=== PATIENT | male | born 1985 | race Caucasian/White ===

== ENCOUNTER 2018-12-04 15:05 | Outpatient (REF) | payer OTHER, SELFPAY ==
[2018-12-04 19:27] LABS: HCT 43.8 % (40.0-50.0); HGB 14.4 g/dL (13.5-17.5); Mean Corp. HGB Concentration 32.9 g/dL (32.0-36.0); Mean Corpuscular Hemoglobin 28.1 pg (27.0-33.0); Mean Corpuscular Volume 85.4 fL (80-95); Mean Platelet Volume 11.5 fL (8.0-11.0); Platelet Count 256 x1000/uL (130-400); RBC 5.13 m/cumm (4.50-6.00); RBC Distribution Width 12.8 % (11.8-14.1); White Blood Cell Count 7.42 k/cumm (4.4-10.8)
[2018-12-04 19:44] LABS: ALT 20 U/L (12-78); AST 12 U/L (15-37); Albumin 4.7 g/dL (3.4-5.0); Alkaline Phosphatase 73 U/L (46-116); Anion Gap 10.7 mmol/L (3-11); BUN 19 mg/dL (7-18); Bilirubin, Total 0.3 mg/dL (0.2-1.0); CO2 27.3 mmol/L (21.0-32.0); CREATININE 1.15 mg/dL (0.70-1.30); Calcium 9.4 mg/dL (8.5-10.1); Chloride 103 mmol/L (98-107); Glucose 99 mg/dL (70-100); Potassium 4.2 mmol/L (3.5-5.1); Sodium 141 mmol/L (136-145); TSH (W/Ref FT4) 8.27 uIU/mL (0.358-3.74); Total Protein 7.8 g/dL (6.4-8.2)
[2018-12-04 19:45] LABS: Hemoglobin A1C 5.7 % (4.5-6.2)
[2018-12-04 20:03] LABS: FREE T4 0.94 ng/dL (0.76-1.46)
== END 2018-12-04 15:25 ==
LOC: NCHCN 15:05
PROVIDERS: Visit Provider Nurse Practitioner Family
DX: R63.4 Abnormal weight loss (principal); Z83.3 Family history of diabetes mellitus; Z13.1 Encounter for screening for diabetes mellitus
CPT/HCPCS: 80053; 85027; 83036; 84439; 84443

== ENCOUNTER 2019-10-25 15:04 | Emergency (ER) | payer SELFPAY ==
[2019-10-25 15:10] VITALS: BP 138/74; PULSE 86; RESP 18; TEMP 37.1; O2SAT 98
--- NOTE | 2019-10-25 15:26 | ED.GENADUL_ITS ---
Discharge Plan Disposition Patient Disposition: HOME Condition: Stable Discharge Details Chief Complaint: Abd Prob Clinical Impression: Gastritis, Hernia, inguinal, right, Abdominal pain Primary Care Provider: None,None ED Provider: Mari Vila Home Meds and New Rx's Prescriptions: New sucralfate [Carafate] 100 mg/mL suspension 10 ml PO QACHS 10 Days Qty: 400 RF: 0 No Action ibuprofen 800 MG tablet 800 mg PO PRN PRNQty: 90 RF: 3 methadone 10 MG/ML concentrate 24 mg PO DAILY RF: 0 esomeprazole magnesium 20 mg Tablet,Delayed Release (Dr/Ec) 20 mg PO DAILY RF: 0 Discharge Instructions Instructions: Gastritis (ED), Abdominal Pain (ED) Additional Instructions: Follow up with primary care provider in 3-5 days. Return to ED sooner if any worsening or concerns. Increase oral fluids. Take medications as directed. Follow-up with surgery if continued pain and do not hesitate to return to the ED if any worsening. Referrals: Yvonne Ashraf DO [OSTEOPATHIC DOCTOR] - Discharge Data Discharge Date/Time-TO BE ENTERED AT DEPARTURE: 10/25/19 18:01 Medical Decision Making <EDITH Mina - Last Filed: 10/26/19 08:08> 33-year-old gentleman presenting with nausea, vomiting abdominal pain for the past 2-3 days. Patient appears uncomfortable but does not appear to have an acutely surgical abdominal examination. Patient has bilateral cremasteric reflexes present, testicles are unremarkable, nontender. I do believe I feel a small right inguinal hernia that is nontender. Evaluation certainly could be consistent with inguinal hernia, appendicitis, gastroenteritis, colitis, etc. but certainly not excluded to just these. There always could be a withdrawal component however based upon patient's history I find this to be less likely. Will obtain routine laboratory values including lactate and obtain abdomen and pelvis CT with contrast. In the meantime we will give IV fluid and Zofran. Discussed case with Dr. Tello who evaluated the patient himself. Please see his note. Laboratory values reveal a white count of 8.80 absolute neutrophils 7.01 INR 1.2 sodium 139 potassium 3.4 chloride 101, GFR greater than 60, lactate is pending as well as his urinalysis. Reports nausea is returning, will provide 25 IV Phenergan. Medical Records Medical records reviewed: Yes I reviewed the patient's medical records. Lab Data Lab results reviewed: Yes I reviewed the patient's lab results. Lab results narrative: Laboratory Tests Range/Units 10/25/19 10/25/19 10/25/19 15:20 15:20 15:20 WBC (4.4-10.8) k/cumm 8.80 RBC (4.50-6.00) m/cumm 5.59 Hgb (13.5-17.5) g/dL 15.6 Hct (40.0-50.0) % 47.2 MCV (80-95) fL 84.4 MCH (27.0-33.0) pg 27.9 MCHC (32.0-36.0) g/dL 33.1 RDW (11.8-14.1) % 12.7 Plt Count (130-400) x1000/uL 274 MPV (8.0-11.0) fL 10.5 Immature Gran % % 0.2 Neutrophils % 79.7 Lymphocytes % 13.2 Monocytes % 6.6 Eosinophils % 0.1 Basophils % 0.2 Absolute Neutrophils (1.2-6.7) k/cumm 7.01 H Absolute Lymphocytes (1.2-3.4) k/cumm 1.16 L Absolute Monocytes (0.11-0.7) k/cumm 0.58 Absolute Eosinophils (0.0-0.7) k/cumm 0.01 Absolute Basophils (0.0-0.2) k/cumm 0.02 PT (9.3-11.0) sec 12.3 H INR (0.9-1.1) 1.2 H APTT (21.0-31.4) sec 25.6 Sodium (136-145) mmol/L 139 Potassium (3.5-5.1) mmol/L 3.4 L Chloride (98-107) mmol/L 101 Carbon Dioxide (21.0-32.0) mmol/L 28.0 Anion Gap (3-11) mmol/L 10.0 BUN (7-18) mg/dL 11 Creatinine (0.70-1.30) mg/dL 1.14 Estimated GFR/1.73 m2 (mL/min/1.73m2) >= 60.00 Glucose (74-106) mg/dL 100 Calcium (8.5-10.1) mg/dL 9.5 Total Bilirubin (0.2-1.0) mg/dL 0.9 AST (15-37) U/L 18 ALT (16-63) U/L 23 Alkaline Phosphatase (46-116) U/L 57 Total Protein (6.4-8.2) g/dL 8.7 H Albumin (3.4-5.0) g/dL 5.3 H Lipase (73-393) U/L 135 <Mari Vila - Last Filed: 10/25/19 22:22> 1624: Assumed care patient from EDITH Meyers, pending lab results and CT abdomen pelvis. Lactate result is within normal limits. 1714: CT is within normal limits at this time. No evidence for appendicitis, or cholecystitis. Exam: CT Abdomen And Pelvis With Contrast Exam date and time: 10/25/2019 4:31 PM Age: 33 years old Clinical indication: Abdominal pain; Localized; Right lower quadrant (rlq); Patient HX: Rlq -groin pain, nausea, vomiting TECHNIQUE: Imaging protocol: Computed tomography of the abdomen and pelvis with intravenous contrast. COMPARISON: No relevant prior studies available. FINDINGS: Lungs: Pulmonary parenchymal calcification consistent with remote granulomatous organism exposure. Liver: Normal. No mass. Gallbladder and bile ducts: Normal. No calcified stones. No ductal dilation. Pancreas: Normal. No ductal dilation. Spleen: Normal. No splenomegaly. Adrenals: Normal. No mass. Kidneys and ureters: Normal. No hydronephrosis. Stomach and bowel: Unremarkable. No obstruction. No mucosal thickening. Appendix: No evidence of appendicitis. Intraperitoneal space: Unremarkable. No free air. No significant fluid collection. Vasculature: Unremarkable. No abdominal aortic aneurysm. Lymph nodes: Unremarkable. No enlarged lymph nodes. Bladder: Unremarkable as visualized. Reproductive: Unremarkable as visualized. Bones/joints: Unremarkable. No acute fracture. Soft tissues: Unremarkable. IMPRESSION: No acute abnormality identified. Discussed results with patient, he states that he has been taking omeprazole for the last year and a half, discussed follow-up with general surgery for possible scope. We will give him a GI cocktail and Carafate to see if that helps his symptoms. Patient discharged home with a prescription of sucralfate suspension. Instructed to take twice daily. Also referral given to follow-up with general surgery for possible endoscopy. Patient was hemodynamically stable throughout his stay. Given strict return instructions to return if any worsening abdominal pain, fever or any concerns. Patient verbalized understanding. This text was generated using Wortalation system, please disregard any oddities of phrase or misspellings. <Maxi Tello MD - Last Filed: 10/25/19 17:29> Patient seen, examined, and discussed with EDITH Tejeda and ALIVIA Vila. I agree with treatment plan as discussed/documented. HPI <EDITH Mina - Last Filed: 10/26/19 08:08> General Mode of arrival: ambulatory . Date/Time Provider Initiated Documentation: 10/25/19 15:05 . Limitations to Documentation: no limitations . Information obtained by: patient . HPI Narrative: 33-year-old gentleman who reports diffuse abdominal pain worse in the right lower quadrant and right groin, nausea, vomiting, diarrhea over the past 2-3 days. He is currently being weaned off his methadone however he has never had any symptoms like this while being weaned. He was able to eat a hamburger yesterday. He denies fever, recent travel, sick contact, or bad food exposure. He denies chest pain or shortness of breath. He denies black tarry stools or bright red blood in his stools. Denies dysuria or hematuria. Denies pain in his penis, scrotum, testicles. Denies penile discharge. Patient was seen by his primary care provider and sent here for evaluation of right lower quadrant jose pain Related Data Home Medications Medication Instructions Recorded Confirmed methadone 24 mg PO DAILY 09/29/15 10/25/19 ibuprofen 800 mg PO PRN PRN #90 tab-cap 10/09/15 10/25/19 esomeprazole magnesium 20 mg PO DAILY 10/25/19 10/25/19 sucralfate [Carafate] 10 ml PO QACHS 10 Days #400 ml 10/25/19 Previous Rx's Medication Instructions Recorded sucralfate [Carafate] 10 ml PO QACHS 10 Days #400 ml 10/25/19 Allergies Allergy/AdvReac Type Severity Reaction Status Date / Time Sulfa (Sulfonamide Allergy Intermediate Hives Unverified 10/25/19 16:51 Antibiotics) General Stated Complaint: Abd Prob DELON: 3 Review of Systems <EDITH Mina - Last Filed: 10/26/19 08:08> Constitutional Constitutional: Denies fatigue, Denies fever(s) and Denies headache(s) ENT Ears, Nose, Mouth, and Throat: Denies headache(s) Cardiovascular Cardiovascular: Denies chest pain and Denies dyspnea Respiratory Respiratory: Denies cough and Denies dyspnea Gastrointestinal Gastrointestinal: Reports abdominal pain, Denies diarrhea, Reports loose stools, Reports nausea and Reports vomiting Genitourinary Genitourinary: Denies dysuria and Denies testicular pain Musculoskeletal Musculoskeletal: Reports back pain Integumentary/Breasts Skin/Breast: Denies rash Neurologic Neurologic: Denies headache(s) Endocrine Endocrine: Denies fatigue PFSH <EDITH Mina - Last Filed: 10/26/19 08:08> Medical History Narcotic abuse (Chronic) Social History Smoking/Tobacco Use Status: Former Tobacco Use Tobacco: How many years used: 13 Alcohol Intake: former Drug use: Never Substance use type: former substance user Do you feel safe at home: Yes Do you feel safe in your relationship?: Yes Exam <EDITH Mina - Last Filed: 10/26/19 08:08> Const General: cooperative, healthy appearing, uncomfortable and no acute distress Orientation: alert, awake and oriented x3 HENMT Head: normal to inspection, normocephalic and atraumatic Mouth: moist mucous membranes Throat: posterior oropharynx normal Eyes Conjunctivae: conjunctivae normal Neck Neck: normal visual inspection, full ROM, trachea midline and supple Resp Effort & Inspection: normal respiratory effort and able to speak in complete sentences Auscultation: clear to auscultation bilaterally Cardio Rate: regular rate Rhythm: regular rhythm GI Inspection: normal to inspection Palpation: soft, not firm, no guarding, no masses, not rigid and tender (Diffusely) other (There is discomfort in the right inguinal region however I do not appreciate a bulge or obvious mass); with no rebound tenderness Auscultation: normal bowel sounds Male General Exam: Yes normal external exam Penis: normal penis Meatus: meatus normal Scrotum: scrotum normal (Scrotum normal except for right inguinal hernia) and inguinal hernia on the right (Upon standing, small hernia appreciated) Testes: normal Back/Spine/Pelvis Back: No back tenderness Skin General skin exam: no rashes or lesions noted Neuro General: patient alert, patient awake, moves all extremities and no focal motor deficits Motor: muscle tone normal throughout Sensory Exam: no sensory deficits noted Extrem General: normal to inspection, full ROM and capillary refill normal Psych Appearance: grossly normal Mental Status: mental status grossly normal Course <EDITH Mina - Last Filed: 10/26/19 08:08> Vital Signs Vital signs: Vital Signs Temperature 37.1 C 10/25/19 15:10 Pulse 86 10/25/19 15:10 Respiratory Rate 18 10/25/19 15:10 Blood Pressure 138/74 10/25/19 15:10 Pulse Oximetry 98 10/25/19 15:10 Temperature 37.1 C 10/25/19 15:10 Temperature Source Temporal Artery Scan 10/25/19 15:10 Pulse 86 10/25/19 15:10 Respiratory Rate 18 10/25/19 15:10 Respiratory Effort 10/25/19 15:13 Blood Pressure 138/74 10/25/19 15:10 Blood Pressure Position Sitting 10/25/19 15:10 Pulse Oximetry 98 10/25/19 15:10 Oxygen Delivery Method Room Air 10/25/19 15:10 Oxygen Flow Rate 0 10/25/19 15:10 Pain Level 8 10/25/19 15:10 Sign Out <EDITH Mina - Last Filed: 10/26/19 08:08> Sign Out Data: Sign Out Comment: Pending CT, lactate, urinalysis. Pending reevaluation and final disposition. Last updated by Carlos Tejeda PA at 10/25/19 16:04
[2019-10-25] MEDS: Ondansetron 4 MG/2 ML VIAL IVP (15:27)
--- NOTE | 2019-10-25 15:30 | DI.CT_ITS ---
EXAM: CT ABDOMEN PELVIS W CLINICAL HISTORY: Right lower quadrant-groin pain nausea and vomitin TECHNIQUE: COMPARISON: No exams were available for comparison FINDINGS: CT examination of the abdomen and pelvis was performed with bolus infusion of 100 cc of Omnipaque 350 . Images obtained through the lung bases are unremarkable except for small calcified granuloma at the left lung base. The liver and spleen appear normal as does the pancreas. Gallbladder and bile ducts are unremarkable. Adrenals appear normal bilaterally. Kidneys appear normal with no evidence of renal mass, hydronephro sis, or nephrolithiasis There is no evidence of abdominal or pelvic adenopathy. Abdominal aorta is of normal diameter and no major vascular abnormality is seen. Appendix is normal. No evidence diverticulitis or bowel obstruction. Apart from a tiny fat containing right inguinal hernia, no abdominal wall hernia is seen. Urinary bladder may have a mildly thickened wall but this is a questionable finding due to lack of di stention. Impression: No evidence of acute process, please correlate clinically with a question of mild urinary bladder wal l thickening, cystitis not excluded.. RADIATION DOSE DELIVERED: 624.13mGy.cm Total DLP 624.13mGy.cm Total DLP 624.13mGy.cm Total DLP DATA REPOSITORY: All CT scans at this facility are submitted to the National Radiology Data Registry (NRDR) Dose Index Registry (DIR) with the [employer] (ACR). RADIATION OPTIMIZATION: All CT scans at this facility use at least one of these dose optimization te chniques: automated exposure control; mA and/or kV adjustment per patient size (includes targeted exa ms where dose is matched to clinical indication); or iterative reconstruction.
[2019-10-25 15:39] LABS: Abs Immature Grans 0.02 k/cumm (0.0-0.09); Absolute Basophil Count 0.02 k/cumm (0.0-0.2); Absolute Eosinophil Count 0.01 k/cumm (0.0-0.7); Absolute Lymphocyte Count 1.16 k/cumm (1.2-3.4); Absolute Monocyte Count 0.58 k/cumm (0.11-0.7); Absolute Neutrophil Count 7.01 k/cumm (1.2-6.7); Basophils % 0.2; Eosinophils % 0.1; HCT 47.2 % (40.0-50.0); HGB 15.6 g/dL (13.5-17.5); Immature Grans % 0.2 %; Lymphocytes % 13.2; Mean Corp. HGB Concentration 33.1 g/dL (32.0-36.0); Mean Corpuscular Hemoglobin 27.9 pg (27.0-33.0); Mean Corpuscular Volume 84.4 fL (80-95); Mean Platelet Volume 10.5 fL (8.0-11.0); Monocytes % 6.6; Neutrophils % 79.7; Platelet Count 274 x1000/uL (130-400); RBC 5.59 m/cumm (4.50-6.00); RBC Distribution Width 12.7 % (11.8-14.1)
[2019-10-25 15:52] LABS: ALT 23 U/L (16-63); AST 18 U/L (15-37); Albumin 5.3 g/dL (3.4-5.0); Alkaline Phosphatase 57 U/L (46-116); BUN 11 mg/dL (7-18); Bilirubin, Total 0.9 mg/dL (0.2-1.0); CREATININE 1.14 mg/dL (0.70-1.30); Calcium 9.5 mg/dL (8.5-10.1); Chloride 101 mmol/L (98-107); Glucose 100 mg/dL (74-106); Lipase 135 U/L (73-393); Potassium 3.4 mmol/L (3.5-5.1); Sodium 139 mmol/L (136-145); Total Protein 8.7 g/dL (6.4-8.2)
[2019-10-25] MEDS: Normal Saline 1,000 ML 1000 ML IV (15:53)
[2019-10-25 15:55] LABS: INR 1.2 (0.9-1.1); PTT Activated 25.6 sec (21.0-31.4); Prothrombin Time 12.3 sec (9.3-11.0)
--- NOTE | 2019-10-25 16:16 | NUR.NOTE ---
lactate draw off existing IV in L AC after 10mls waste and immediately sent to lab. pt requested pain medication, provider holding for CT
[2019-10-25 16:19] LABS: Lactate 1.3 mmol/L (0.6-1.4)
[2019-10-25 16:50] VITALS: BP 126/77; PULSE 66; RESP 16; TEMP 37.2; O2SAT 96
[2019-10-25] MEDS: ACETAMINOPHEN 1,000 MG/100 ML BTL 400 MG IVPB (16:55)
--- NOTE | 2019-10-25 17:04 | DI.VRAD_ITS ---
PROCEDURE INFORMATION: Exam: CT Abdomen And Pelvis With Contrast Exam date and time: 10/25/2019 4:31 PM Age: 33 years old Clinical indication: Abdominal pain; Localized; Right lower quadrant (rlq); Patient HX: Rlq -groin pain, nausea, vomiting TECHNIQUE: Imaging protocol: Computed tomography of the abdomen and pelvis with intravenous contrast. COMPARISON: No relevant prior studies available. FINDINGS: Lungs: Pulmonary parenchymal calcification consistent with remote granulomatous organism exposure. Liver: Normal. No mass. Gallbladder and bile ducts: Normal. No calcified stones. No ductal dilation. Pancreas: Normal. No ductal dilation. Spleen: Normal. No splenomegaly. Adrenals: Normal. No mass. Kidneys and ureters: Normal. No hydronephrosis. Stomach and bowel: Unremarkable. No obstruction. No mucosal thickening. Appendix: No evidence of appendicitis. Intraperitoneal space: Unremarkable. No free air. No significant fluid collection. Vasculature: Unremarkable. No abdominal aortic aneurysm. Lymph nodes: Unremarkable. No enlarged lymph nodes. Bladder: Unremarkable as visualized. Reproductive: Unremarkable as visualized. Bones/joints: Unremarkable. No acute fracture. Soft tissues: Unremarkable. IMPRESSION: No acute abnormality identified. Dictated and Authenticated by: Keith Haider MD. Ordering:AMY Gonzalez MD
[2019-10-25 17:08] LABS: Bilirubin Small (Negative); Blood Trace-intact (Negative); Clarity Clear (Clear); Glucose Negative (Negative); Ketones >=160 mg/dL (Negative); Leukocyte Esterase Negative (Negative); Nitrite Negative (Negative); Specific Gravity 1.025 (1.005-1.025); Urobilinogen 0.2 EU/dL (Up TO 0.2); pH 6.5 (5-8)
[2019-10-25 17:27] LABS: Bacteria Negative HPF (Negative); C & S Indicated? No; Casts Negative LPF (Negative); Crystals Negative HPF (Negative); Epithelial Cells Negative HPF (Negative); Mucus Moderate (Negative); Other Cells Negative (Negative); WBC 0-2 HPF (0-5)
[2019-10-25] MEDS: Sucralfate 1 GM TAB PO (17:29)
[2019-10-25 17:40] VITALS: BP 131/76; PULSE 77; RESP 16; O2SAT 99
== END 2019-10-25 18:01 | disposition home or self-care (01) ==
PROVIDERS: Physician Assistant; Emergency Provider Registered Nurse Emergency
DX: K29.00 Acute gastritis without bleeding (principal); K40.90 Unilateral inguinal hernia, without obstruction or gangrene, not specified as recurrent; R10.31 Right lower quadrant pain
CPT/HCPCS: 36415; 80053; 83690; 96361; 96365; 96375; 99284; 74177; 81003; 81015; 83605; 85025; 85610; 85730; J0131; J2405

== ENCOUNTER 2019-12-06 08:40 | Outpatient (CLI) | payer SELFPAY ==
[2019-12-09 14:45] LABS: COVID-19 RT-PCR Result NEGATIVE (Negative)
== END 2019-12-06 09:00 ==
PROVIDERS: PCP Nurse Practitioner Family; Visit Provider Surgery
DX: Z11.59 Encounter for screening for other viral diseases (principal); Z01.818 Encounter for other preprocedural examination
CPT/HCPCS: U0003

== ENCOUNTER 2019-12-09 08:18 | Day surgery (SDC) | payer SELFPAY ==
[2019-12-09 08:21] VITALS: BP 127/68; PULSE 66; RESP 17; TEMP 36.4; O2SAT 99
[2019-12-09] MEDS: Lactated Ringers 1,000 ML 80 ML IV (08:50)
--- NOTE | 2019-12-09 10:43 | STOM_PTH ---
PATIENT: Dallas Scruggs LOC: [facility] U#:[id number] AGE/SX: 34/M ROOM: RE12/09/[address]: Yvonne Ashraf : 1985 BED: DIS: 12/09/2019 SPEC #: [id number] RECD: 12/09/19 12:31 STATUS: GREGORIO REЕлена #: [id number] EVANGELIST: 12/09/19 10:[address]: Yvonne Ashraf DEPT: Surgical Specimen RECD BY: Natalia Morrissey ENTERED: 12/09/19 12:32 SP TYPE: STOMACH OTHR DR: Yary Barrera Tissues: 1 - BIOPSY BOWEL 2 - STOMACH BIOPSY 3 - STOMACH BIOPSY 4 - ESOPHAGUS BIOPSY 5 - ESOPHAGUS BIOPSY Procedures: GROSS AND MICRO LEVEL 4 Comments: [id number]
--- NOTE | 2019-12-09 10:54 | PDOC.DSDIS_ITS ---
Discharge Plan Disposition Patient Disposition: HOME Condition: Good Discharge Details Reason For Visit: VOMITING/ABDOMINAL PAIN Attending Provider: Yvonne Ashraf Primary Care Provider: Yary Barrera [place] Meds and New Rx's Prescriptions: New pantoprazole [Protonix] 40 mg tablet,delayed release (DR/EC) 40 mg PO DAILY Qty: 30 RF: 12 Discontinued esomeprazole magnesium 20 mg Tablet,Delayed Release (Dr/Ec) 20 mg PO DAILY RF: 0 No Action topiramate 50 mg capsule,extended release 24hr 50 mg PO DAILY RF: 0 rizatriptan [Maxalt] 10 mg tablet See Rx Instructions PO .COMPLEX RF: 0 ibuprofen 800 MG tablet 800 mg PO PRN PRNQty: 90 RF: 3 methadone 10 MG/ML concentrate 18 mg PO DAILY RF: 0 Discharge Instructions Additional Instructions: Findings:sm hiatal hernia -change from Nexium to Protonix -Continue with lifestyle modifications: no alcohol, tobacco products, Aspirin or NSAID's (ibuprofen, Motrin, Naprosyn, aleve, etc), soda pop/any carbonated beverages, caffeine (including tea & chocolate), and acidic foods, (tomatoes, citrus, onions, peppermints) spicy foods. Do not lie down for 30 minutes after eating, and do not eat 2 hours prior to bedtime. Avoid wearing tight fitting clothing/ belts. Follow up: on Monday to schedule hernia repair. Please call if you develop: fevers >101.5 Nausea or Vomiting Abdominal pain that is not transient DAY SURGERY UNIT POST COLONOSCOPY INSTRUCTIONS 1. Because there will be medication in your system for the next 24 hours, you may feel a little sleepy. Your coordination will be affected. Therefore: a. Do not drive or operate dangerous equipment for 24 hours. b. Do not drink alcohol beverages for 24 hours (not even beer). c. Plan to go home and rest for the day. 2. Generally there are no restrictions on your activity after a day or so has gone by, but you may feel a bit fatigued for a few days. 3 After you arrive home you may have a light meal and return to a normal diet as you can tolerate it without feeling sick to your stomach. 4. After surgery, you may feel pain or discomfort. This should be only transient, but if it persists please contact your doctor. 5. If there are any questions regarding the findings of your procedure, please feel free to contact your doctor. 6. If you are unable to contact your doctor with a problem, contact the hospital at [phone]. 7. Continue all your regular medications unless directed otherwise. I understand the above instructions and have no questions. Signature of Patient or Responsible Adult Escort Date/Time Name of Responsible Adult Escort Signature of Nurse Date/Time Activity:: No lifting over 20 pounds or strenuous activity x24 hours Diet:: Small light meals x24 hours Discharge Orders Discharge Orders: Discharge Order (Routine); Ordered 12/09/19 Ordered By: Yvonne Ashraf DS: Diagnosis Discharge Diagnosis (1) Hiatal hernia with GERD: Status: Acute
[2019-12-09 11:25] VITALS: BP 112/82; PULSE 56; RESP 16; TEMP 36.3; O2SAT 100
--- NOTE | 2019-12-11 09:02 | W.PM.ENDDOP ---
Date of service: 12/11/19 Time of Service: 09:02 Endoscopy Report DATE OF PROCEDURE: 12/09/19 PRE-OP DIAGNOSIS: n/v/abdoinal pain POST-OP DIAGNOSIS: other PROCEDURE: egd w/ bx SURGEON: Yvonne Ashraf ANESTHESIA: MAC ESTIMATED BLOOD LOSS: 1 PATHOLOGY: other COMPLICATIONS: None DISPOSITION: same day PROCEDURE DESCRIPTION: After informed consent was obtained the patient was take to the procedure room and placed in a supine position. Monitors were applied and a time out was done. The patients name, date of , procedure type, allergies to medications and metal in their body was reviewed. A bite block was placed and the patient was sedated. Once sedated and comfortable the gastroscope was advanced through the oropharynx which was grossly normal into the esophagus. The proximal and mid-esophagus were nl. In the distal esophagus there was very small hiatal hernia noted. The scope was advanced into the stomach and through the pylorus into the 3rd portion of the duodenum. The duodenum was noted to be nl. Biopsies were done . The scope was retracted back into the stomach and biopsies were done to rule out H. pylori. All specimens are retrieved and no bleeding is noted. There were no ulcers/polyp/gastritis/or on other abnormalities.. The scope was retroflexed. The cardia and fundus were noted to be normal. There very small a hiatal hernia noted. The scope was retracted back into the esophagus and biopsies were done of the GE junction to rule out Gomez's. The Z line was regular. The GE junction was at 40 cm. The scope was removed and the patient was woken up and taken back to [facility] in stable condition. Follow up: monday
== END 2019-12-09 11:42 | disposition home or self-care (01) ==
PROVIDERS: PCP Nurse Practitioner Family; Visit Provider Surgery
PROC: 0DJ68ZZ Inspection of Stomach, Via Natural or Artificial Opening Endoscopic (ICD-10-PCS; CPT 43235; principal; 2019-12-09 09:15)
DX: R11.2 Nausea with vomiting, unspecified (principal); R10.9 Unspecified abdominal pain; K44.9 Diaphragmatic hernia without obstruction or gangrene; K31.89 Other diseases of stomach and duodenum; K21.0 Gastro-esophageal reflux disease with esophagitis
CPT/HCPCS: 43239; 88305; J2001; J2704

== ENCOUNTER 2019-12-13 12:31 | Outpatient (CLI) | payer SELFPAY ==
[2019-12-15 14:39] LABS: COVID-19 RT-PCR Result NEGATIVE (Negative)
== END 2019-12-13 12:51 ==
PROVIDERS: PCP Nurse Practitioner Family; Visit Provider Surgery
DX: Z11.59 Encounter for screening for other viral diseases (principal)
CPT/HCPCS: U0003

== ENCOUNTER 2019-12-16 06:14 | Day surgery (SDC) | payer SELFPAY ==
[2019-12-16] VITALS (8 sets, daily range): BP systolic 94–133; BP diastolic 53–86; PULSE 51–78; RESP 13–18; TEMP 36–36.5; O2SAT 96–100
[2019-12-16] MEDS: Lactated Ringers 1,000 ML 100 ML IV (07:00)
[2019-12-16] MEDS: Acetaminophen 500 MG TAB 1000 MG PO (07:42)
[2019-12-16] MEDS: Gabapentin 300 MG CAP PO (07:42)
[2019-12-16] MEDS: ceFAZolin 2 GM/50 ML BAG IVPB (08:31)
[2019-12-16] MEDS: Bupivacaine LIPOSOME/PF 133 MG/10 ML VIAL IJ (08:38)
[2019-12-16] MEDS: Bupivacaine 0.5% Pres-Free 30 ML VIAL (08:38)
--- NOTE | 2019-12-16 09:47 | ROE_ITS ---
Date of service: 12/16/19 Time of Service: 09:47 Operative Note Operative Note DATE OF PROCEDURE: 12/16/19 PRE-OP DIAGNOSIS: right inguinal hernia POST-OP DIAGNOSIS: other (moedium cord lipoma. small indirect ) SURGEON: Yvonne Hinds MANUFACTURER: Shari Beasley ANESTHESIA: MAC ESTIMATED BLOOD LOSS: 0 PATHOLOGY: none sent COMPLICATIONS: None Patient was transported to: PACU Patient's condition: stable Implants: see RN notes xtra small plug used INDICATIONS: The pt is here today for surgery regarding symptomatic --- inguinal hernia that has failed outpatient conservative medical management and he is here today for repair. Informed consent was obtained, explaining risks and benefits of the procedure including but not limited to bleeding, infection, pneumonia, blood clots, chronic pain, chronic numbness, damage to testicle resulting in removal, recurrence of hernia, reaction to Mesh necessitating removal, and other unforetold complications, and complications of anesthesia-which were addressed by the DEVELOPMENT REP. The patient is marked in preOp prior to the procedure DESCRIPTION OF PROCEDURE: The pt is then brought to the operative room suite. Anesthesia was administered per the Department of Anesthesia. The patient was prepped and draped in the usual sterile fashion using ChloraPrep scrub solution. Pause for the cause was done. He did receive preop IV antibiotics, and 30 mL of .25% Marcaine w/ epinephrine was used for local anesthetization. A #12 blade was used to make an incision over the external ring. Electrocautery used to provide hemostasis and dissect down to the fascia. The fascia was pretty much obliterated and there was nothing to open. The cord is elevated. The nerve was not identified. There is a large cord lipomas. This is tied off and then excised with electrocautery returned to the abdomen. Electro-cautery is used to provide hemostasis. A [place] drain was placed around the cord to assist in mobilization. The cord was explored. There was is very small hernia sac on the cord. There is no direct hernia pushing through the floor. The hernia sac is dissected off the cord using a combination of blunt dissection and electrocautery. Electrocautery is used to provide hemostasis. There are no contents within the hernia sac. The hernia sac is than inverted and returned to the abdominal cavity. A Xsmall size plug is than inserted into the defect thr ough the internal ring, and over sewn to tighten up the ring with 2-0 vicryl. The cord structures are still able to freely move through the ring itself. The patch was then placed onto the floor, and using 2-0 Vicryl, sewn into the pubic tubercle and the shelving portions of the inguinal ligament, in the standard Lichenstein fashion. The tails of the mesh are brought around the cord, sewn together w/ 2-0 Vicryl, and tucked under the external oblique. The wound was copiously irrigated. There was no bleeding noted. The drain was removed. All structures are returned to normal anatomical position. The nerve is not sewn into the mesh, nor caught up in any sutures. The external oblique is re- approximated using 2-0 vicryl in a running fashion. Deep tissue was approximated with 3-0 Vicryl in a running fashion, and skin was approximated with 4-0 Monocryl in a running subcuticular fashion. Skin glue and sterile dressings are applied. The patient tolerated the procedure without complications to recovery in stable condition. YVONNE HINDS DO
--- NOTE | 2019-12-16 09:56 | PDOC.DSDIS_ITS ---
Discharge Plan Disposition Patient Disposition: HOME Condition: Good Discharge Details Reason For Visit: R INGUINAL HERNIA REPAIR Attending Provider: Yvonne Ashraf Primary Care Provider: Yary Barrera Home Meds and New Rx's Prescriptions: New hydrocodone-acetaminophen [Luck] 5-325 mg tablet 1 tab PO Q6H PRN (Reason: pain (scale score 7-10)) Qty: 10 RF: 0 Continued rizatriptan [Maxalt] 10 mg tablet See Rx Instructions PO .COMPLEX RF: 0 methadone 10 mg/mL concentrate 16 mg PO Q6H RF: 0 pantoprazole 40 mg tablet,delayed release (DR/EC) 40 mg PO DAILY Qty: 30 RF: 0 Discontinued ibuprofen 800 MG tablet 800 mg PO PRN PRNQty: 90 RF: 3 Discharge Instructions Additional Instructions: Dr. Ashraf HERNIA REPAIR ? POSTOPERATIVE INSTRUCTIONS Patients who have this type of surgery can usually be expected to return to work within two weeks and have minimal amounts of discomfort. ? ACTIVITY: The day of surgery should be spent resting. However, you can be up for short periods of time, I.E., going to the bathroom or kitchen. Avoid lifting or straining. On the day following surgery, you can be up and about as desired. ? LIFTING: Restrict your lifting to no more than five (5) pounds for the first w [place] following surgery. For the second week after surgery, don?t lift more than ten pounds. We will decide when you are done with restrictions and when you can return to work, at your follow-up appointment. ? DIET: There are no dietary restrictions following surgery. However, you may want to start with small amounts of liquids to avoid nausea the day of surgery. ? INCISION CARE: You will notice purple skin glue closing the incision. Do not peel this off- it will wear off on its own. After 24 hours you may shower. The dressing may be replaced for comfort, but is not necessary. An ice bag may be applied to the incision for 72 hours following surgery. ? SIGNS OF INFECTION: It is not unusual to have some black and blue discoloration of the skin around the incision, but also scrotum and penis. It will slowly disappear. If you have any increased redness, drainage, fever (above 100 degrees), please contact your doctor for an examination. ? DISCOMFORT: You may expect to have some mild discomfort at the incision sight. If severe pain develops you should contact your doctor for further instructions. ? URINATION: Patients who have surgery occasionally have problems urinating. If you experience problems and are not able to urinate within 6 hours following your surgery, please call your doctor immediately or go to your nearest Emergency Room for evaluation. ? DRIVING: NO driving for five (5) days after surgery or if you are still taking narcotic pain medication. ? MEDICATIONS: Alternate Tylenol 1000mg by mouth every 8hours. Use ICE! Twenty minutes on, and then off, continuously for the first 72hours. If you are taking narcotic pain medication, follow the instructions on the label and do not drive. Pain medications can make you very constipated. Make sure you are moving your bowels daily. If not, take Miralax, milk of magnesia or magnesium citrate. ? REPORT: Unusual swelling, severe pain, unresolved nausea, signs of infection, or difficulty in urination to your surgeon. Follow up in clinic with Dr. Ashraf in 1-2 weeks. [phone] Activity:: no lifting over 5#'s x 2 wks Shower/Bathe:: 24 hours Diet:: small light meals x 24 hrs Discharge Orders Discharge Orders: Discharge Order (Routine); Ordered 12/16/19 Ordered By: Yvonne Ashraf
== END 2019-12-16 12:40 | disposition home or self-care (01) ==
PROVIDERS: PCP Nurse Practitioner Family; Visit Provider Surgery
PROC: (CPT 49505; principal; 2019-12-16 07:30)
DX: K40.90 Unilateral inguinal hernia, without obstruction or gangrene, not specified as recurrent (principal); D17.6 Benign lipomatous neoplasm of spermatic cord; G89.18 Other acute postprocedural pain; K21.9 Gastro-esophageal reflux disease without esophagitis
CPT/HCPCS: 49505; 76942; C1781; J0690; J1100; J1885; J2001; J2405; J2704

== ENCOUNTER 2020-03-20 11:16 | Outpatient (CLI) | payer OTHER, SELFPAY ==
--- NOTE | 2020-03-20 09:00 | DI.RAD_ITS ---
EXAM: XR CERVICAL SPINE COMP 4-5V CLINICAL HISTORY: No trauma. Neck to hand numbness. R20.0 ANESTHESIA OF SKIN,. TECHNIQUE: 2D digital imaging was performed. COMPARISON: No exams were available for comparison FINDINGS: BONES: No fracture or destructive lesion. Vertebral bodies are unremarkable. DISKS: Intervertebral disc spaces are maintained. ALIGNMENT: Cervical spinal alignment is within normal limits. The odontoid and atlantoaxial articulat ions are normal. SOFT TISSUE: Normal. The lung apices are clear. IMPRESSION: Unremarkable radiographs of the cervical spine. DATA REPOSITORY: RADIATION DOSE DELIVERED:
== END 2020-03-20 11:36 ==
PROVIDERS: PCP Nurse Practitioner Family; Visit Provider Nurse Practitioner Family
DX: R20.0 Anesthesia of skin (principal)
CPT/HCPCS: 72050

== ENCOUNTER 2020-05-11 08:47 | Emergency (ER) | payer SELFPAY ==
[2020-05-11 08:50] VITALS: BP 143/90; PULSE 99; RESP 16; TEMP 36.5; O2SAT 99
--- NOTE | 2020-05-11 08:57 | DI.CT_ITS ---
EXAM: CT ABDOMEN PELVIS W CLINICAL HISTORY: Abdominal Pain. TECHNIQUE: Imaging Protocol: Axial computed tomography images with coronal and sagittal reformatted images were created and reviewed CONTRAST MATERIAL: Intravenous: Omnipaque 100cc Oral: No COMPARISON: CT CT ABDOMEN PELVIS W from 10/25/2019 FINDINGS: VISUALIZED LUNG BASES: No nodules nor pleural effusions evident. ABDOMEN: There is no ascites. LIVER: There are no obvious focal hepatic lesions evident . GALLBLADDER/BILIARY: No obvious gallbladder pathology. CBD is not dilated. PANCREAS: No evidence of pancreatic mass nor dilatation of the pancreatic duct. SPLEEN: Spleen is not enlarged. No obvious intrasplenic lesions. Splenic and portal veins are paten t. ADRENALS: There are no significant adrenal masses. KIDNEYS: No calculi nor hydronephrosis. No solid renal masses. No cysts evident. ABDOMINAL AORTA: Abdominal aorta is not enlarged and there is no qjthzhybmvyoaou-zjcq-hptwjo adenopat hy. ABDOMINAL WALL/GI: No evidence of significant anterior abdominal wall hernia. No bowel obstruction. PELVIS: GI: No evidence of appendicitis.No evidence of sigmoid diverticulitis.Increased density is seen in th e mesentery of the mid pelvis, possibly significant versus just a conglomeration of bowel loops. Ora l contrast would be full here. LYMPH NODES: There is no intrapelvic nor inguinal adenopathy. REPRODUCTIVE: Prostate not enlarged. URINARY BLADDER: No calculi nor obvious masses evident OSSEOUS: No significant osseous lesions. IMPRESSION: 1. Study somewhat limited by the paucity of intraperitoneal fat. no ascites no bowel obstruction or obvious acute inflammatory process. There is subtle mesenteric density in the mid pelvis level which may just be lobulation bowel loops but I feel that added specificity would be gained by repeating th is study with abundant oral contrast. Findings and recommendations discussed with ER provider. RADIATION DOSE DELIVERED: 552.68mGy.cm Total DLP DATA REPOSITORY: All CT scans at this facility are submitted to the National Radiology Data Registry (NRDR) Dose Index Registry (DIR) with the [employer] (ACR). RADIATION OPTIMIZATION: All CT scans at this facility use at least one of these dose optimization te chniques: automated exposure control; mA and/or kV adjustment per patient size (includes targeted exa ms where dose is matched to clinical indication); or iterative reconstruction.
--- NOTE | 2020-05-11 08:58 | ED.GENADUL_ITS ---
Discharge Plan Disposition Patient Disposition: HOME Condition: Stable Discharge Details Clinical Impression: Gastroenteritis, Blood in stool Primary Care Provider: Yary Barrera ED Provider: Mari Vila Home Meds and New Rx's Prescriptions: New dicyclomine 20 mg tablet 20 mg PO BID PRN (Reason: stomach cramps) Qty: 14 RF: 0 Continued rizatriptan [Maxalt] 10 mg tablet See Rx Instructions PO .COMPLEX RF: 0 methadone 10 mg/mL concentrate 1 mg PO DAILY RF: 0 esomeprazole magnesium [Nexium] 40 mg capsule,delayed release(DR/EC) 40 mg PO DAILY Qty: 30 RF: 12 trazodone 50 mg Tablet 50 mg PO DAILY RF: 0 fluoxetine 10 mg capsule 10 mg PO DAILY RF: 0 No Action hydroxyzine HCl 50 mg tablet 50 mg PO TID RF: 0 Discharge Instructions Instructions: Gastroenteritis (ED), Melena (ED) Additional Instructions: Try taking an antacid such as Pepcid or Prevacid which you can get [id number]. Follow up with primary care provider in 3-5 days. Return to ED sooner if any worsening or concerns. Increase oral fluids. The CT scan today shows no abnormality. However you may have an enteritis or an inflammation of your bowel which is causing the pain and the blood in your stool. Take the dicyclomine as needed for stomach cramps. Return to the ED for any worsening symptoms, dizziness, vomiting or any concerns. Follow-up with general surgery for a colonoscopy. Referrals: Lyn Roman MD [ [facility] STAFF PHYSICIAN] - Yary Barrera [Primary Care Provider] - Discharge Data Discharge Date/Time-TO BE ENTERED AT DEPARTURE: 05/11/20 13:33 Medical Decision Making 34-year-old male presents to the ED with chief complaint of abdominal pain. He states this is been ongoing for approximately 1 month. Collect stool over the last 24 to 48 hours. He describes suprapubic tenderness and right lower quadrant tenderness. He does have a history of right inguinal hernia repair. He denies any dysuria, nausea vomiting. He states that he was having diarrhea prior to the onset of black stools. He did take some Pepto-Bismol last night. But he states that the dark stool started before the Pepto-Bismol. He describes the pain like needles. He states the pain radiates into his back. He does have a past medical history of carpal tunnel syndrome, hiatal hernia with GERD. He denies drinking any alcohol does not take any Tylenol or ibuprofen. Patient has refused digital rectal exam. I did stress the importance of this test and encouraged patient if he is able to to give us a stool sample if possible. He verbalizes understanding. Work-up ordered including CBC, CMP, urinalysis which are all within normal limits. 1121: Spoke with radiologist Dr. Garcia who recommended repeating the CT with oral contrast. Discussed this with patient who verbalizes understanding and agrees to the plan. We will add on stool specimen sample. Exam(s) a CT:CT abdomen & pelvis w EXAM: CT ABDOMEN PELVIS W CLINICAL HISTORY: Abdominal Pain. TECHNIQUE: Imaging Protocol: Axial computed tomography images with coronal and sagittal reformatted images were created and reviewed CONTRAST MATERIAL: Intravenous: Omnipaque 100cc Oral: No COMPARISON: CT CT ABDOMEN PELVIS W from 10/25/2019 FINDINGS: VISUALIZED LUNG BASES: No nodules nor pleural effusions evident. ABDOMEN: There is no ascites. LIVER: There are no obvious focal hepatic lesions evident . GALLBLADDER/BILIARY: No obvious gallbladder pathology. CBD is not dilated. PANCREAS: No evidence of pancreatic mass nor dilatation of the pancreatic duct. SPLEEN: Spleen is not enlarged. No obvious intrasplenic lesions. Splenic and portal veins are patent. ADRENALS: There are no significant adrenal masses. KIDNEYS: No calculi nor hydronephrosis. No solid renal masses. No cysts evident. ABDOMINAL AORTA: Abdominal aorta is not enlarged and there is no cwygaqcmylgewrl-uxje-amrvyo adenopathy. ABDOMINAL WALL/GI: No evidence of significant anterior abdominal wall hernia. No bowel obstruction. PELVIS: GI: No evidence of appendicitis.No evidence of sigmoid diverticulitis.Increased density is seen in the mesentery of the mid pelvis, possibly significant versus just a conglomeration of bowel loops. Oral contrast would be full here. LYMPH NODES: There is no intrapelvic nor inguinal adenopathy. REPRODUCTIVE: Prostate not enlarged. URINARY BLADDER: No calculi nor obvious masses evident OSSEOUS: No significant osseous lesions. IMPRESSION: 1. Study somewhat limited by the paucity of intraperitoneal fat. no ascites no bowel obstruction or obvious acute inflammatory process. There is subtle mesenteric density in the mid pelvis level which may just be lobulation bowel loops but I feel that added specificity would be gained by repeating this study with abundant oral contrast. Findings and recommendations discussed with ER provider. Patient agrees to wait approximately [address] He is drinking the oral contrast. Stool specimen obtained by staff technologist, informed by staff technologist that it was guaiac positive. Patient is requesting to leave as he has an appointment at 2:00. COMPARISON: CT CT ABDOMEN PELVIS W from 05/11/2020 FINDINGS: VISUALIZED LUNG BASES: No nodules nor pleural effusions evident. ABDOMEN: This is follow-up from earlier today for better evaluation of the small bowel loops in the pelvis. There is no bowel obstruction. The oral contrast has passed into the colon and there is not reveal obvious abnormality within the small bowel loops within the pelvis. No intussusception noted. No obvious adenopathy. No ascites. Also no ascites in the abdomen and pelvis. IMPRESSION: 1. No evidence of bowel obstruction. Patient was given a prescription for dicyclomine for muscle cramps, discuss strict return instructions, verbalized understanding. Referral placed for general surgery for possible colonoscopy due to GI bleeding. Patient was hemodynamically stable throughout stay and prior to discharge. Lab work was largely unremarkable. This text was generated using [employer] dictation system, please disregard any oddities of phrase or misspellings. HPI General Mode of arrival: ambulatory . Date/Time Provider Initiated Documentation: 05/11/20 08:49 . Limitations to Documentation: no limitations . Information obtained by: patient . HPI Narrative: 34-year-old male presents to the ED with chief complaint of abdominal pain. He states this is been ongoing for approximately 1 month. Collect stool over the last 24 to 48 hours. He describes suprapubic tenderness and right lower quadrant tenderness. He does have a history of right inguinal hernia repair. He denies any dysuria, nausea vomiting. He states that he was having diarrhea prior to the onset of black stools. He did take some Pepto-Bismol last night. But he states that the dark stool started before the Pepto-Bismol. He describes the pain like needles. He states the pain radiates into his back. He does have a past medical history of carpal tunnel syndrome, hiatal hernia with GERD. He denies drinking any alcohol does not take any Tylenol or ibuprofen. Related Data Home Medications Medication Instructions Recorded Confirmed rizatriptan 10 mg tablet See Rx Instructions PO .COMPLEX 07/02/20 12/14/20 esomeprazole magnesium 40 mg 40 mg PO DAILY #30 cap 02/12/20 05/11/20 capsule,delayed release methadone 10 mg/mL oral concentrate 1 mg PO DAILY ml 04/15/20 05/11/20 dicyclomine 20 mg PO BID PRN #14 tab 05/11/20 05/11/20 fluoxetine 10 mg PO DAILY 05/11/20 05/11/20 hydroxyzine HCl 50 mg tablet 50 mg PO TID tab 05/11/20 05/11/20 trazodone 50 mg PO DAILY 05/11/20 05/11/20 Previous Rx's Medication Instructions Recorded esomeprazole magnesium 40 mg 40 mg PO DAILY #30 cap 02/12/20 capsule,delayed release dicyclomine 20 mg PO BID PRN #14 tab 05/11/20 Allergies Allergy/AdvReac Type Severity Reaction Status Date / Time Sulfa (Sulfonamide Allergy Intermediate Hives Verified 05/11/20 14:53 Antibiotics) General Stated Complaint: Abd Prob DELON: 3 Review of Systems Narrative: Constitutional: Negative for weight loss, alert and oriented, well groomed, normal body habitus, appears comfortable. HEENT: Denies trauma, headaches, blurry vision, nasal discharge, sore throat, trouble swallowing. Chest: Denies chest pain, palpitations, irregular rhythm, hypertension. Respiratory: Denies Shortness of breath, cough, hemoptysis. GI: Denies nausea, vomiting, constipation. Reports suprapubic abdominal pain. : Denies dysuria, hematuria, flank pain, reports black stools. Neuro: Denies dizziness, blurry vision, weakness, syncope, headache or facial numbness. Hematologic: Denies easy bruising, intolerance to heat or cold, hair loss. [facility] History Cubital tunnel syndrome on left Hiatal hernia with GERD History of heroin use per pt. hasn't used in 10 years Left carpal tunnel syndrome Migraine Narcotic abuse No, but I do smoke pot though Neck pain pt. denies Numbness and tingling in left arm Paresthesia and pain of left extremity Prediabetes pt unsure Preop testing Right inguinal hernia Unintentional weight loss Surgical History History of esophagogastroduodenoscopy (EGD) History of right inguinal hernia repair (~11/2019) Social History Smoking/Tobacco Use Status: Former Tobacco Use Quit Date: 05/29/13 Tobacco: How many years used: 13 Smoking risk assessment performed?: Yes Alcohol Intake: former Drug use: Never Substance use type: former substance user and marijuana Details: Per pt. vapes marijuana daily, but does not do any other drugs, per pt. has not used heroin in 10+ years. Current gender identity: male Do you feel safe at home: Yes Do you feel safe in your relationship?: Yes Exam Narrative Exam Narrative: Constitutional: Alert and oriented x3. Appears stated age. Normal body habitus. Head: Normocephalic, no trauma. Eyes: Pupils PERRLA, Red reflex noted, EOM's intact. Eyelids symmetrical without lesions, discharge, or swelling. ENT: Bilateral TM's WNL, External ear normal to inspection, no mastoid TTP, swelling, or erythema, Nasal turbinates WNL, no nasal discharge. Normal dentition, Posterior pharynx WNL, no exudate. Chest: RRR, Normal S1, S2, distal pulses intact. Resp: Lungs clear to auscultation bilaterally, no wheezes, rales, or rhonchi. Abdomen: Soft, nondistended, tender to palpation right upper quadrant and right lower quadrant. Tender over suprapubic area. There is a healed incision noted over the right inguinal area. Musculoskeletal: Normal gait, 5/5 strength to all four extremities. Skin: No suspicious rashes or lesions. Capillary refill less than 2 sec. Neurologic: Cranial nerves II-XII intact. Alert and oriented x 3. DTR's intact. Hematologic/Lymphatic: No ecchymosis, no lymphadenopathy. Course Vital Signs Vital signs: Vital Signs Temperature 36.5 C 05/11/20 08:50 Pulse 99 H 05/11/20 08:50 Respiratory Rate 16 05/11/20 08:50 Blood Pressure 143/90 H 05/11/20 08:50 Pulse Oximetry 99 05/11/20 08:50 Temperature 36.5 C 05/11/20 08:50 Pulse 99 H 05/11/20 08:50 Respiratory Rate 16 05/11/20 08:50 Respiratory Effort Non-Labored 05/11/20 08:56 Blood Pressure 143/90 H 05/11/20 08:50 Pulse Oximetry 99 05/11/20 08:50 Pain Level 6 05/11/20 08:50
[2020-05-11] MEDS: Normal Saline 1,000 ML 1000 ML IV (09:39)
[2020-05-11] MEDS: Normal Saline Flush 10 ML SYR IVP ×2 (09:40→10:47)
[2020-05-11 09:53] LABS: Abs Immature Grans 0.02 10^3/uL (0.0-0.06); Absolute Basophil Count 0.06 10^3/uL (0.0-0.2); Absolute Eosinophil Count 0.07 10^3/uL (0.0-0.7); Absolute Lymphocyte Count 1.77 10^3/uL (1.2-3.4); Absolute Monocyte Count 0.34 10^3/uL (0.1-0.8); Absolute Neutrophil Count 5.33 10^3/uL (1.2-6.7); Basophils % 0.8; Eosinophils % 0.9; HCT 48.5 % (40.0-50.0); Immature Grans % 0.3; Lymphocytes % 23.3; MCH 28.8 pg (27.0-33.0); MCV 87.2 fL (80-95); MPV 10.6 fL (8.0-11.0); Monocytes % 4.5; Neutrophils % 70.2; Nucleated RBC 0 %; Platelet Count 277 10^3/uL (130-400); RBC 5.56 10^6/uL (4.36-5.78); RDW 11.8 % (11.8-14.1); RDW-SD 38.2 fL; WBC 7.59 10^3/uL (4.4-10.8)
[2020-05-11 09:54] LABS: Bilirubin Negative (Negative); Blood Trace-intact (Negative); Clarity Clear (Clear); Glucose Negative (Negative); Ketones Negative (Negative); Leukocyte Esterase Negative (Negative); Nitrite Negative (Negative); Specific Gravity >= 1.030 (1.005-1.025); Urobilinogen 0.2 EU/dL (Up TO 0.2)
[2020-05-11 10:02] LABS: ALT 16 U/L (16-63); AST 14 U/L (15-37); Albumin 4.8 g/dL (3.4-5.0); Alkaline Phosphatase 54 U/L (46-116); Anion Gap 7.7 mmol/L (3-11); BUN 21 mg/dL (7-18); Bilirubin, Total 0.8 mg/dL (0.2-1.0); CO2 29.3 mmol/L (21.0-32.0); CREATININE 1.29 mg/dL (0.70-1.30); Calcium 8.8 mg/dL (8.5-10.1); Chloride 102 mmol/L (98-107); Glucose 98 mg/dL (74-106); Lipase 150 U/L (73-393); Magnesium 2.1 mg/dL (1.8-2.4); Potassium 3.9 mmol/L (3.5-5.1); Sodium 139 mmol/L (136-145); Total Protein 8.2 g/dL (6.4-8.2)
[2020-05-11 10:10] LABS: Bacteria Few HPF (Negative); C & S Indicated? No; Casts 0-2 Hyaline LPF (Negative); Crystals Negative HPF (Negative); Epithelial Cells Rare HPF (Negative); Mucus Heavy (Negative); RBC 0-2 HPF (0-2); WBC 0-2 HPF (0-5)
[2020-05-11] MEDS: Omnipaque 350 MG/ML 100 ML BTL IV (10:44)
[2020-05-11] MEDS: Normal Saline - Diluent 50 ML VIAL IV (10:45)
--- NOTE | 2020-05-11 11:22 | DI.CT_ITS ---
EXAM: CT ABDOMEN PELVIS WO CLINICAL HISTORY: Eval bowel, abdominal pain. TECHNIQUE: Imaging Protocol: Axial computed tomography images with coronal and sagittal reformatted images were created and reviewed CONTRAST MATERIAL: Intravenous: none Oral: Yes. However, the patient was only able to tolerate 1 bottle of oral contrast COMPARISON: CT CT ABDOMEN PELVIS W from 05/11/2020 FINDINGS: VISUALIZED LUNG BASES: No nodules nor pleural effusions evident. ABDOMEN: This is follow-up from earlier today for better evaluation of the small bowel loops in the pelvis. There is no bowel obstruction. The oral contrast has passed into the colon and there is not reveal ob vious abnormality within the small bowel loops within the pelvis. No intussusception noted. No obviou s adenopathy. No ascites. Also no ascites in the abdomen and pelvis. IMPRESSION: 1. No evidence of bowel obstruction. RADIATION DOSE DELIVERED: 491.74mGy.cm Total DLP DATA REPOSITORY: All CT scans at this facility are submitted to the National Radiology Data Registry (NRDR) Dose Index Registry (DIR) with the [employer] (ACR). RADIATION OPTIMIZATION: All CT scans at this facility use at least one of these dose optimization te chniques: automated exposure control; mA and/or kV adjustment per patient size (includes targeted exa ms where dose is matched to clinical indication); or iterative reconstruction.
[2020-05-11] MEDS: Omnipaque 350 MG/ML 50 ML BTL IJ (12:41)
[2020-05-11 13:36] VITALS: BP 135/83; PULSE 67; RESP 16; TEMP 36.7; O2SAT 100
--- NOTE | 2020-05-11 13:36 | NUR.NOTE ---
referral faxed to [facility]Nursing Note:
[2020-05-12 11:33] LABS: Campylobacter PCR Negative (Negative); Salmonella PCR Negative (Negative); Shiga Toxin PCR Negative (Negative); Shigella/Enteroinvasive Ecoli Negative (Negative)
== END 2020-05-11 13:33 | disposition home or self-care (01) ==
PROVIDERS: Emergency Provider Registered Nurse Emergency; PCP Nurse Practitioner Family
DX: K92.1 Melena (principal); K52.9 Noninfective gastroenteritis and colitis, unspecified
CPT/HCPCS: 36415; 80053; 83690; 86850; 86900; 86901; 87505; 96360; 96361; 99285; 74176; 74177; 81003; 81015; 82270; 83735; 85025; 99284; J3490; Q9967

== ENCOUNTER 2020-05-11 15:16 | Outpatient (CLI) | payer OTHER, SELFPAY ==
--- NOTE | 2020-05-11 15:00 | DI.RAD_ITS ---
EXAM: XR WRIST LT COMP NAVICULAR CLINICAL HISTORY: left wrist pain. TECHNIQUE: 2D digital imaging was performed. COMPARISON: No exams were available for comparison FINDINGS: There is no evidence of fracture or dislocation. Step K full lunate distance is normal. Bone densit y normal. No osseous lesions. IMPRESSION: No fracture evident. DATA REPOSITORY: RADIATION DOSE DELIVERED:
== END 2020-05-11 15:36 ==
PROVIDERS: PCP Nurse Practitioner Family; Referring Provider Nurse Practitioner Family; Visit Provider Physician Assistant
DX: M25.532 Pain in left wrist (principal)
CPT/HCPCS: 73110

== ENCOUNTER 2020-06-04 02:04 | Outpatient (CLI) | payer BC, SELFPAY ==
[2020-06-05 14:40] LABS: COVID-19 RT-PCR UVMMC Result Negative (Negative)
== END 2020-06-04 02:24 ==
PROVIDERS: PCP Nurse Practitioner Family; Visit Provider Surgery
DX: Z11.59 Encounter for screening for other viral diseases (principal); Z01.818 Encounter for other preprocedural examination
CPT/HCPCS: U0003

== ENCOUNTER 2020-06-08 11:45 | Day surgery (SDC) | payer BC, SELFPAY ==
--- NOTE | 2020-06-08 06:59 | W.COLOREPORT ---
Date of service: 06/08/20 Time of Service: 13:09 Colonoscopy Report Date of procedure: 06/08/20 Pre-op diagnosis general: abdominal pain Post-op diagnosis procedure note: same (and polyps) Procedure: Colonoscopy with polypectomy Surgeon: Jessica Villegas Anesthesia proc note operative: other (General/ASA 2/Shabbir Montano CRNA) Estimated blood loss (mL): 3 Pathology: other (descending colon polyp, rectal polyp) Complications: None Disposition: same day Indications: Mr. Scruggs is a 34 year old male who is here today to discuss a colonoscopy. He tells me that he has had constant dina-umbilical pain as well as intermittent worsening of the pain. He has 3 soft BM's a day. He denies diarrhea or constipation. He had a CT scan done which was normal. He has had no blood in his stool. No burning with urination and no urinary frequency. He has had some weight loss although it has been a slow loss since he started weaning himself off the methadone. He tells me he was 135 lb before starting methadone and then gained weight while on Methadone to 180 lb. Now he is back down to 135 lb. He has a family history of colon polyps and a remote history of colon cancer in his maternal great-grandmother. Prep: Miralax/Dulcolax Procedure Start Time: 13:09 Procedure End Time: 13:34 Retraction Time: 14 minutes Findings: 2 small polyps Procedure Description: After informed consent was obtained the patient was taken to the procedure room and placed in a left decubitous position. Monitors were applied and a time out was done. The patients name, date of , procedure, allergies to medications and metal in their body was reviewed. The patient was then sedated. Once sedated and comfortable a rectal exam was done. External exam was normal. Internal exam revealed a normal sphincter tone and no palpable masses. The prostate felt smooth but slightly enlarged. The scope was then introduced and retro-flexed. No internal hemorrhoids, polyps or masses were identified on retro-flexion. The scope was then advanced to the cecum without difficulty. The ileocecal vlave and appendiceal orifice were identified. The prep was good. The scope was advanced into the terminal ileum for about 10 cm. It was normal. The scope was then slowly retracted over 14 minutes back into the rectum. Polyps were removed with cold forceps in the descending colon and rectum. There was no diverticulosis noted. The scope was removed and the patient was woken up and taken back to Same day surgery in stable condition. The patient tolerated the procedure well and there were no immediate complications. Follow up: The patient should follow up in 5 years unless they develop changes in bowel habits or other new gastrointestinal complaints.
--- NOTE | 2020-06-08 07:01 | W.PM.DSUDISC ---
Discharge Plan Disposition Patient Disposition: HOME Condition: Good Discharge Details Reason For Visit: colonoscopy Attending Provider: Jessica Villegas Primary Care Provider: Leslie Briggs Home Meds and New Rx's Prescriptions: Continued rizatriptan [Maxalt] 10 mg tablet See Rx Instructions PO .COMPLEX RF: 0 methadone 10 mg/mL concentrate 1 mg PO DAILY RF: 0 esomeprazole magnesium [Nexium] 40 mg capsule,delayed release(DR/EC) 40 mg PO DAILY Qty: 30 RF: 12 trazodone 50 mg Tablet 50 mg PO DAILY RF: 0 fluoxetine 10 mg capsule 20 mg PO DAILY RF: 0 Discharge Instructions Instructions: Colorectal Polyps (DC) Additional Instructions: Findings: 2 polyps Follow up: 5 years Please call if you develop: fevers >101.5 Nausea or Vomiting Abdominal pain that is not transient DAY SURGERY UNIT POST ENDOSCOPY INSTRUCTIONS 1. Because there will be medication in your system for the next 24 hours, you may feel a little sleepy. Your coordination will be affected. Therefore: a. Do not drive or operate dangerous equipment for 24 hours. b. Do not drink alcohol beverages for 24 hours (not even beer). c. Plan to go home and rest for the day. 2. Generally there are no restrictions on your activity after a day or so has gone by, but you may feel a bit fatigued for a few days. 3 After you arrive home you may have a light meal and return to a normal diet as you can tolerate it without feeling sick to your stomach. 4. After surgery, you may feel pain or discomfort. This should be only transient, but if it persists please contact your doctor. 5. If there are any questions regarding the findings of your procedure, please feel free to contact your doctor. 6. If you are unable to contact your doctor with a problem, contact the hospital at [phone]. 7. Continue all your regular medications unless directed otherwise. I understand the above instructions and have no questions. Signature of Patient or Responsible Adult Escort Date/Time Name of Responsible Adult Escort Signature of Nurse Date/Time Activity:: Activity as Tolerated Diet:: As Tolerated Discharge Orders Discharge Orders: Discharge Order (Routine); Ordered 06/08/20 Ordered By: Jessica Villegas
[2020-06-08 11:55] VITALS: BP 126/81; PULSE 84; RESP 16; TEMP 36.4; O2SAT 98
[2020-06-08] MEDS: Lactated Ringers 1,000 ML 80 ML IV (12:10)
--- NOTE | 2020-06-08 13:26 | BOWEL_PTH ---
PATIENT: Dallas Scruggs LOC: [facility] U#:[id number] AGE/SX: 34/M ROOM: RE06/08/[address]: Jessica Villegas MD : [id number] BED: DIS: 06/08/2020 SPEC #: [id number] RECD: 06/08/20 15:30 STATUS: GREGORIO REЕлена #: [id number] EVANGELIST: 06/08/20 13:[address]: Jessica Villegas DEPT: Surgical Specimen RECD BY: Natalia Morrissey ENTERED: 06/08/20 15:30 SP TYPE: Bowel OTHR DR: Leslie Briggs Tissues: 1 - BIOPSY BOWEL 2 - BIOPSY BOWEL Procedures: GROSS AND MICRO LEVEL 4 Comments: [id number]
[2020-06-08] MEDS: FAMOTIDINE 20 MG/50 ML BAG 200 MG IVPB (13:48)
[2020-06-08 14:10] VITALS: BP 109/74; PULSE 73; RESP 16; TEMP 36.3; O2SAT 97
== END 2020-06-08 14:37 | disposition home or self-care (01) ==
LOC: SUR 12:48
PROVIDERS: PCP Nurse Practitioner Family; Visit Provider Surgery
PROC: 0DJD8ZZ Inspection of Lower Intestinal Tract, Via Natural or Artificial Opening Endoscopic (ICD-10-PCS; CPT 45378; principal; 2020-06-08 13:30)
DX: R10.33 Periumbilical pain (principal); Z83.71 Family history of colonic polyps
CPT/HCPCS: 45380; 88305; J2250; J2405; J2704

== ENCOUNTER → 2020-06-16 00:57 | Outpatient (CLI) | payer BC, SELFPAY ==
--- NOTE | 2020-06-16 08:45 | DI.MRI_ITS ---
EXAM: MR UPPER JOINT LT WO CLINICAL HISTORY: L WRIST PAIN,LT CUBITAL TUNNEL SYNDROME,G56.22,G56.02. TECHNIQUE: Multiplanar multisequence MRI was performed. COMPARISON: None. FINDINGS: The examination is limited due to patient motion artifact. BONES: There is no fracture or contusion pattern. There is a small 0.2 cm cyst in the distal capitate . JOINTS: The radiocarpal joint is unremarkable. The carpal joints are unremarkable. TENDONS: Flexors: Unremarkable. Extensors: Unremarkable. MUSCLES: Unremarkable. MEDIAN NERVE: Unremarkable on this noncontrast examination. ULNAR NERVE: Unremarkable on this noncontrast examination. No masses are seen in or around the visua lized ulnar nerve. SOFT TISSUES: There is a 0.4 x 0.2 cm small fluid collection adjacent to the pisotriquetral junction inferiorly which may represent a small ganglion cyst. LIGAMENTS: Unremarkable. TRIANGULAR FIBROCARTILAGE: Unremarkable. OTHER: IMPRESSION: 1. No masses seen in or around the visualized ulnar nerve. 2. 0.4 x 0.2 cm fluid collection adjacent to the pisotriquetral joint inferiorly which may represent a small ganglion cyst. DATA REPOSITORY:
== END ==
PROVIDERS: PCP Nurse Practitioner Family; Visit Provider Student in an Organized Health Care Education/Training Program
DX: M25.532 Pain in left wrist (principal); G56.22 Lesion of ulnar nerve, left upper limb
CPT/HCPCS: 73221

== ENCOUNTER 2020-07-01 14:42 | Outpatient (REF) | payer BC, SELFPAY ==
[2020-07-01 14:09] LABS: TSH (W/Ref FT4) 2.08 uIU/mL (0.36-3.74)
[2020-07-02 18:06] LABS: T3, Total 127 ng/dL (97-169)
== END 2020-07-01 14:43 | disposition home or self-care (01) ==
LOC: NCHCN 14:42
PROVIDERS: PCP Nurse Practitioner Family; Visit Provider Nurse Practitioner Family
DX: Z13.29 Encounter for screening for other suspected endocrine disorder (principal); Z83.49 Family history of other endocrine, nutritional and metabolic diseases
CPT/HCPCS: 84436; 84443; 84480

== ENCOUNTER 2020-07-10 01:31 | Outpatient (CLI) | payer BC, SELFPAY ==
[2020-07-11 17:05] LABS: COVID-19 RT-PCR UVMMC Result Negative (Negative)
== END 2020-07-10 01:32 | disposition home or self-care (01) ==
LOC: LBO 01:33
PROVIDERS: PCP Nurse Practitioner Family; Visit Provider Student in an Organized Health Care Education/Training Program
DX: Z20.822 Contact with and (suspected) exposure to COVID-19 (principal); Z01.818 Encounter for other preprocedural examination
CPT/HCPCS: U0003

== ENCOUNTER 2020-07-14 07:46 | Day surgery (SDC) | payer OTHER, SELFPAY ==
[2020-07-14] VITALS (8 sets, daily range): BP systolic 93–139; BP diastolic 56–90; PULSE 49–83; RESP 14–22; TEMP 36–36.6; O2SAT 97–100
--- NOTE | 2020-07-14 07:34 | W.PM.DSUDISC ---
Documented by User: Yvonne Tadeo 07/14/20 09:55 Discharge Plan Disposition Patient Disposition: HOME Condition: Good Discharge Details Reason For Visit: Left carpal and cubital tunnel syndrome Attending Provider: Ken Andrade Primary Care Provider: Leslie Briggs Home Meds and New Rx's Prescriptions: New hydrocodone-acetaminophen 5-325 mg tablet 1 tab PO Q6H PRN (Reason: pain) Qty: 12 RF: 0 Continued rizatriptan [Maxalt] 10 mg tablet See Rx Instructions PO .COMPLEX RF: 0 esomeprazole magnesium [Nexium] 40 mg capsule,delayed release(DR/EC) 40 mg PO DAILY Qty: 30 RF: 12 trazodone 50 mg Tablet 50 mg PO HS RF: 0 fluoxetine 10 mg capsule 20 mg PO DAILY RF: 0 Discharge Instructions Additional Instructions: Cubital Tunnel Decompression Discharge Instructions Activity: You should stay in the sling for the first 2 weeks for comfort. You may come out of the sling for gentle motion and hygiene but should largely remain in the sling to allow the incision site to heal. Gentle motion of the elbow, hand, wrist, and fingers is okay and encouraged after the first few days, but no repetitive activities nor heavy lifting. You may apply ice. Medications: - You have been prescribed Hydrocodone for breakthrough pain. - You may also apply ice to the surgical sites Dressings: - The initial surgical dressing should stay in place for 3 days. It may then be removed and kept clean and dry. You should cover with a light gauze dressing or bandaids. - You may shower after 3 days and get the wound wet. Follow-up: 10 days Stand Alone Forms: Raymond Baumann Tunnel Release Referrals: Ken Andrade MD [ [facility] ST[facility]FF PHYSICIAN] - Equipment/Supplies: Sling Activity:: Elevate Remove Dressings/Wound Care:: 72 hours Shower/Bathe:: 72 hours Diet:: As Tolerated Discharge Orders Discharge Orders: Discharge Order (Routine); Ordered 07/14/20 Ordered By: Yvonne Tadeo DS: Diagnosis Discharge Diagnosis (1) Cubital tunnel syndrome on left: Status: Acute (2) Left carpal tunnel syndrome: Status: Acute Documented by User: Ken Andrade MD 07/14/20 10:48 Discharge Plan Disposition Patient Disposition: HOME Condition: Good Discharge Details Reason For Visit: Left carpal and cubital tunnel syndrome Attending Provider: Ken Andrade Primary Care Provider: Leslie Briggs Home Meds and New Rx's Prescriptions: New hydrocodone-acetaminophen 5-325 mg tablet 1 tab PO Q6H PRN (Reason: pain) Qty: 12 RF: 0 Continued rizatriptan [Maxalt] 10 mg tablet See Rx Instructions PO .COMPLEX RF: 0 esomeprazole magnesium [Nexium] 40 mg capsule,delayed release(DR/EC) 40 mg PO DAILY Qty: 30 RF: 12 trazodone 50 mg Tablet 50 mg PO HS RF: 0 fluoxetine 10 mg capsule 20 mg PO DAILY RF: 0 Discharge Instructions Additional Instructions: Cubital Tunnel Decompression Discharge Instructions Activity: You should stay in the sling for the first 2 weeks for comfort. You may come out of the sling for gentle motion and hygiene but should largely remain in the sling to allow the incision site to heal. Gentle motion of the elbow, hand, wrist, and fingers is okay and encouraged after the first few days, but no repetitive activities nor heavy lifting. You may apply ice. Medications: - You have been prescribed Hydrocodone for breakthrough pain. - You may also apply ice to the surgical sites Dressings: - The initial surgical dressing should stay in place for 3 days. It may then be removed and kept clean and dry. You should cover with a light gauze dressing or bandaids. - You may shower after 3 days and get the wound wet. Follow-up: 10 days Stand Alone Forms: Raymond Baumann Tunnel Release Referrals: Ken Andrade MD [ [facility] STAFF PHYSICIAN] - Equipment/Supplies: Sling Activity:: Elevate Remove Dressings/Wound Care:: 72 hours Shower/Bathe:: 72 hours Diet:: As Tolerated Discharge Orders Discharge Orders: Discharge Order (Routine); Ordered 07/14/20 Ordered By: Yvonne Tadeo
[2020-07-14] MEDS: Lactated Ringers 1,000 ML 80 ML IV (08:25)
[2020-07-14] MEDS: ceFAZolin 2 GM/50 ML BAG IVPB (09:31)
[2020-07-14] MEDS: Sodium Bicarbonate 50 MEQ/50 ML VIAL (09:55)
[2020-07-14] MEDS: Bupivacaine 0.25% Pres-Free 30 ML VIAL (09:55)
[2020-07-14] MEDS: EPINEPHrine 1 MG/ML AMP pres-free (09:55)
--- NOTE | 2020-07-14 16:30 | ROE_ITS ---
Date of service: 07/14/20 Time of Service: 10:30 Operative Note Operative Note DATE OF PROCEDURE: 07/14/20 PRE-OP DIAGNOSIS: Left Carpal Tunnel and Right Cubital Tunnel Syndrome POST-OP DIAGNOSIS: same PROCEDURE: Left Endoscopic Carpal Tunnel Release and Left Cubital Tunnel Decompression SURGEON: Ken Andrade Refer to Anesthesia Record ESTIMATED BLOOD LOSS: 0 PATHOLOGY: none sent TOURNIQUET TIME: 20 COMPLICATIONS: None Patient was transported to: PACU Patient's condition: stable Indications: Dallas is a 34 year old male who has had symptoms of carpal and cubital tunnel syndrome. Nonoperative treatment options had been trialed. Nerve conduction studies identified the carpal and cubital tunnel as the point of compression. Given failure of nonoperative treatments and persistent symptoms, I offered operative intervention. I reviewed the technical details of a carpal tunnel release and cubital tunnel decompression with possible anterior subcutaneous transposition. I reviewed the risk of the procedure to include bleeding, infection, pain, stiffness, continued symptoms, damage to nerves and vessels. Despite these risks, the patient elected to proceed. Findings: The carpal tunnel was release with a standard endoscopic technique without difficulty and excellent visualization. There was a tightened cubital tunnel. The ulnar nerve was release from the first motor branch distally through the [place] proximally. Procedure Description: Dallas was greeted in the preoperative holding area where the correct side was identified and marked. The consent was reviewed with the patient and signed. The history and physical was updated. All questions were answered. She was taken back to the operating room. The patient was placed into the supine position on the operating room table with the left arm on an arm board. A nonsterile tourniquet was placed high onto the arm, into the axilla. All bony prominences were well padded. Prophylactic antibiotics in the form of Cefazolin were administered. The right arm was then prepped with Chloraprep and draped in a standard fashion with stockinette and extremity drape. A timeout to confirm correct identity, side and site, procedure, allergies, anesthesia, and medical concerns was performed. The surgical site was marked in the volar wrist creases in line with the radial border of the fourth ray. This area was anesthetized with approximately 6cc of 1% Lidocaine. The limb was then exsanguinated with an Esmarch. The skin was incised with a 15 blade, approximately 1cm. The skin only was cut and the deeper tissue was dissected bluntly with a tenotomy scissor, avoiding passing nerve and venous structures. The fascia was penetrated and opened bluntly. A two-prong skin hook was placed under this proximal fascial edge. A series of hamate finders were used to identify and dilate the carpal tunnel. Synovial elevator was used to free synovial attachments to the underside of the transverse carpal ligament. My thumb was kept in the palm to kenia the distal extent of the carpal tunnel and correctly position the hand. The [employer] endoscope was inserted without difficulty and without resistance. Excellent visualization showed horizontally running fibers of the transverse carpal ligament (TCL). The distal extent of the TCL was visualized and the end of the scope palpated with the thumb. The blade was elevated and withdrawn from distal to proximal. The TCL was split into two flaps. The endoscope was reinserted to confirm complete release and any remnant ligament was incised. The scope was withdrawn and the proximal aspect of the carpal tunnel was grossly inspected and appeared release with the median nerve visible. The antebrachial fascia at the level of the wrist was then freed from the overlying skin and then the underlying median nerve with blunt dissection. This was transected longitudinally for about 3cm proximal to the wrist incision. The wound was then irrigated with easy flow of irrigant distally and proximally. The incision was closed with a single 4-0 Nylon suture. The wound was dressed with Xeroform, Gauze. Attention was then turned to the elbow. The surgical site was drawn on the skin as was the medial epicondyle borders. The planned surgical field was anesthetized with 1% Lidocaine with epinephrine. The skin was incised only. The deep tissue and subcutaneous fat was dissected with a tenotomy scissors trying to protect any branches of the medial antebrachial cutaneous nerve. Any branches that were identified were retracted out of the way. The ulnar nerve was palpated and identified. A small window into the cubital tunnel, sheath overlying the nerve, was created and the nerve was able to be palpated with the [place]. A Metzenbaum scissor was then used to open up the sheath starting with Mendez's ligament. I then worked distal over the ulnar nerve releasing any constraints against the nerve all the way to the fascia of the FCU muscle belly. This muscle belly was bluntly all the way down to the first motor branch of the ulnar nerve and the overlying fascia was incised. Likewise starting there at the medial epicondyle, I proceeded to work proximally to release any constraints over the ulnar nerve. This was taken all the way to the [place] of [place]. The medial intermuscular septum was also palpated and any sharp edges against the ulnar nerve were resected and released. After fully releasing the nerve it was inspected visually. I was also able to palpate the nerve fully and reach one finger up into the proximal and distal aspects to make sure there were no constraints against the nerve. A freer elevator was also used to slide easily against the ulnar nerve without any points of constriction. The arm was then taken through range of motion. The ulnar nerve did not sublux/dislocate out of its groove behind the lateral epicondyle. Therefore, no transposition was performed. The tourniquet was then deflated. Any areas of bleeding were cauterized with bipolar electrocautery. The wound was thoroughly irrigated. The deep tissue was closed with a 3-0 Vicryl. The skin was closed with a 4-0 nylon. The wound was dressed with Xeroform, 4 x 4's, ABD, Kerlix and an Russell wrap. Dallas was transferred back to the PACU in a stable condition.
== END 2020-07-14 12:08 | disposition home or self-care (01) ==
PROVIDERS: PCP Nurse Practitioner Family; Visit Provider Student in an Organized Health Care Education/Training Program
PROC: (CPT 64718; principal; 2020-07-14 09:45)
PROC: 01N54ZZ Release Median Nerve, Percutaneous Endoscopic Approach (ICD-10-PCS; CPT 29848; 2020-07-14 09:45)
DX: G56.22 Lesion of ulnar nerve, left upper limb (principal); G56.02 Carpal tunnel syndrome, left upper limb; Y99.0 Civilian activity done for income or pay
CPT/HCPCS: 64718; 29848; J0171; J0690; J1100; J2001; J2405; J2704; L3650

== ENCOUNTER 2022-01-20 03:08 | Outpatient (CLI) | payer MEDICAID, SELFPAY ==
[2022-01-20 07:55] LABS: ALT 29 U/L (16-63); AST 17 U/L (15-37); GGT 17 U/L (15-85)
== END 2022-01-20 03:09 | disposition home or self-care (01) ==
LOC: LBO 03:09
PROVIDERS: PCP Physician Assistant; Visit Provider Nurse Practitioner Gerontology
DX: F11.20 Opioid dependence, uncomplicated (principal)
CPT/HCPCS: 36415; 82977; 84450; 84460

== ENCOUNTER 2022-02-04 14:46 | Outpatient (REF) | payer MEDICAID, SELFPAY ==
[2022-02-04 19:10] LABS: Abs Immature Grans 0.01 10^3/uL (0.0-0.06); Absolute Basophil Count 0.05 10^3/uL (0.0-0.2); Absolute Eosinophil Count 0.12 10^3/uL (0.0-0.7); Absolute Lymphocyte Count 2.03 10^3/uL (1.2-3.4); Absolute Monocyte Count 0.42 10^3/uL (0.1-0.8); Absolute Neutrophil Count 4.15 10^3/uL (1.2-6.7); Basophils % 0.7; Eosinophils % 1.8; HCT 46.2 % (40.0-50.0); HGB 14.9 g/dL (13.5-17.5); Immature Grans % 0.1; Lymphocytes % 29.9; MCH 28.2 pg (27.0-33.0); MCHC 32.3 % (32.0-36.0); MCV 88 fL (80-95); MPV 12.6 fL (8.0-11.0); Monocytes % 6.2; Neutrophils % 61.3; Platelet Count 166 10^3/uL (130-400); RBC 5.28 10^6/uL (4.36-5.78); RDW 11.9 % (11.8-14.1); RDW-SD 38.2 fL; WBC 6.78 10^3/uL (4.4-10.8)
[2022-02-04 19:30] LABS: ALT 34 U/L (16-63); AST 22 U/L (15-37); Albumin 4.6 g/dL (3.4-5.0); Alkaline Phosphatase 47 U/L (46-116); Anion Gap 10.5 mmol/L (3-11); BUN 13 mg/dL (7-18); Bilirubin, Total 0.4 mg/dL (0.2-1.0); CO2 29.5 mmol/L (21.0-32.0); Calcium 8.9 mg/dL (8.5-10.1); Calculated LDL 113 mg/dL (<100); Chloride 102 mmol/L (98-107); Cholesterol 195 mg/dL (<200); Glucose 86 mg/dL (74-106); HDL Cholesterol 60 mg/dL (40-60); Potassium 3.9 mmol/L (3.5-5.1); Sodium 142 mmol/L (136-145); T4 8.2 ug/mL (4.7-13.3); TSH (W/Ref FT4) 3.66 uIU/mL (0.36-3.74); Total Protein 7.6 g/dL (6.4-8.2); Triglyceride 111 mg/dL (<150)
[2022-02-04 19:51] LABS: Hemoglobin A1C 5.7 % (<5.7)
[2022-02-07 05:08] LABS: Vitamin D 25 Total 29.5 ng/mL (30-100)
== END 2022-02-04 14:47 | disposition home or self-care (01) ==
LOC: NCHCN 14:46
PROVIDERS: PCP Physician Assistant; Visit Provider Registered Nurse
DX: F41.9 Anxiety disorder, unspecified (principal); F39 Unspecified mood [affective] disorder
CPT/HCPCS: 80053; 80061; 82306; 83036; 84436; 84443; 85025

== ENCOUNTER 2022-03-06 05:37 | Emergency (ER) | payer MEDICAID, SELFPAY ==
[2022-03-06 05:59] VITALS: BP 142/90; PULSE 63; RESP 16; TEMP 36.4; O2SAT 96
--- NOTE | 2022-03-06 06:06 | ED.GENADUL_ITS ---
Discharge Plan Disposition Patient Disposition: HOME Condition: Improving Discharge Details Clinical Impression: Nausea and vomiting, Epigastric abdominal pain Primary Care Provider: Demetri Temple ED Provider: Sera Strickland Home Meds and New Rx's Prescriptions: New sucralfate [Carafate] 1 gram tablet 1 gm PO QACHS Qty: 14 0RF promethazine 25 mg tablet 25 mg PO TID PRN (Reason: nausea and vomiting) Qty: 7 0RF Continued rizatriptan [Maxalt] 10 mg tablet See Rx Instructions PO .COMPLEX Rx Instructions: take 1 tab at onset of headache; if no relief may repeat 1 tab after at least 2 hrs; max = 3 tabs/24 hr PO divalproex [Depakote] 250 mg tablet,delayed release (DR/EC) 250 mg PO BID Qty: 10 0RF Emgality Pen 120 mg/mL pen injector 120 mg subcut ONCE Qty: 1 5RF gabapentin 600 mg Tablet 600 mg PO HS mirtazapine 30 mg tablet 1 tab PO DAILY aripiprazole 5 mg tablet Label Comments: TAKE ONE TABLET BY MOUTH EVERY NIGHT buprenorphine-naloxone [Suboxone] 8-2 mg film 8 film sublingual DAILY Label Comments: PLACE ONE FILM UNDER THE TONGUE EVERY DAY Discharge Instructions Instructions: Acute Nausea and Vomiting (ED), Epigastric Pain (ED) Additional Instructions: Your labs today revealed that you are mildly dehydrated but otherwise show no evidence of acute concerning or significant findings. Drink plenty of fluids and get plenty of rest. Prescriptions for Phenergan for your nausea and vomiting and Carafate for your upper abdominal pain have been sent electronically to your pharmacy take as directed. Follow-up with your primary care doctor in 1 week. Return to the emergency department with any worsening or new concerning symptoms. 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 Patient appears comfortable and nontoxic. His vitals are within normal limits. His abdomen is generally tender but no obvious rigidity. He has epigastric tenderness to palpation but no tenderness in the lower quadrants. Differential diagnosis includes Suboxone related constipation, gastritis, gastroenteritis, pancreatitis, cholecystitis, small bowel obstruction. We will place an IV, bolus and include, screening labs and give a dose of IV Pepcid, IV Zofran, GI cocktail and Carafate and reassess. Patient had declined GI cocktail as he states it had caused nausea and vomiting with swallowing in the past. 0730 -- Labs reviewed. Normal white blood cell count. Normal electrolytes. Lipase within normal limits. Patient reassessed and he feels much better and would like to go home. As his symptoms have improved, I do not see indication for imaging at this time and patient is agreeable. Will send prescription for Phenergan and Carafate electronically to his pharmacy. Advised to follow up with the primary care doctor for re-evaluation. Usual and customary return precautions given prior to discharge. Medical Records Medical records reviewed: Yes I reviewed the patient's medical records. Lab Data Lab results reviewed: Yes I reviewed the patient's lab results. Labs: Laboratory Tests Range/Units 03/06/22 03/06/22 03/06/22 06:25 06:25 06:25 WBC (4.4-10.8) 10^3/uL 10.06 RBC (4.36-5.78) 10^6/uL 5.95 H Hgb (13.5-17.5) g/dL 16.8 Hct (40.0-50.0) % 50.6 H MCV (80-95) fL 85 MCH (27.0-33.0) pg 28.2 MCHC (32.0-36.0) % 33.2 RDW (11.8-14.1) % 11.9 Plt Count (130-400) 10^3/uL 240 MPV (8.0-11.0) fL 10.8 Immature Gran % 0.3 Neutrophils % 87.3 Lymphocytes % 9.3 Monocytes % 2.7 Eosinophils % 0.0 Basophils % 0.4 Nucleated RBC % (0.0-0.3) % 0.0 Absolute Neutrophils (1.2-6.7) 10^3/uL 8.78 H Absolute Lymphocytes (1.2-3.4) 10^3/uL 0.94 L Absolute Monocytes (0.1-0.8) 10^3/uL 0.27 Absolute Eosinophils (0.0-0.7) 10^3/uL 0.00 Absolute Basophils (0.0-0.2) 10^3/uL 0.04 Sodium (136-145) mmol/L 139 Potassium (3.5-5.1) mmol/L 4.0 Chloride (98-107) mmol/L 99 Carbon Dioxide (21.0-32.0) mmol/L 29.8 Anion Gap (3-11) mmol/L 10.2 BUN (7-18) mg/dL 22 H Creatinine (0.70-1.30) mg/dL 1.4 H Est GFR (CKD-EPI 2020) (mL/min/1.73m2) 65.98 Glucose (74-106) mg/dL 115 H Calcium (8.5-10.1) mg/dL 10.3 H Total Bilirubin (0.2-1.0) mg/dL 0.7 AST (15-37) U/L 16 ALT (16-63) U/L 24 Alkaline Phosphatase (46-116) U/L 61 Total Protein (6.4-8.2) g/dL 9.5 H Albumin (3.4-5.0) g/dL 5.4 H Lipase (73-393) U/L 90 Cancelled HPI General Mode of arrival: ambulatory . Date/Time Provider Initiated Documentation: 03/06/22 05:42 . Limitations to Documentation: no limitations . Information obtained by: patient . HPI Narrative: Patient is a 36-year-old male with a former history of opiate abuse on Suboxone for the past few years presents with constipation for the past few days which was relieved with Dulcolax but then followed by vomiting and what he describes as symptoms of GERD with multiple episodes of vomiting over the past 2 days. Patient states he has frequent constipation associated with his Suboxone and states this is not unusual. He states he took Dulcolax and then had multiple episodes of watery stool. He states since then he has had multiple episodes of vomiting which is mainly been bile with the last episode of vomiting this morning. Patient states he also has upper abdominal pain consistent with his GERD. He denies any fever, chest pain, shortness of breath. He states his urine has been dark in color. Related Data Home Medications Medication Instructions Recorded Confirmed rizatriptan 10 mg tablet (Maxalt) See Rx Instructions PO .COMPLEX 11/28/19 03/06/22 gabapentin 600 mg tablet 600 mg PO HS 05/11/21 03/06/22 divalproex 250 mg tablet,delayed 250 mg PO BID #10 tabs 08/31/21 03/06/22 release (Depakote) galcanezumab-gnlm 120 mg/mL 120 mg subcut ONCE #1 mL 08/31/21 03/06/22 subcutaneous pen injector (Emgality Pen) aripiprazole 5 mg tablet tab 03/06/22 03/06/22 buprenorphine 8 mg-naloxone 2 mg 8 film sublingual DAILY 03/06/22 03/06/22 sublingual film (Suboxone) mirtazapine 30 mg tablet 1 tab PO DAILY 03/06/22 03/06/22 promethazine 25 mg tablet 25 mg PO TID PRN nausea and 03/06/22 vomiting #7 tabs sucralfate 1 gram tablet (Carafate) 1 gm PO QACHS #14 tabs 03/06/22 Previous Rx's Medication Instructions Recorded divalproex 250 mg tablet,delayed 250 mg PO BID #10 tabs 08/31/21 release (Depakote) galcanezumab-gnlm 120 mg/mL 120 mg subcut ONCE #1 mL 08/31/21 subcutaneous pen injector (Emgality Pen) promethazine 25 mg tablet 25 mg PO TID PRN nausea and 03/06/22 vomiting #7 tabs sucralfate 1 gram tablet (Carafate) 1 gm PO QACHS #14 tabs 03/06/22 Allergies Allergy/AdvReac Type Severity Reaction Status Date / Time Sulfa (Sulfonamide Allergy Intermediate Hives Verified 03/06/22 06:04 Antibiotics) General Stated Complaint: Abd Prob DELON: 3 Review of Systems All systems reviewed & are unremarkable except as noted in HPI and below Constitutional Constitutional: Reports as per HPI, Denies chills and Denies fever(s) Eyes Eyes: Denies blurry vision ENT Ears, Nose, Mouth, and Throat: Denies dizziness, Denies sore throat and Denies throat swelling Cardiovascular Cardiovascular: Denies chest pain and Denies dyspnea Respiratory Respiratory: Denies cough and Denies dyspnea Gastrointestinal Gastrointestinal: Reports abdominal pain, Reports constipation, Reports diarrhea, Reports nausea and Reports vomiting Genitourinary Genitourinary: Denies hematuria and Denies dysuria Musculoskeletal Musculoskeletal: Denies back pain and Denies numbness Integumentary/Breasts Skin/Breast: Denies lesions and Denies rash Neurologic Neurologic: Denies dizziness, Denies localized weakness and Denies numbness Allergic/Immunologic Allergic/Immunologic: Denies throat swelling PFSH All Active Problems (Updated 03/06/22 @ 08:07 by Sera Strickland DO) Nausea and vomiting (Acute) Epigastric abdominal pain (Acute) Migraine headache without aura (Acute) Hernia (Chronic) Vomiting (Acute) Abdominal pain (Acute) Family history of colonic polyps (Acute) Tubular adenoma of colon (Acute) Hyperplastic colon polyp (Acute) Left wrist pain (Acute) Cubital tunnel syndrome on left (Acute) S/P decompression: 07/14/2020 Left carpal tunnel syndrome (Acute) S/P ECTR: 07/14/2020 Right inguinal hernia (Acute) Hiatal hernia with GERD (Acute) Medical History Anxiety Chronic migraine Family history of thyroid disease History of heroin use per pt. hasn't used in 11 years History of prediabetes Insomnia Narcotic abuse No, but I do smoke pot though Neck pain pt. denies Numbness and tingling in left arm Pain in left wrist Paresthesia and pain of left extremity Prediabetes pt unsure Ulnar neuritis Unintentional weight loss Surgical History History of esophagogastroduodenoscopy (EGD) History of right inguinal hernia repair (~11/2019) Social History Smoking/Tobacco Use Status: Former Tobacco Use Quit Date: 05/29/13 Tobacco: How many years used: 13 Smoking risk assessment performed?: Yes Alcohol Intake: former Drug use: Daily Substance use type: former substance user and marijuana Details: Per pt. vapes marijuana daily, but does not do any other drugs, per pt. has not used heroin in 11+ years. Marijuana: t-1, vaped Household members: significant other and other Details: stepdaughter Housing: house Number of Children: 2 current occupation: [employer] Current gender identity: male Do you feel safe at home: Yes Do you feel safe in your relationship?: Yes Exam Const General: cooperative and no acute distress Orientation: alert, awake and oriented x3 HENMT Head: normal to inspection Face and sinus: normal facial exam Eyes General: appearance normal, both eyes and all related structures Pupils: PERRL EOM: EOM intact bilaterally Neck Neck: normal visual inspection and No submandibular swelling Lymphatic: no lymphadenopathy noted Chest Chest: normal inspection of the chest and no tenderness Resp Effort & Inspection: normal respiratory effort and able to speak in complete sentences Auscultation: clear to auscultation bilaterally Cardio Rate: regular rate Rhythm: regular rhythm GI Inspection: normal to inspection Palpation: soft, not firm, not rigid and tender in the epigastrum Auscultation: hypoactive bowel sounds Male General Exam: Yes normal external exam Back/Spine/Pelvis Thoracic/Lumbar Spine: thoracic and lumbar spine normal to inspection Pelvis: no pain with anterior-posterior compression Skin General skin exam: no rashes or lesions noted Neuro General: patient alert, patient awake and patient oriented x3 Cognition: normal cognition Speech: speech normal Motor: muscle tone normal throughout Sensory Exam: no sensory deficits noted Extrem General: normal to inspection, full ROM, capillary refill normal, no calf tenderness bilaterally and no edema Psych Appearance: grossly normal Mental Status: mental status grossly normal Speech and Movement: speech and movement normal Affect: normal affect Course Vital Signs Vital signs: Vital Signs Temperature 97.6 F 03/06/22 05:59 Pulse 63 03/06/22 05:59 Respiratory Rate 16 03/06/22 05:59 Blood Pressure 142/90 H 03/06/22 05:59 Pulse Oximetry 96 03/06/22 05:59 Temperature 97.6 F 03/06/22 05:59 Temperature Source Oral 03/06/22 05:59 Pulse 63 03/06/22 05:59 Respiratory Rate 16 03/06/22 05:59 Respiratory Effort Non-Labored 03/06/22 06:02 Blood Pressure 142/90 H 03/06/22 05:59 Blood Pressure Position Supine 03/06/22 05:59 Pulse Oximetry 96 03/06/22 05:59 Oxygen Delivery Method Room Air 03/06/22 05:59 Oxygen Flow Rate 0 10/09/22 05:59 Pain Level 7 03/06/22 05:59
[2022-03-06 06:31] LABS: Abs Immature Grans 0.03 10^3/uL (0.0-0.06); Absolute Basophil Count 0.04 10^3/uL (0.0-0.2); Absolute Lymphocyte Count 0.94 10^3/uL (1.2-3.4); Absolute Monocyte Count 0.27 10^3/uL (0.1-0.8); Absolute Neutrophil Count 8.78 10^3/uL (1.2-6.7); Basophils % 0.4; HCT 50.6 % (40.0-50.0); HGB 16.8 g/dL (13.5-17.5); Immature Grans % 0.3; Lymphocytes % 9.3; MCH 28.2 pg (27.0-33.0); MCHC 33.2 % (32.0-36.0); MCV 85 fL (80-95); MPV 10.8 fL (8.0-11.0); Monocytes % 2.7; Neutrophils % 87.3; Platelet Count 240 10^3/uL (130-400); RBC 5.95 10^6/uL (4.36-5.78); RDW 11.9 % (11.8-14.1); RDW-SD 37.2 fL; WBC 10.06 10^3/uL (4.4-10.8)
[2022-03-06 06:46] LABS: ALT 24 U/L (16-63); AST 16 U/L (15-37); Albumin 5.4 g/dL (3.4-5.0); Alkaline Phosphatase 61 U/L (46-116); Anion Gap 10.2 mmol/L (3-11); BUN 22 mg/dL (7-18); Bilirubin, Total 0.7 mg/dL (0.2-1.0); CO2 29.8 mmol/L (21.0-32.0); CREATININE 1.4 mg/dL (0.70-1.30); Calcium 10.3 mg/dL (8.5-10.1); Chloride 99 mmol/L (98-107); Estimated GFR 65.98 (mL/min/1.73m2); Glucose 115 mg/dL (74-106); Lipase 90 U/L (73-393); Sodium 139 mmol/L (136-145); Total Protein 9.5 g/dL (6.4-8.2)
[2022-03-06] MEDS: Sucralfate 1 GM TAB PO (06:58)
[2022-03-06] MEDS: Normal Saline 1,000 ML 1000 ML IV (06:58)
[2022-03-06] MEDS: Famotidine 20 MG/2 ML VIAL IVP (06:58)
--- NOTE | 2022-03-06 07:47 | NUR.NOTE ---
Nursing Note:Pt continuing to decline GI cocktail. Is feeling a bit better after phenergan and fluids. Took apple juice and crackers to try as a further PO challenge.
[2022-03-06 08:20] VITALS: BP 90/64; PULSE 76; RESP 14
== END 2022-03-06 08:22 | disposition home or self-care (01) ==
PROVIDERS: Emergency Provider Physician Assistant; PCP Physician Assistant
DX: R11.2 Nausea with vomiting, unspecified (principal); R10.13 Epigastric pain; R10.817 Generalized abdominal tenderness
CPT/HCPCS: 36415; 80053; 83690; 96361; 96374; 96375; 99284; 85025

== ENCOUNTER 2022-08-31 01:30 | Outpatient (CLI) | payer OTHER, SELFPAY ==
--- NOTE | 2022-08-31 | DI.RAD_ITS ---
Exam(s) XR ELBOW LT LIMITED EXAM: XR ELBOW LT LIMITED CLINICAL HISTORY: LT ELBOW PAIN, M25.522,S/P 2 SURGERIES,ULNAR NEUROPATHY AT ELBOW, G56.22. TECHNIQUE: 2D digital imaging was performed. Three views. COMPARISON: CR XR WRIST LT COMP NAVICULAR from 05/11/2020 MR UPPER EXTREMITIES ADULT from 06/12/2021 FINDINGS: BONES: No acute fracture is present. No bony destructive lesion is seen. Small enthesophyte triceps insertion. JOINTS: The elbow is normally aligned. No joint effusion is seen. SOFT TISSUE: Surgical clips medial soft tissues. Small calcifications adjacent to medial epicondyle. IMPRESSION: Postsurgical changes. DATA REPOSITORY: RADIATION DOSE DELIVERED:
--- NOTE | 2022-08-31 | DI.MRI_ITS ---
Exam(s) MR UPPER JOINT LT WO/W EXAM: MR UPPER JOINT LT WO/W CLINICAL HISTORY: ULNAR NEUROPATHY ELBOW LUE,G56.22,?NERVE LOCATION TECHNIQUE: Multiplanar multisequence MRI was performed without intravenous contrast. COMPARISON: MR UPPER EXTREMITIES ADULT from 06/12/2021 CR XR ELBOW LT LIMITED from 08/31/2022 FINDINGS: MARROW: There is no evidence of fracture, bone contusion, nor ominous osseous lesions. ELBOW JOINT: There is no evidence of elbow joint effusion.No significant cartilage loss nor osteochon dral defect and there is no evidence of loose intra-articular body. There are no osteophytes. EPICONDYLES: There is signal abnormality and some enhancement seen in the region of the medial epicon dyle-common flexor tendon. Consistent with postsurgical changes and possible epicondylitis at this l evel.. ULNAR COLLATERAL LIGAMENT: The anterior band which extends from the medial epicondyle to the sublime tubercle of the coronoid process of the ulna is intact. This structure is the strongest ligament in t he elbow and is the main opponent to severe valgus stress. RADIAL COLLATERAL LIGAMENT: Intact TENDONS: The biceps tendon is intact. The brachialis tendon is intact. The triceps tendon is intact. CUBITAL TUNNEL/ULNAR NERVE: The ulnar nerve appears be in normal position within the cubital tunnel, posterior to the medial epicondyle. There is no evidence of arthritic spur arising from the epicondy le nor olecranon causing impingement on the ulnar nerve. There is also no evidence of soft tissue ma ss nor ganglia on cyst causing impingement at this level. OTHER FINDINGS: IMPRESSION: 1. Ulnar nerve appears to be in satisfactory position within the cubital tunnel. 2. Increased signal in this region may be related to recent surgery and/or element of medial epicondy litis. DATA REPOSITORY:
[2022-08-31] MEDS: Normal Saline Flush 10 ML SYR IVP (10:43)
[2022-08-31] MEDS: Gadoterate meglumine 20 ML SYRINGE 13 ML IVP (10:43)
--- NOTE | 2022-09-01 11:16 | DI.VRAD_ITS ---
PROCEDURE INFORMATION: Exam: MR Left Upper Extremity Joint Without and With Contrast; Elbow Exam date and time: 08/31/2022 10:19 AM Age: 36 years old Clinical indication: Pain; Elbow; Left; Prior surgery; Surgery date: 6+ months; Surgery type: Cubital release SX and carpal tunnel SX; Patient HX: ? Location of ulnar nerve, ulnar neuropathy TECHNIQUE: Imaging protocol: Magnetic resonance imaging of the left upper extremity without and with contrast. Exam focused on the elbow. Contrast material: DOTAREM; Contrast volume: 13 ml; Contrast route: INTRAVENOUS (IV); COMPARISON: MR UPPER EXTREMITIES ADULT 06/12/2021 1:27 PM FINDINGS: Bones/joints: Marrow signal of the distal humerus, proximal radius and ulna is normal. No bone marrow edema. No joint effusion. Ulnar (medial) collateral ligament: Unremarkable. No tear. Radial collateral ligament of the elbow: Unremarkable. No tear. Annular ligament of the radius: Unremarkable. No tear. Tendon of the biceps brachii: Unremarkable. No tear. Tendon of the brachialis: Unremarkable. No tear. Triceps tendon: Unremarkable. No tear. Common flexor tendon: Unremarkable. No tear. Common extensor tendon: Unremarkable. No tear. Muscles: Unremarkable. Nerves: Normal position of the ulnar nerve. No abnormal signal of the nerve. The nerve is transiting under the medial epicondyle of the humerus. The course of the ulnar nerve is normal. Soft tissues: Unremarkable. IMPRESSION: Normal position of the ulnar nerve. Dictated and Authenticated by: Jareth Pepper MD. Ordering:FILIBERTO aCbral MD
== END 2022-08-31 01:50 ==
PROVIDERS: PCP Physician Assistant; Visit Provider Nurse Practitioner
DX: M25.522 Pain in left elbow (principal); Z98.890 Other specified postprocedural states; G56.22 Lesion of ulnar nerve, left upper limb; M25.532 Pain in left wrist; M77.02 Medial epicondylitis, left elbow
CPT/HCPCS: 73070; 73223

== ENCOUNTER 2023-11-20 15:40 | Outpatient (REF) | payer MEDICAID, SELFPAY ==
[2023-11-20 16:39] LABS: ALT 93 U/L (16-63); AST 43 U/L (15-37); Albumin 4.6 g/dL (3.4-5.0); Alkaline Phosphatase 53 U/L (46-116); Anion Gap 10.5 mmol/L (3-11); BUN 22 mg/dL (7-18); Bilirubin, Total 0.46 mg/dL (0.2-1.0); CO2 29.5 mmol/L (21.0-32.0); CREATININE 1.2 mg/dL (0.70-1.30); Calcium 9.3 mg/dL (8.5-10.1); Chloride 100 mmol/L (98-107); Estimated GFR 78.89 (mL/min/1.73m2); FREE T4 0.96 ng/dL (0.76-1.46); Glucose 127 mg/dL (74-106); Potassium 4.2 mmol/L (3.5-5.1); Sodium 140 mmol/L (136-145); TSH 4.87 uIU/Ml (0.36-3.74); Total Protein 7.6 g/dL (6.4-8.2)
== END 2023-11-20 15:41 | disposition home or self-care (01) ==
LOC: NCHCN 15:40
PROVIDERS: PCP Physician Assistant; Visit Provider Physician Assistant
DX: R63.4 Abnormal weight loss (principal)
CPT/HCPCS: 80053; 84439; 84443

== ENCOUNTER 2023-12-20 10:47 | Outpatient (REF) | payer MEDICAID, SELFPAY ==
--- OUTSIDE RECORDS SUMMARY | 2023-12-20 10:56 | XMS_ITS | Encounter Summary ---
Author Organization [facility] Address [facility] [place] [address] Care Team Providers Care Business Education Professor Name Role Phone Demetri Temple Primary Care Provider [phone] Encounter Details Date Type Department Care Team (Late st Contact Info) Description 12/30/2022 9:20 AM EDT Office [place] [address] Rodrigo Smith MD [facility] [place] [address] Ulnar neuropathy at elbow of left upper extremity; Left arm pain Social History Tobacco Use Types Packs/Day Years Used Date Smoking Tobacco: Former Cigarettes Q uit: 03/10/2015 Smokeless Tobacco: Never Alcohol Use Standard Drinks/Week Comments Not Currently 0 (1 standard drink = 0.6 oz pur e alcohol) 1-2 drinks a year Sex and Gender Information Value Date Recorded Sex Assigned at Male 03/18/2021 10:29 AM EDT Gender Identity Male 03/18/2021 10:29 AM EDT Sexual Orientation Straight 03/18/2021 10 :29 AM EDT documented as of this encounter Progress Notes * Rodrigo Smith MD - 12/30/2022 9:20 AM EDT [facility] NEW VISIT NOTE CC: No chief complaint on file. HPI: The patient is a 37 y.o. male who presents with No chief complaint on file. Patient presents today with ongoing left elbow pain that radiates down to his forearm. The patient has neuropathic type pain, and notes that he has weakness in the hand, as well as pain on the dorsal, lateral, medial aspect of his elbow. He specifically has a intense pain around the medial epicondyle on his left elbow. He states that is been ongoing for some time, and had previous surgery to the area where they shaved down his medial epicondyle, and transposed his ulnar nerve, as well as did some fat grafting however this was not successful, the patient had significantly more pain after the procedure. He also had a carpal tunnel release procedure. Patient is taking methadone for the pain. Relevant labs- BMI Readings from Last 2 Encounters: 12/30/22 20.09 kg/m?? 11/22/22 20.81 kg/m?? No results found for: HA1C No results found for: INR, PT BP Readings from Last 3 Encounters: 09/28/22 125/70 08/23/22 138/83 10/08/21 (!) 137/92 No results found for: WBC, HGB, HCT, MCV, PLATELET No results found for: CHLPL No results found for: HDL No results found for: LDLCHOL No results found for: TRIG No results found for: CHOLHDL RADIOLOGY No new imaging. Physical Exam: Vitals: There were no vitals taken for this visit. - Gen: Alert and following commands, no acute distress - CV: pulses 2+ and equal - Skin: Intact skin, non-erythematous, no rashes or breakdown appreciated MSK At the left Elbow Exam Inspection: No gross deformity No effusion Palpation: ttp at the Medial epicondyle/flexor tendon mass ROM: There is full elbow ROM with flexion, extension, supination and pronation without crepitus Instability: None Strength: (R/L) Weakness with finger abduction, finger flexion Special Tests: Ulnar Nerve testing Tinel at the elbow: pos Diagnostic Ultrasound Diagnostic Musculoskeletal Ultrasound of the Left Elbow Indication: Pain and limited function. Equipment: [id number] with 4-20 MHz linear array transducer. All images from this study are archived locally. All structures were imaged in longitudinal and transverse planes. Findings: MEDIAL ELBOW Ulnar nerve: Fascicular rearrangement, hypertrophy of the median nerve beginning proximal to the medial epicondyle. Measures 5mm in circumference in the mid arm, and 7mm just before the medial epicondyle where the fascicular rearrangement occurs. The nerve also takes a sharp turn right after the medial epicondyle. Dynamic evaluation of ulnar nerve for instability/dislocation: perching of the left ulnar nerve with extension there is snapping of the nerve over the medial epicondyle. He has osteophytes and likelybony overgrowth at the Impression: Ulnar neuropathy at the medial epicondyle due to medial epicondyle overgrowth and lack of subcutaneous tissue PROCEDURE - None performed during this visit ASSESSMENT & PLAN Impression: chronic left distal arm symptoms, partially contributed to by ulnar neuropathy at the elbow. At this point Dr. Obregon's team will manage the patient with a possible surgical resolved for his ulnar nerve symptoms. It is unlikely that any conservative treatment or injections will work, given the mechanical nature of this patient's ulnar nerve injury. Should the patient decide not to undergo surgery,we can consider continued physical therapy, and other possible treatments as indicated by the patient's symptoms. Plan: - Rehab: defer. - Medications: No changes were made today.. Counseled regarding side effects and appropriate administration of medications as applicable. - Diagnostics: US provided today - Injections: defer - Medical Decision Making: Discussed surgical and non-surgical options. Detailed the patient's condition, prognosis, further work-up and treatment options. Activity modification was discussed. Answered all of the patient's questions. - F/U - as needed. Consider USG Ulnar nerve hydro-dissection as needed Return sooner if needed, advised to call with any questions or concerns in the interim. Rodrigo Smith MD Sports Construction Operations ManagerData Consultant of [facility] The note was created using dictation, please excuse any grammatical or word errors. documented in this encounter Plan of Treatment Not on file documented as of this encounter Visit Diagnoses Diagnosis Ulnar neuropathy at elbow of left upper extremity Left arm pain Pain in limb documented in this encounter Care Teams Business Education Professor Relationship Specialty Start Date End Date Demetri Temple PA [address] [place] [address] PCP - General Internal Medicine 08/29/22 documented as of this encounter
--- OUTSIDE RECORDS SUMMARY | 2023-12-20 10:56 | XMS_ITS | Encounter Summary ---
[place] [address] Care Team Providers Care Wastewater Treatment Supervisor Name Role Phone Demetri Temple Primary Care Provider Encounter Details Date Type Department Care Team (Latest Contact Info) Description 2022 Travel Social History Tobacco Use Types Packs/Day Years [...] AM EDT documented as of this encounter Plan of Treatment Not on file documented as of this encounter Visit Diagnoses Not on filedocumented in this encounter Care Teams Wastewater Treatment Supervisor Relationship Specialty Start Date End Date Demetri Temple PA [address] [place] [address] PCP - General Internal Medicine 08/29/22 documented as of this encounter
--- OUTSIDE RECORDS SUMMARY | 2023-12-20 10:56 | XMS_ITS | Clinical Summary ---
Author Organization [facility] Address [address] [place] [address] Care Team Providers Care Land Sales Agent Name Role Phone Leslie Briggs SANDIE Primary Care Provider Social History Tobacco Use Types Packs/Day Years Used Date Smoking Tobacco: Never Assessed Interpersonal Safety Answer Date Record ed Physically Hurt Never 04/21/2020 Verbally Threaten Not on file 04/21/2020 Sex and Gender Information Value Date Recorded Sex Assigned at Not on file Gender Identity Not on file Sexual Orientation Not on file Plan of Treatment Health Maintenance Due Date Last Done Comments Hepatitis C Screen 1983 Hepatitis B Vaccine (1 of 3 - 19+ 3-dose series) 11/21 COVID-19 Vaccine ( season) 2023 Care Teams Land Sales Agent Relationship Specialty Start Date End Date Leslie Briggs FNP [address] [place], [place] [address] PCP - General 06/08/20
--- OUTSIDE RECORDS SUMMARY | 2023-12-20 10:56 | XMS_ITS | Encounter Summary ---
Author Organization [facility] Address [address] [place] [address] Care Team Providers Care Interpreter For The Deaf Name Role Phone Leslie Briggs SANDIE Primary Care Provider [phone] Encounter Details Date Type Department Care Team (Late st Contact Info) Description 07/02/2020 Lab Requisition [facility] Pathology & Laboratory Medicine - [address] [address] Outr Resulting Lab, Provider Social History Tobacco Use Types Packs/Day Years Used Date Smoking Tobacco: Never Assessed Interpersonal Safety Answer Date Record ed Physically Hurt Never 04/21/2020 Verbally Threaten Not on file 04/21/2020 Sex and Gender Information Value Date Recorded Sex Assigned at Not on file Gender Identity Not on file Sexual Orientation Not on file documented as of this encounter Plan of Treatment Not on file documented as of this encounter Procedures Procedure Name Priority Date/Time Associated Diagnosis Comments T3, TOTAL Routine 07/01/2020 9:00 EST documented in this encounter Results * T3, TOTAL (07/01/2020 9:00 EST) T3, Total 127 97 - 169 ng/dL 07/02/2020 18:01 EST [facility] Blood VENOUS BLOOD / Unknown 07/01/2020 9:00 EST 07/02/2020 16:48 EST Provider Outr Resulting Lab CHEMISTRY & BLOOD GAS ORDERABLES Performing Organization Address City/State/[facility] Co de Phone Number [facility] [address] [place] [address] documented in this encounter Visit Diagnoses Not on filedocumented in this encounter Care Teams Interpreter For The Deaf Relationship Specialty Start Date End Date Leslie Briggs FNP [address] [facility] [place] [address] PCP - General 06/08/20 documented as of this encounter
--- OUTSIDE RECORDS SUMMARY | 2023-12-20 10:56 | XMS_ITS | Encounter Summary ---
Author Organization [facility] Address [address] [place] [address] Care Team Providers Care Stewardesses Teacher Name Role Phone Yary Kruse NP Primary Care Provide r Leslie Briggs Primary Care Provider Encounter Details Date Type Department Care Team (Late st Contact Info) Description 12/13/2019 Lab Requisition [facility] Pathology & Laboratory Medicine - [address] [address] Outr Resulting Lab, Provider Social History Tobacco Use Types Packs/Day Years Used Date Smoking Tobacco: Never Assessed Sex and Gender Information Value Date Recorded Sex Assigned at Not on file Gender Identity Not on file Sexual Orientation Not on file documented as of this encounter Plan of Treatment Not on file documented as of this encounter Procedures Procedure Name Priority Date/Time Associated Diagnosis Comments DO NOT ORDER STANDALONE - [facility] COVID TEST Today 12/13/2019 12:54 EDT COVID-19 TESTING Routine 12/13/2019 12:5 4 EDT documented in this encounter Results * DO NOT ORDER STANDALONE - [facility] COVID TEST (12/13/2019 12:54 EDT) COVID-19 rt-PCR Result NEGATIVE Negative 12/15/2019 13:09 EDT [facility] Comment: 2019-novel Coronavirus (2019-nCoV) not detected by the qRT-PCR assay. Consider testing for other respiratory viruses or re-collecting for 2019-nCoV testing. Note: Optimum timing for peak viral levels during infections caused by 2019-nCoV have not been determined. Collection of multiple specimens from the same patient may be necessary to detect the virus. Limitations Positive results are indicative of active infection with SARS-CoV-2 but do not rule out bacterial infection or co-infection with other viruses. The agent detected may not be the definite cause of disease. In addition, detection of viral RNA may not indicate the presence of infectious virus or that SARS-CoV-2 is the causative agent for clinical symptoms. Negative results do not preclude SARS-CoV-2 infection and should not be used as the sole basis for patient management decisions. Negative results must be combined with clinical observations, patient history, and epidemiological information. False negative results may also occur if amplification inhibitors are present in the specimen or if inadequate numbers of organisms are present in the specimen. Optimum specimen types and timing for peak viral levels during infections caused by SARS-CoV-2 have not been fully determined. Collection of multiple specimens (types and time points) from the same patient may be necessary to detect the virus. The test was validated for use with upper respiratory specimens obtained via nasopharyngeal or oropharyngeal swabs in VTM, UTM, M4, M5, M6, saline, and MTM media. The performance of this test has not been established for other specimens. Specimens collected using other FDA recommended Specimen Collection Materials listed in the FDA COVID-19 Diagnostic [employer] communication (August 22, 2019) are processed with the caveat that they were not all validated for use with this test and the result must be interpreted in this context. Furthermore, a false negative results may occur if a specimen is improperly collected, transported or handled. If the virus mutates in the RT-PCR target region, SARS-CoV-2 may not be detected or may be detected less predictably. Inhibitors or other types of interference may produce a false negative result. An interference study evaluating the effect of common cold medications was not performed. This test is not FDA-cleared but its performance characteristics were established by our CLIA-certified, CAP-accredited, high complexity laboratory in accordance with CLIA regulations, College of [employer]ym[employer] Pathologists (CAP) guidelines (Aug 15, 2019), and FDA guidance (Jul 27, 2019). This test is only for use under the Food and Drug Administration's Emergency Use Authorization. Swab ENTIRE NASOPHARYNX / Unknown 12/13/2019 12:54 EDT 12/13/2019 20:33 EDT Provider Outr Resulting Lab MICROBIOLOGY - GENERAL ORDERABLES [facility] [place], [place] * COVID-19 TESTING (12/13/2019 12:54 EDT) COVID-19 rt-PCR Result NEGATIVE Negative 12/15/2019 14:33 EDT [facility] Comment: 2019-novel Coronavirus (2019-nCoV) not detected by the qRT-PCR assay. Consider testing for other respiratory viruses or re-collecting for 2019-nCoV testing. Note: Optimum timing for peak viral levels during infections caused by 2019-nCoV have not been determined. Collection of multiple specimens from the same patient may be necessary to detect the virus. Limitations Positive results are indicative of active infection with SARS-CoV-2 but do not rule out bacterial infection or co-infection with other viruses. The agent detected may not be the definite cause of disease. In addition, detection of viral RNA may not indicate the presence of infectious virus or that SARS-CoV-2 is the causative agent for clinical symptoms. Negative results do not preclude SARS-CoV-2 infection and should not be used as the sole basis for patient management decisions. Negative results must be combined with clinical observations, patient history, and epidemiological information. False negative results may also occur if amplification inhibitors are present in the specimen or if inadequate numbers of organisms are present in the specimen. Optimum specimen types and timing for peak viral levels during infections caused by SARS-CoV-2 have not been fully determined. Collection of multiple specimens (types and time points) from the same patient may be necessary to detect the virus. The test was validated for use with upper respiratory specimens obtained via nasopharyngeal or oropharyngeal swabs in VTM, UTM, M4, M5, M6, saline, and MTM media. The performance of this test has not been established for other specimens. Specimens collected using other FDA recommended Specimen Collection Materials listed in the FDA COVID-19 [employer] communication (August 22, 2019) are processed with the caveat that they were not all validated for use with this test and the result must be interpreted in this context. Furthermore, a false negative results may occur if a specimen is improperly collected, transported or handled. If the virus mutates in the RT-PCR target region, SARS-CoV-2 may not be detected or may be detected less predictably. Inhibitors or other types of interference may produce a false negative result. An interference study evaluating the effect of common cold medications was not performed. This test is not FDA-cleared but its performance characteristics were established by our CLIA-certified, CAP-accredited, high complexity laboratory in accordance with CLIA regulations, College of Cymro Pathologists (CAP) guidelines (Aug 15, 2019), and FDA guidance (Jul 27, 2019). This test is only for use under the Food and Drug Administration's Emergency Use Authorization. Performing Lab [facility] 12/15/2019 14:33 EDT [facility] Swab 12/13/2019 12:5 4 EDT 12/13/2019 20:33 EDT Provider Outr Resulting Lab MICROBIOLOGY - GENERAL ORDERABLES Performing Organization Address City/State/[facility] Co de Phone Number [facility] [address] [place] [address] [facility] [place], [place] documented in this encounter Visit Diagnoses Not on filedocumented in this encounter Care Teams Stewardesses Teacher Relationship Specialty Start Date End Date Yary Kruse, MANAGER PAYROLL [address] [place] [address] PCP - General Family Medicine - Primary Care 11/27/19 06/07/20 Leslie Briggs FNP [address] [place] [address] PCP - General 06/08/20 documented as of this encounter
--- OUTSIDE RECORDS SUMMARY | 2023-12-20 10:56 | XMS_ITS | Referral Summary ---
Author Organization [facility] Address [address] [place] [address] Care Team Providers Care Community Engagement Manager Name Role Phone Leslie Briggs COURT OFFICER Primary Care Provider [phone] Social History Tobacco Use Types Packs/Day Years Used Date Smoking Tobacco: Never Assessed Interpersonal Safety Answer Date Record ed Physically Hurt Never 04/21/2020 Verbally Threaten Not on file 04/21/2020 Sex and Gender Information Value Date Recorded Sex Assigned at Not on file Gender Identity Not on file Sexual Orientation Not on file Plan of Treatment Not on file Care Teams Community Engagement Manager Relationship Specialty Start Date End Date Leslie Briggs FNP [address] [place], [place] [address] PCP - General 06/08/20
--- OUTSIDE RECORDS SUMMARY | 2023-12-20 10:56 | XMS_ITS | Encounter Summary ---
Author Organization [facility] Address [address] [place] [address] Care Team Providers Care Bar Host/Hostess Name Role Phone Yary Kruse NP Primary Care Provide r Leslie Briggs Primary Care Provider Encounter Details Date Type Department Care Team (Late st Contact Info) Description 06/04/2020 Lab Requisition [facility] Pathology & Laboratory Medicine - [facility] [address] [place] [address] Outr Resulting Lab, Provider Social History Tobacco [...] Procedure Name Priority Date/Time Associated Diagnosis Comments ZZCOVID-19 TEST [facility] PCR Today 06/04/2020 8:52 EST COVID-19 TESTING Routine 06/04/2020 8:52 EST documented in this encounter Results * COVID-19 TEST [facility] PCR (06/04/2020 8:52 EST) Swab ENTIRE NASOPHARYNX / Unknown 06/04/2020 8:52 EST 06/04/2020 15:35 EST Provider Outr Resulting Lab MICROBIOLOGY - GENERAL ORDERABLES Performing Organization Address City/[facility] Co de Phone Number [facility] [address] [place] [address] * COVID-19 TESTING (06/04/2020 8:52 EST) COVID-19 rt-PCR Result Negative Negative 06/05/2020 14:35 EST [facility] Comment: Negative results do not preclude 2019-nCoV infection and should not be used as the sole basis for treatment or other patient management decisions. Negative results must be combined with clinical observations, patient history, and epidemiological information. This test was developed and its performance characteristics determined by [facility]. It has not been cleared or approved by the US Food and Drug Administration. FDA does not require this test to go through premarket FDA review. This test is used for clinical purposes. It should not be regarded as investigational or for research. This laboratory is certified under the Clinical Laboratory Improvement Amendments (CLIA) as qualified to perform high complexity clinical laboratory testing. This test is based on the [facility] COVID-19 Emergency Use Authorization (EUA) assay, with minor modification as defined by the FDA Performed on the OSSIANIX 7 Flex. Performing Lab [facility] 06/05/2020 14:35 EST [facility] Swab 06/04/2020 8:52 EST 06/04/2020 15:35 EST Provider Outr Resulting Lab MICROBIOLOGY - GENERAL ORDERABLES Performing Organization Address City/[facility]/ZIP Co de Phone Number [facility] [address] [place] [address] documented in this encounter Visit Diagnoses Not on filedocumented in this encounter Care Teams Bar Host/Hostess Relationship Specialty Start Date End Date Yary Kruse, COFFEE ROASTER HELPER [address] [place] [address] PCP - General Family Medicine - Primary Care 11/27/19 06/07/20 Leslie Briggs FNP [address] [place] [address] PCP - General 06/08/20 documented as of this encounter
--- OUTSIDE RECORDS SUMMARY | 2023-12-20 10:56 | XMS_ITS | Encounter Summary ---
Author Organization [facility] Address [address] [place] [address] Care Team Providers Care Industrial Spray Painter Name Role Phone Yary Kruse NP Primary Care Provide r Leslie Briggs Primary Care Provider Encounter Details Date Type Department Care Team (Late st Contact Info) Description 05/11/2020 Lab Requisition [facility] Pathology & Laboratory Medicine - [address] [address] Outr Resulting Lab, Provider Social History Tobacco [...] Procedure Name Priority Date/Time Associated Diagnosis Comments FECAL BACTERIAL PATHOGENS BY PCR Routine 05/11/2020 12:41 EST documented in this encounter Results * FECAL BACTERIAL PATHOGENS BY PCR (05/11/2020 12:41 EST) Salmonella PCR Negative Negative 05/12/2020 11:27 EST [facility] Shigella/Enteroin vasive E. coli Negative Negative 05/12/2020 11:27 EST [facility] HN LAB CAMPYLOBACTER PCR Negative Negative 05/12/2020 11:27 EST [facility] Shiga Toxin PCR Negative Negative 0 11:27 EST [facility] Feces SPECIMEN FROM RECTUM / Unknown 05/11/2020 12:41 EST 05/11/2020 21:06 EST Provider Outr Resulting Lab MICROBIOLOGY - GENERAL ORDERABLES Performing Organization Address City/State/[facility] Co de Phone Number [facility] [address] [place] [address] documented in this encounter Visit Diagnoses Not on filedocumented in this encounter Care Teams Industrial Spray Painter Relationship Specialty Start Date End Date Yary Kruse, HOT METAL MIXER OPERATOR HELPER [address] [place] [address] PCP - General Family Medicine - Primary Care 11/27/19 06/07/20 Leslie Briggs FNP [address] [place] [address] PCP - General 06/08/20 documented as of this encounter
--- OUTSIDE RECORDS SUMMARY | 2023-12-20 10:56 | XMS_ITS | Encounter Summary ---
Author Organization [facility] Address [address] [place] [address] Care Team Providers Care Dope Weigh Operator Name Role Phone Yary Kruse NP Primary Care Provide r Leslie Briggs Primary Care Provider [phone] Encounter Details Date Type Department Care Team (Late st Contact Info) Description 12/07/2019 Lab Requisition [facility] Pathology & Laboratory Medicine - [address] [address] Outr Resulting Lab, Provider Social History Tobacco [...] ORDER STANDALONE - [facility] COVID TEST Today 12/06/2019 14:26 EDT COVID-19 TESTING Routine 12/06/2019 14:2 6 EDT documented in this encounter Results * DO NOT ORDER STANDALONE - [facility] COVID TEST (12/06/2019 14:26 EDT) COVID-19 rt-PCR Result NEGATIVE Negative 12/09/2019 13:54 EDT [facility] Comment: 2019-novel Coronavirus (2019-nCoV) not [...] in accordance with CLIA regulations, College of [employer] Pathologists (CAP) guidelines (Aug 15, 2019), and FDA guidance (Jul 27, 2019). This test is only for use under the Food and Drug Administration's Emergency Use Authorization. Swab ENTIRE NASOPHARYNX / Unknown 12/06/2019 14:26 EDT 12/07/2019 22:43 EDT Provider Outr Resulting Lab MICROBIOLOGY - GENERAL ORDERABLES [facility] [place], [place] * COVID-19 TESTING (12/06/2019 14:26 EDT) COVID-19 rt-PCR Result NEGATIVE Negative 12/09/2019 14:40 EDT [facility] Comment: 2019-novel Coronavirus (2019-nCoV) not detected [...] in accordance with CLIA regulations, College of [employer] Pathologists (CAP) guidelines (Aug 15, 2019), and FDA guidance (Jul 27, 2019). This test is only for use under the Food and Drug Administration's Emergency Use Authorization. Performing Lab [facility] [employer] 12/09/2019 14:40 EDT [facility] Swab 12/06/2019 14:2 6 EDT 12/07/2019 22:43 EDT Provider Outr Resulting Lab MICROBIOLOGY - GENERAL ORDERABLES Performing Organization Address City/State/[facility] Co de Phone Number [facility] [address] [place] [address] [facility] [place], [place] documented in this encounter Visit Diagnoses Not on filedocumented in this encounter Additional Health Concerns Infection Onset Date Last Indicated Resolved Time R/O COVID-19 12/06/2019 12/06/2019 12/12/2019 22:1 7 EDT documented as of this encounter Care Teams Dope Weigh Operator Relationship Specialty Start Date End Date Yary Kruse, PRODUCT SAFETY EXPERT [address] [place] [address] PCP - General Family Medicine - Primary Care 11/27/19 06/07/20 Leslie Briggs FNP [address] [place], [place] [address] PCP - General 06/08/20 documented as of this encounter
--- OUTSIDE RECORDS SUMMARY | 2023-12-20 10:56 | XMS_ITS | Encounter Summary ---
[place] [address] Care Team Providers Care Data Officer Name Role Phone Demetri Temple Primary Care Provider [phone] Encounter Details Date Type Department Care Team (Latest Contact Info) Description 12/30/2022 Travel Social History Tobacco Use Types Packs/Day [...] on filedocumented in this encounter Care Teams Data Officer Relationship Specialty Start Date End Date Demetri Temple PA [address] [place] [address] PCP - General Internal Medicine 08/29/22 documented as of this encounter
--- OUTSIDE RECORDS SUMMARY | 2023-12-20 10:56 | XMS_ITS | Encounter Summary ---
Author Organization [facility] Address [address] [place] [address] Care Team Providers Care Wastewater Engineer Name Role Phone Yary Kruse INDUSTRIAL PLANT CUSTODIAN Primary Care Provide r Leslie Briggs Primary Care Provider [phone] Encounter Details Date Type Department Care Team (Late st Contact Info) Description 12/09/2019 Lab Requisition [facility] Pathology & Laboratory Medicine - [address] [address] Yvonne Ashraf, DO [address] [place] [address] Encounter for other general examination Social History Tobacco Use Types Packs/Day Years Used Date Smoking Tobacco: Never Assessed Sex and Gender Information Value Date Recorded Sex Assigned at Not on file Gender Identity Not on file Sexual Orientation Not on file documented as of this encounter Plan of Treatment Not on file documented as of this encounter Procedures Procedure Name Priority Date/Time Associated Diagnosis Comments SURGICAL PATHOLOGY Today 12/09/2019 10 :43 EDT Encounter for other general examination documented in this encounter Results * SURGICAL PATHOLOGY (12/09/2019 10:43 EDT) Final Diagnosis A. DUODENUM, BULB, BIOPSY: - Duodenal mucosa with no significant diagnostic abnormality. B. STOMACH, ANTRUM, BIOPSY: - Gastric antral mucosa with mild reactive (chemical) gastropathy. - Negative for Helicobacter pylori microorganisms on H&E stained sections. C. STOMACH, GREATER CURVATURE, BIOPSY: - Gastric fundic mucosa with no significant diagnostic abnormality. - Negative for Helicobacter pylori microorganisms on H&E stained sections. D. ESOPHAGUS, GE JUNCTION, BIOPSY: - Gastric cardia-type mucosa with focal foveolar hyperplasia. - Negative for intestinal metaplasia and dysplasia. E. ESOPHAGUS, DISTAL, BIOPSY: - Consistent with reflux esophagitis. 12/10/2019 16:26 [facility] at 1626 Attestation By the signature below, the attending physician certifies that they have 1) personally conducted a gross and/or microscopic examination of the described specimen(s), and/or personally interpreted the results of laboratory testing of the described specimen(s), and 2) personally rendered or confirmed the above diagnosis. 12/10/2019 16:26 [facility] at 1626 Clinical History Hernia, vomiting 12/10/2019 16:26 [facility] Gross Description A. Received in formalin labelled with proper patient identification (initials L, A) and Bx duodenal bulb is a brumfield irregular tissue, 0.3 x 0.2 x 0.2 cm. Entirely submitted in A1. B. Received in formalin labelled with proper patient identification (initials L, A) and Bx gastric antrum is a brumfield irregular tissue, 0.3 x 0.2 x 0.2 cm. Entirely submitted in B1. C. Received in formalin labelled with proper patient identification (initials L, A) and Bx greater curve is a brumfield irregular tissue, 0.4 x 0.2 x 0.2 cm. Entirely submitted in C1. D. Received in formalin labelled with proper patient identification (initials L, A) and Bx GE junction is a brumfield-smith irregular tissue, 0.3 x 0.2 x 0.1 cm. Entirely submitted in D1. E. Received in formalin labelled with proper patient identification (initials L, A) and Bx distal esophagus is a brumfield-smith membranous tissue, 0.3 x 0.2 x 0.1 cm. Entirely submitted in E1. Montserrat Wang 12/10/2019 16:26 [facility] Scanned Images 12/10/2019 16:26 EDT [facility] Tissue ENTIRE ESOPHAGUS / Unknown 12/09/2019 10:43 EDT 12/09/2019 17:56 EDT Tissue specimen (specimen) STOMACH STRUCTURE / Unknown 12/09/2019 10:43 EDT 12/09/2019 17:56 EDT Tissue specimen (specimen) STOMACH STRUCTURE / Unknown 12/09/2019 10:43 EDT 12/09/2019 17:56 EDT Tissue specimen (specimen) ESOPHAGEAL STRUCTURE / Unknown 12/09/2019 10:43 EDT 12/09/2019 17:56 EDT Tissue specimen (specimen) ESOPHAGEAL STRUCTURE / Unknown 12/09/2019 10:43 EDT 12/09/2019 17:56 EDT Yvonne Ashraf DO PATHOLOGY ORDERABLES [facility] [address] [place] [address] documented in this encounter Visit Diagnoses Diagnosis Encounter for other general examination documented in this encounter Additional Health Concerns Infection Onset Date Last Indicated Resolved Time R/O COVID-19 12/06/2019 12/06/2019 12/12/2019 22:1 7 EDT documented as of this encounter Care Teams Wastewater Engineer Relationship Specialty Start Date End Date Yary Kruse, INDUSTRIAL PLANT CUSTODIAN [address] [place] [address] PCP - General Family Medicine - Primary Care 11/27/19 06/07/20 Leslie Briggs FNP [address] [place] [address] PCP - General 06/08/20 documented as of this encounter
--- OUTSIDE RECORDS SUMMARY | 2023-12-20 10:56 | XMS_ITS | Encounter Summary ---
Author Organization [facility] Address [address] [place] [address] Care Team Providers Care Electrical Systems Design Engineer Name Role Phone Leslie Briggs SANDIE Primary Care Provider [phone] Encounter Details Date Type Department Care Team (Late st Contact Info) Description 06/08/2020 Lab Requisition [facility] Pathology & Laboratory Medicine - [address] [address] Adelaida Villegas MD [address] [place] [address] [address] [place], [place] [id number] Encounter for other general examination Social History [...] Date/Time Associated Diagnosis Comments SURGICAL PATHOLOGY Today 06/08/2020 13 :26 EST Encounter for other general examination documented in this encounter Results * SURGICAL PATHOLOGY (06/08/2020 13:26 EST) Final Diagnosis A. COLON, DESCENDING, POLYP, BIOPSY: - Fragments of tubular adenoma. B. RECTUM, POLYP, BIOPSY: - Hyperplastic polyp. 06/10/2020 17:51 EST [facility] Attestation By the signature below, the attending physician certifies that they have 1) personally conducted a gross and/or microscopic examination of the described specimen(s), and/or personally interpreted the results of laboratory testing of the described specimen(s), and 2) personally rendered or confirmed the above diagnosis. 06/10/2020 17:51 [facility] at 1751 Clinical History Abdominal pain 06/10/2020 17:51 [facility] Gross Description A. Received in formalin labelled with proper patient identification (initials L, A) and descending colon polyp are three brumfield tissues (0.5 x 0.2 x 0.2 cm to 0.2 x 0.1 by less than 0.1 cm). Entirely submitted in A1. B. Received in formalin labelled with proper patient identification (initials L, A) and rectal polyp is a single brumfield focally brown speckled tissue (0.3 x 0.2 x 0.2 cm). Submitted intact in B1. Lex Wilkins 06/09/2020 8:25 06/10/2020 17:51 [facility] Performing Lab [facility] 06/10/2020 17:51 [facility] Scanned Images 06/10/2020 17:51 [facility] Tissue SPECIMEN FROM RECTUM / Unknown 06/08/2020 13:26 EST 06/08/2020 23:05 EST Tissue specimen (specimen) SPECIMEN FROM RECTUM / Unknown 06/08/2020 13:26 EST 06/08/2020 23:05 EST Adelaida Villegas MD PATHOLOGY ORDERA BLES [facility] [address] [place] [address] documented in this encounter Visit Diagnoses Diagnosis Encounter for other general examination documented in this encounter Care Teams Electrical Systems Design Engineer Relationship Specialty Start Date End Date Leslie [place] [address] PCP - General 06/08/20 documented as of this encounter
--- OUTSIDE RECORDS SUMMARY | 2023-12-20 10:56 | XMS_ITS | Encounter Summary ---
Author Organization [facility] Address [facility] [place] [address] Care Team Providers Care Junior Underwriter Name Role Phone Demetri Temple Primary Care Provider [phone] Reason for Visit * Reason Comments Follow-up NXR US EVAL COMBO VISIT IN 3D WITH DR NEREYDA VALIENTE COMP INJURY 03/10/2021 left ulnar neuropathy and and wrist pain past history ulnar nerve, median nerve, radial nerve and carpal tunnel acting up with failed OT, failed surgical procedures x2 and failed injections in pain and spine. Encounter Details Date Type Department Care Team (Late st Contact Info) Description 12/30/2022 9:00 AM EDT Office [place] [address] Bob Obregon MD [facility] [place] [address] Ulnar neuropathy at elbow of left upper extremity Social History Tobacco Use Types Packs/Day Years [...] AM EDT documented as of this encounter Last Filed Vital Signs Vital Sign Reading Time Taken Comments Blood Pressure - - Pulse - - Temperature - - Respiratory Rate - - Oxygen Saturation - - Inhaled Oxygen Concentration - - Weight 63.5 kg (140 lb) 12/30/2022 8:59 AM EDT Height 177.8 cm (5' 10) 12/30/2022 8:59 AM EDT Body Mass Index 20.09 12/30/2022 8:59 AM EDT documented in this encounter Progress Notes * Bob Obregon MD - 12/30/2022 9:00 AM EDT Orthopaedic Clinic Progress Note DATE OF VISIT: 12/30/22 CHIEF COMPLAINT: Chief Complaint Patient presents with Follow-up NXR US EVAL COMBO VISIT IN 3D WITH DR DAWN WORK COMP INJURY 03/10/2021 left ulnar neuropathy and and wrist pain past history ulnar nerve, median nerve, radial nerve and carpal tunnel acting up with failed OT, failed surgical procedures x2 and failed injections in pain and spine. HPI: Dallas Scruggs is a 37 y.o. male patient who presents to the orthopaedic clinic for a follow-up appointment. My prior history: Followed for LUE nerve dysfunction and symptoms despite prior surgeries. Has had multiple opinions and prior surgery ([place] - carpal tunnel release, cubital tunnel release, medial epicondylectomy) About 3 years ago, began feeling pain and numbness throughout ulnar digits, then progressed to all fingers. Endorses pain in lateral elbow as well. 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 Prior Surgery: 2020, [place], cubital tunnel release. Then Revision with Dr. Taylor with medial epicondylectomy. Since seeing my in 02/2021, he had an EMG/NCS with ?residual Left ulnar nerve symptoms He was then seen by Dr Ferraro, who recommended MRI Then DR. Taylor fat grafting. Does not believe any relief after surgery, in fact getting worse. Pain management, discussed not a good candidate for nerve blocks. Taking methadone currently with some relief. Gabapentin and Suboxone did not help, tried voltaren gel, creams, with no relief. Today's additions: MRI after elbow surgery: outside center per report normal position and appearance of nerve and medial epicondyle. Prior EMG after surgery with ?residual LUE ulnar neuropathy. He has increased his methadone recently due to LUE pain. No other medication: unable to take NSAIDsdue to GERD, has tried previously tylenol, gabapentin, states no relief. He again states he can feel his nerve, feel it moving, snapping, with extreme sensitivity. 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 He confirms in his words never got better after surgery, only worse after surgery. MEDICATIONS: Current Outpatient Medications: methadone (Dolophine) 10 mg tablet, Take 40 mg by mouth daily., Disp: , Rfl: clonazePAM (KlonoPIN) 0.5 mg tablet, TAKE ONE TABLET BY MOUTH TWICE A DAY NEEDED ANXIETY, Disp: , Rfl: Emgality Pen 120 mg/mL Pen Injector, INJECT THE CONTENTS OF 1 SYRINGE (120MG) UNDER THE SKIN ONCE MONTHLY, Disp: , Rfl: rizatriptan (MAXALT) 10 mg Tablet, Take 10 mg by mouth as needed., Disp: , Rfl: ALLERGIES: Allergies Allergen Reactions Sulfa (Sulfonamide Antibiotics) Hives PHYSICAL EXAM: Temp: -- Heart Rate: -- BP: -- Body mass index is 20.09 kg/m??. No acute distress Affect within normal limits for age Alert and oriented Speech clear and intact, appropriate for age Head atraumatic Respirations unlabored Brisk capillary refill peripheral bilateral upper extremities, warm and well perfused Left upper extremity examined once again: Sensation he states diminished dorsal ulnar hand and ulnar digits He also endorses abnormal feeling and pain in other digits but less so 4 out of 5 DI O Pain with resisted elbow flexion extension Palpable ulnar nerve at elbow perched on top of the medial epicondyle site. During ultrasound exam it is noted to subluxate from anterior to posterior though it seems to rest anteriorly now. Severe pain and hypersensitivity at the site at the medial epicondyle as well as 4 to 5 cm proximalover the septum. IMAGING: No new imaging today. ASSESSMENT and PLAN: This is a 37 y.o. male seen in follow-up for continuing left upper extremity diffuse pain numbness tingling, nerve compression type symptoms despite 2 prior surgeries at the ulnar nerve at the elbow and a carpal tunnel release, including fat grafting. I discussed with him again the findings, including ultrasound dynamic testing with Dr. Dawn today confirming subluxation as well as nerve position and sites of pain. There is abnormal morphology of the ulnar nerve as well at the sites around the elbow. No mervin swelling or obvious compression on ultrasound at the wrist though somewhat equivocal in terms of evidence. I discussed with him risks and benefits of surgery. I did recommend focusing on the clear problem of his ulnar nerve subluxation. Do not feel this dynamic mechanical problem would improve with rest time physical therapy or splinting. He has tried multiple nonoperative modalities. I did emphasize some risks of the third surgery as well as a larger surgery with transposition. We also discussed that he has diffuse left upper extremity symptoms and not all of the symptoms mayimprove with this. We also reviewed a lengthy time of improvement. Do not see indication at this time for AIN nerve transfer, a future possibility but at this time recommend at least addressing the pain generator and also given his mixed response to previous surgeries recommended the smaller procedure before the additional. However AIN nerve transfer at the time of revision cubital tunnel does remain an option given the extent of his symptoms and weakness. We can continue this discussion. I encouraged him to think about the options about a third surgery at least over the weekend if not longer. All questions were answered. He knows how to reach out to us with any questions. PLAN: - Recommend Revision Left cubital tunnel release ulnar neurolysis with transposition (likely transmuscular/submuscular). Discussed 2 weeks post op in plaster splint, then possible wrist splint. Can discuss again AIN nerve transfer at the time of surgery versus potential staging if indicated. All questions were answered, and the patient/family were satisfied with the discussion. They know to call sooner with any questions or concerns. Follow-up: He will consider his options and call if he would like surgery. Bob Obregon MD, MPH Department of Orthopaedic Surgery Pediatric Orthopaedic & Hand Surgeon documented in this encounter Plan of Treatment Not on file documented as of this encounter Visit Diagnoses Diagnosis Ulnar neuropathy at elbow of left upper extremity documented in this encounter Care Teams Junior Underwriter Relationship Specialty Start Date End Date Demetri Temple PA [address] [place] [address] PCP - General Internal Medicine 4/3/23 documented as of this encounter
--- OUTSIDE RECORDS SUMMARY | 2023-12-20 10:56 | XMS_ITS | Clinical Summary ---
Author Organization [facility] Address [facility] [place] [address] Care Team Providers Care Test Grader Name Role Phone Demetri Temple Primary Care Provider [phone] Allergies Active Allergy Reactions Criticality Noted Date Comments Sulfa (Sulfonamide Antibiotics) Hives Medium 06/29 Medications Medication Sig Dispensed Refills Start Date End Date Status rizatriptan (MAXALT) 10 mg Tablet Take 10 mg by mouth as needed. 11/28/2019 Active Emgality Pen 120 mg/mL Pen Injector INJECT THE CONTENTS OF 1 SYRINGE (120MG) UNDER THE SKIN ONCE MONTHLY 04/04/2022 Active methadone (Dolophine) 10 mg tablet Take 40 mg by mouth daily. 07/22/2022 Active clonazePAM (KlonoPIN) 0.5 mg tablet TAKE ONE TABLET BY MOUTH TWICE A DAY NEEDED ANXIETY 08/16/2022 Active Active Problems Problem Noted Date Diagnosed Date Ulnar neuropathy at elbow of left upper extremit y 09/27/2022 Family History Medical History Relation Comments Connective Tissue Disease Paternal Grandfather Relation Status Comments Paternal Grandfather Social History Tobacco Use Types Packs/Day Years Used Date Smoking Tobacco: Former Cigarettes Q uit: 03/10/2015 Smokeless Tobacco: Never Tobacco Cessation:Counseling Given: Not Answered Alcohol Use Standard Drinks/Week Comments Not Currently 0 (1 standard drink = 0.6 oz pur e alcohol) 1-2 drinks a year Sex and Gender Information Value Date Recorded Sex Assigned at Male 03/18/2021 10:29 AM EDT Gender Identity Male 03/18/2021 10:29 AM EDT Sexual Orientation Straight 03/18/2021 10 :29 AM EDT Last Filed Vital Signs Vital Sign Reading Time Taken Comments Blood Pressure 125/70 09/28/2022 10:07 AM EDT Pulse 66 09/28/2022 10:07 AM EDT Temperature 37.4 ??C (99.3 ??F) 10/08/2021 5:33 PM ED T Respiratory Rate 11 10/08/2021 6:30 PM EDT Oxygen Saturation 100% 09/28/2022 10:07 AM EDT Inhaled Oxygen Concentration - - Weight 63.5 kg (140 lb) 12/30/2022 8:59 AM EDT Height 177.8 cm (5' 10) 12/30/2022 8:59 AM EDT Body Mass Index 20.09 12/30/2022 8:59 AM EDT Plan of Treatment Health Maintenance Due Date Last Done Comments HIV screen 11/21/2001 Hepatitis C Screening 11/21/2001 Lipid Screening 11/21/2001 Hepatitis B vaccine (0-59 yrs) (1) 11/21/2002 Tdap adult 11/21/2002 Tetanus vaccine 11/21/2002 Covid-19 Vaccine ( season) 2023 Influenza (Flu) vaccine (1 o f 1 - Influenza standard series) 01/28/2024 Care Teams Test Grader Relationship Specialty Start Date End Date Demetri Temple PA [address] [place] [address] PCP - General Internal Medicine 08/29/22
--- OUTSIDE RECORDS SUMMARY | 2023-12-20 10:56 | XMS_ITS | Encounter Summary ---
Author Organization [facility] Address [address] [place] [address] Care Team Providers Care Greenhouse Staff Name Role Phone Leslie Briggs SANDIE Primary Care Provider [phone] Encounter Details Date Type Department Care Team (Late st Contact Info) Description 07/10/2020 Lab Requisition [facility] Pathology & Laboratory Medicine - [address] [address] Outr Resulting Lab, Provider Social History Tobacco [...] Comments ZZCOVID-19 TEST [facility] PCR Today 07/10/2020 8:48 EST COVID-19 TESTING Routine 07/10/2020 8:48 EST documented in this encounter Results * COVID-19 TEST [facility] PCR (07/10/2020 8:48 EST) Swab ENTIRE NASOPHARYNX / Unknown 07/10/2020 8:48 EST 07/10/2020 16:13 EST Provider Outr Resulting Lab MICROBIOLOGY - GENERAL ORDERABLES [facility] [address] [place] [address] * COVID-19 TESTING (07/10/2020 8:48 EST) COVID-19 rt-PCR Result Negative Negative 07/11/2020 17:00 EST [facility] Comment: This test was developed and its performance characteristics determined by [facility]. It has not been cleared or approved [...] testing. This test is based on the [facility] COVID-19 Emergency Use Authorization (EUA) assay, with minor modification as defined by the FDA Performed on the clypd 7 Pro RT-PCR System. This test has not been FDA cleared or approved. This test has been authorized by FDA under an EUA for use by authorized laboratories. This test has been authorized only for detection of nucleic acid from 2019-nCoV, not for any other viruses or pathogens. This test is only authorized for the duration of the declaration that circumstances exist justifying the authorization of emergency use of in vitro diagnostic tests for detection and/or diagnosis of 2019-nCoV under section 564(b)(1) of Act, 21 U.S.C ?? 360bbb-3(b) (1), unless the authorization is terminated or revoked sooner. Negative results do not preclude 2019-nCoV infection and should not be used as the sole basis for treatment or other patient management decisions. Negative results must be combined with clinical observations, patient history, and epidemiological information. Performing Lab [facility] 07/11/2020 17:00 EST [facility] Swab 07/10/2020 8:48 EST 07/10/2020 16:13 EST Provider Outr Resulting Lab MICROBIOLOGY - GENERAL ORDERABLES [facility] [address] [place] [address] documented in this encounter Visit Diagnoses Not on filedocumented in this encounter Care Teams Greenhouse Staff Relationship Specialty Start Date End Date Leslie Briggs FNP [address] [facility] [place] [address] PCP - General 06/08/20 documented as of this encounter
--- OUTSIDE RECORDS SUMMARY | 2023-12-20 10:57 | XMS_ITS | Encounter Summary ---
Author Organization [facility] Address [facility] [place] [address] Care Team Providers Care Scrap Baler Name Role Phone Leslie Briggs APRN Primary Care Provider [phone] Encounter Details Date Type Department Care Team (Late st Contact Info) Description 04/15/2022 10:15 AM EST Office Visit [place] [address] Yousif Bentley MD [facility] [place] [address] Lesion of left ulnar nerve Social History Tobacco Use Types Packs/Day Years [...] as of this encounter Progress Notes * Yousif Bentley MD - 04/15/2022 10:15 AM EST Plastic Surgery Follow Up Note Provider: Yousif Bentley M.D. Date of Surgery: 10/08/21 Procedure(s): left carpal and cubital tunnel, medial epicondylectomy, fat grafting Complications: None Reported HPI: Patient returns to clinic for a follow up visit and to discuss the results to his most recent EMG. He states that his pain is extreme and has been experiencing shock like sensations and has seen lack of improvement. Prior surgery did not work for him- he has started working with OT but hasn't seenmuch improvement. Still complains of ring and small finger paraesthesia. With certain motions this increases his discomfort. He has been taking gabapentin for his pain but sees no improvement. Driving also causes discomfort. Examination: Patient is alert, conversant, comfortable, ambulating Left upper extremity Incision well healed Full ROM Decrease sensation ring and small fingers And median distrubution not as bad. Right upper extremity + tinels at the elbow + tinels at the wrist 5/5 abduction of thumb 4/5 abduction of fingers 4/5 FDP ring and little 4/5 FCU flexion at the left wrist EMG: Impression: Dallas Scruggs is a 36 y.o. male who was seen today for follow-up. Seeing no benefit frompast surgery therefore, I would not recommend proceeding with additional surgery or revision. May consider proceeding with elevating the muscle in the elbow but will re discuss this at next follow up visit. Plan: Follow up 3 months IConnie, have performed the documentation for this encounter in the presence of and acting as a scribe for YOUSIF BENTLEY MD. documented in this encounter Plan of Treatment Not on file documented as of this encounter Visit Diagnoses Diagnosis Lesion of left ulnar nerve Lesion of ulnar nerve documented in this encounter Care Teams Scrap Baler Relationship Specialty Start Date End Date Leslie Briggs, MART [address] [place] [address] PCP - General Family Medicine 05/11/21 08/28/22 documented as of this encounter
--- OUTSIDE RECORDS SUMMARY | 2023-12-20 10:57 | XMS_ITS | Encounter Summary ---
Author Organization [facility] Address [facility] [place] [address] Care Team Providers Care Building Estimator Name Role Phone ChesterLeslie MART Primary Care Provider [phone] Reason for Referral * Physical Therapy (Routine) - Closed Specialty Diagnoses / Procedures Referred By Berenice t Referred To Contact Diagnoses Lesion of left ulnar nerve Stella Bran APRN [facility] [place] [address] Unknown None Referral ID Status Reason Start Date Expiration Date V isits Requested Visits Authorized [id number] Closed Evaluate and Treat 10/26/2021 04/24/2022 12 12 Encounter Details Date Type Department Care Team (Late st Contact Info) Description 10/26/2021 Orders [place] [address] Stella Bran APRN [facility] [place] [address] Lesion of left ulnar nerve Social History [...] as of this encounter Plan of Treatment Scheduled Referrals Name Type Priority Associated Diagnoses Orde r Schedule Referral to Physical Therapy Outpatient Referral Routine Lesion of left ulnar nerve Ordered: 10/26/2021 documented as of this encounter Visit Diagnoses Diagnosis Lesion of left ulnar nerve Lesion of ulnar nerve documented in this encounter Care Teams Building Estimator Relationship Specialty Start Date End Date Leslie Briggs, POLICE SPECIALIST [address] [place] [address] PCP - General Family Medicine 05/11/21 08/28/22 documented as of this encounter
--- OUTSIDE RECORDS SUMMARY | 2023-12-20 10:57 | XMS_ITS | Encounter Summary ---
Author Organization [facility] [place] [address] Care Team Providers Care Wheel Fitter Name Role Phone Demetri Temple Primary Care Provider [phone] Reason for Referral * Consultation (Routine) - Closed Specialty Diagnoses / Procedures Referred By Contac t Referred To Contact [facility] Diagnoses Cubital tunnel syndrome, unspecified laterality Jaja Alatorre MD [facility] [address] [place] [address] [facility] Pain Management [address] [place] [phone] Referral ID Status Reason Start Date Expiration Date V isits Requested Visits Authorized [id number] Closed Consult, Test & Treat 03/10/2021 03/10/2022 1 1 Reason for Visit * Reason Comments Follow-up Left Recurrent Cubit al tunnel wrist pain * Consultation (Routine) - Closed Specialty Diagnoses / Procedures Referred By Contac t Referred To Contact Orthopaedics Diagnoses Cubital tunnel syndrome RECURRENT CUBITAL TUNNEL Ken Andrade MD [address] [place] [address] [facility] [address] [place] [phone] Referral ID Status Reason Start Date Expiration Date V isits Requested Visits Authorized [id number] Closed Consult, Test & Treat [facility] PCP Updated and/or Approved 02/16/2021 02/16/2022 6 6 Encounter Details Date Type Department Care Team (Late st Contact Info) Description 03/10/2021 11:00 AM EDT Office [place] [address] Bob Obregon MD [facility] [address] [place] [address] Cubital tunnel syndrome, unspecified laterality Social History Tobacco Use Types Packs/Day Years Used Date Smoking Tobacco: Former Cigarettes Q uit: 03/10/2015 Smokeless Tobacco: Never Alcohol Use Standard Drinks/Week Comments Never 0 (1 standard drink = 0.6 oz pur e alcohol) Sex and Gender Information Value Date Recorded Sex Assigned at Male 03/18/2021 10:29 AM EDT Gender Identity Male 03/18/2021 10:29 AM EDT Sexual Orientation Straight 03/18/2021 10 :29 AM EDT documented as of this encounter Last Filed Vital Signs Vital Sign Reading Time Taken Comments Blood Pressure 120/80 03/10/2021 11:01 AM EDT Pulse 73 03/10/2021 11:01 AM EDT Temperature 37.2 ??C (99 ??F) 03/10/2021 11:01 AM EDT Respiratory Rate - - Oxygen Saturation - - Inhaled Oxygen Concentration - - Weight 58.1 kg (128 lb) 03/10/2021 11:01 AM EDT Height 177.8 cm (5' 10) 03/10/2021 11:01 AM EDT Body Mass Index 18.37 03/10/2021 11:01 AM EDT documented in this encounter Progress Notes * Jaja Alatorre MD - 03/10/2021 11:00 AM EDT ORTHOPAEDIC SURGERY CLINIC NEW PATIENT EVALUATION DATE OF VISIT: 03/10/21 Chief complaint: Chief Complaint Patient presents with ??? Follow-up Left Recurrent Cubital tunnel wrist pain Date of Injury: surgery last June 2020 (Dr. Andrade) History of present illness: Dallas Scruggs is a 35 y.o. year-old male who was referred to clinic today for evaluation of left recurrent cubital tunnel pain. Patient has history of surgery 06/[address] Andrade for endoscopic carpal tunnel syndrome and cubital tunnel syndrome. EMG was done preoperatively which suggested cubital tunnel syndrome at elbow and carpal tunnel, reportedly, although cannot see the EMG report today. After surgery, patient had vast improvement in symptoms after surgery for 1 month in June. Patient had tingling sensation in small and ring fingers disappear after the surgery. Ulnar nerve was released in Jun but no transposition was performed. He did do OT and scar massage he states after surge ry. Patient is on suboxone, Klonopin daily, migraine medications. At this time, his worst complaint is pain and tightness in his left arm and elbow. States daily he uses a stress ball. Past Medical history: There are no problems to display for this patient. History of blood clots or bleeding disorders: none Medications: No current outpatient medications on file. Allergies: Allergies Allergen Reactions ??? Sulfa (Sulfonamide Antibiotics) Hives Social history: Social History Tobacco Use ??? Smoking status: Not on file ??? Smokeless tobacco: Not on file Substance Use Topics ??? 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 No flowsheet data found. No flowsheet data found. Vital signs: Temp: -- Heart Rate: -- BP: -- There is no height or weight on file to calculate BMI. Physical Exam: No acute distress Affect within normal limits for age Alert and oriented Speech clear and intact, appropriate for age Head atraumatic Respirations unlabored Brisk capillary refill peripheral bilateral upper extremities, warm and well perfused LEFT UPPER EXTREMITY Extremity covered in tattoo sleeve. Well healed surgical scar over medial epicondyle. Full elbow ROM in flex/extension Elbow feels stable to varus/valgus stress TTP about the soft spot Large medial epicondylar prominence Negative Tinel's in Guyon's canal Positive Tinel's in cubital tunnel with numbness/tingling reproduced in small and ring fingers Negative dilia's Equivocal phalen's test 2 point discrimination: 6mm or less in all digits 5/5 JUAN and FDP to small finger Imaging: No imaging at today's visit CTS-6 Evaluation Tool Symptoms and History: [] (3.5) 1. Numbness predominantly or exclusively in the median nerve distribution [] (4) 2. Nocturnal numbness Physical Exam Findings: [] (5) 3. Thenar atrophy and/or weakness [x] (5) 4. Positive Phalen's test (equivocal, as whole hand tingling with flexion) [] (4.5) 5. Loss of 2 point discrimination [] (4) 6. Positive Tinel sign Total Score (out of 26): 4 (equivocal) >12 = 0.80 probability of carpal tunnel syndrome >5 = 0.25 probability of carpal tunnel syndrome Assessment/Plan: 35 y.o. year-old male who presents for concern for recurrent left cubital tunnel syndrome and some general concerns regarding left elbow, hand pain At this time, there is no objective weakness in the LEFT hand or upper extremity. There is maximum 4 score from the CTS-6 which concludes very low probability of carpal tunnel syndrome. Patient denies numbness/tingling in median nerve distribution. Patient does endorse numbness/tingling in the ulnar distribution however has no demonstrable sensory deficits with 2 point discrimination. At this time, his biggest complaints surround the elbow pain/burning sensation. At this time, no acute surgical target. I think patient will benefit from further pain management services, with a referral to pain management services. Do not see concern today for deep structural abnormality, acute compression, or nerve injury from surgery at this time. Do not see any focal abnormality on exam today to warrant proceeding right awaywith MRI or EMG. These remain possible further work-up options however if symptoms do worsen. Plan: -Activity as tolerated -Referral to pain management today for evaluation of nonoperative options -Worker's Compensation paperwork completed in office today -Continue home exercises for strengthening If patient's symptoms worsen with more numbness/tingling, weakness would consider repeat EMG. Patient to call sooner with any questions or concerns. This plan was discussed with the patient and they are in agreement. All of the patient's questions were answered, and they were satisfied with the discussion. Follow up: Referral to pain management PRN with hand surgery team The above dictation was made with voice recogonition software. Jaja Alatorre MD Orthopedic Resident I have seen and examined the above named patient, reviewed and edited the contents of the note supplied by the resident or physician employment program representative with whom I saw the patient, and reviewed our findings and recommendations with the patient in person. Bob Obregon MD, MPH Department of Orthopaedic Surgery Pediatric Orthopaedic & Hand Surgeon documented in this encounter Plan of Treatment Scheduled Referrals Name Type Priority Associated Diagnoses Orde r Schedule Referral to Pain Management Outpatient Referral Routine Cubital tunnel syndrome, unspecified laterality Ordered: 03/10/2021 documented as of this encounter Visit Diagnoses Diagnosis Cubital tunnel syndrome, unspecified laterality documented in this encounter Care Teams Wheel Fitter Relationship Specialty Start Date End Date Demetri Temple PA PCP - General Internal Medicine 02/16/21 05/10/21 documented as of this encounter
--- OUTSIDE RECORDS SUMMARY | 2023-12-20 10:57 | XMS_ITS | Encounter Summary ---
Author Organization [facility] Address [facility] [place] [address] Care Team Providers Care Sales Promotion Coordinator Name Role Phone SofiyaLeslie meehan MART Primary Care Provider [phone] Reason for Visit * Auth/Cert Specialty Diagnoses / Procedures Referred By Berenice t Referred To Contact Diagnoses carpal tunnel syndrome Procedures PRO REVISE MEDIAN N/CARPAL TUNNEL SURG PRO REVISE ULNAR NERVE AT ELBOW PRO GRAFTING OF AUTOLOGOUS FAT BY LIPO 50 CC OR LESS MEDIAN NERVE DECOMPRESSION (CARPAL TUNNEL RELEASE) (WRVU 4.97) NEUROPLASTY &/OR TRANSPOSITION, ULNAR NERVE AT ELBOW (WRVU 7.26) GRAFTING OF AUTOLOGOUS FAT HARVESTED BY LIPOSUCTION TECHNIQUE TO TRUNK, BREASTS, SCALP, ARMS, AND/OR LEGS; <50 CC INJ - ADAMA Referral ID Status Reason Start Date Expiration Date Visits Re quested Visits Authorized [id number] 1 1 Encounter Details Date Type Department Care Team (Late st Contact Info) Description 10/08/2021 3:18 PM EDT Anesthesia Event [place] [address] Silas Cannon MD [facility] [place] [address] Laura Eaton MD [facility] [place] [address] Anesthesia Record Procedure Summary Procedure Name Responsible Anesthesiologist Anesthesia Start Time Anesthesia Stop Time MEDIAN NERVE DECOMPRESSION (CARPAL TUNNEL RELEASE) (WRVU 4.97) (Left: Hand) Silas Cannon MD 10/08/21 1518 10/08/21 1738 Events Date Time Event Comment 10/08/2021 1425 1518 AN Verify 1518 Start 1518 An Start Data 1528 An Induction 1530 An Intubation 1532 Anesthesia Ready 1551 An Tourn Inflated 1551 Procedure Start 1653 An Tourn Deflated 1656 Handoff Intra-procedure anesthesia care was transferred after review of the patient's history, current anesthetic/surgical status and procedural plan, anticipated issues and expected post-operative course (including disposition.) Corin [place] CRNA 173 Extubation/LMA Out 173 an stop data 1733 Recovery or ICU Handoff Dolores ent care was transferred to the destination unit staff after review of the patient's medical history, current anesthetic/surgical status and plan, according to the Provider Handoff Checklist. 1738 Stop Meds Name Total Propofol 200 mg Propofol INF 949.9 mg Midazolam 2 mg IV Lidocaine 60 mg Ondansetron 4 mg Dexmedetomidine 8 mcg ceFAZolin (Ancef) 2 g in dextrose 5% 100 mL infusion 2 g Lactated Ringers 600 mL * Agents Name O2 Air N2O Sevoflurane (et) * Blood No blood administrations on file. Lines, Drains, and Airways Type Details Placement Removal Incision 10/08/21; 1551; Left , anterior, lower; arm; transverse 10/08/21 1551 by Dontae Padilla, BENNY (RETIRED) Peripheral IV Line - Single Lumen 10/08/21; 1432; basilic vein (medial side of arm), right; 22 gauge; kallie braxton; appears comfortable, tolerated well, distraction; 1; metacarpal vein (top of hand), right; 10/08/21; 1850 10/08/21 1432 by Shirley Braxton RN 10/08/21 185 by Lesly Cardenas RN Supraglottic Mask Ventilation: No t Attempted (0); LMA Type: iGel; LMA Size: 4; Inserted by: BRIAN [place]; Removal Date: 10/08/21; Removal Time: 172910/08/21 153 by Corin [place] CRNA 10/08/21 173 by Keith Dcik CRNA documented in this encounter Social History Tobacco Use Types Packs/Day Years [...] AM EDT documented as of this encounter OR Notes * Anesthesia Postprocedure Evaluation - Silas Cannon MD - 10/08/2021 7:19 PM EDT Department of Anesthesiology Post-procedure Note Patient: Dallas Scruggs Procedure Summary Date: 10/08/21 Room / Location: [facility] Anesthesia Start: 1517 Anesthesia Stop: 1737 Procedures: MEDIAN NERVE DECOMPRESSION (CARPAL TUNNEL RELEASE) (WRVU 4.97) (Left Hand) NEUROPLASTY &/OR TRANSPOSITION, ULNAR NERVE AT ELBOW (WRVU 7.26) (Left Elbow) Diagnosis: Carpal tunnel syndrome on left (carpal tunnel syndrome) Surgeons: Yousif Taylor MD Responsible Provider: Silas aCnnon MD Anesthesia Type: general ASA Status: 2 All Anesthesia Providers: Anesthesiologist: Silas Cannon MD ROAD TEST EXAMINER: Corin [place] CRNA; Keith Dick CRNA Vitals Value Taken Time BP 137/92 10/08/21 1830 Temp 37.4 ??C (99.3 ??F) 10/08/21 1733 Pulse 79 10/08/21 1839 Resp 15 10/08/21 1839 SpO2 99 % 10/08/21 1839 Pain Level 10 10/08/21 1830 Vitals shown include unvalidated device data. Patient Location: PACU/[facility] Level of Consciousness: Awake and Alert Pain Management: Satisfactory Analgesia PONV: None Cardiovascular Status: At Baseline and Hemodynamically Stable Respiratory Status: At Baseline and Room Air Postoperative Fluid Status: Intravascular EUvolemia Possible Anesthetic Complications: NONE apparent at time of evaluation Final Primary Anesthesia Type: General (The anesthetic type performed was the same as planned.) Comments: * Anesthesia Preprocedure Evaluation - Laura Eaton MD - 10/08/2021 12:39 PM EDT Pre-Anesthesia Evaluation for: Dallas Scruggs a 35 y.o. male. Procedure(s): MEDIAN NERVE DECOMPRESSION (CARPAL TUNNEL RELEASE) (WRVU 4.97) NEUROPLASTY &/OR TRANSPOSITION, ULNAR NERVE AT ELBOW (WRVU 7.26) GRAFTING OF AUTOLOGOUS FAT HARVESTED BY LIPOSUCTION TECHNIQUE TO TRUNK, BREASTS, SCALP, ARMS, AND/OR LEGS; <50 CC INJ - ADAMA There are no problems to display for this patient. No past medical history on file. No past surgical history on file. Social History Tobacco Use ??? Smoking status: Former Smoker Quit date: 03/10/2015 Years since quittin.5 ??? Smokeless tobacco: Never Used Substance Use Topics ??? Alcohol use: Never Social History Substance and Sexual Activity Drug Use Yes ??? Types: Marijuana Allergies Allergen Reactions ??? Sulfa (Sulfonamide Antibiotics) Hives Medications: MAR and/or home medications have been reviewed. Physical Exam: Preprocedure Vitals Current as of 10/08/21 1239 No BP, pulse, respiration, SpO2, or temperature recorded. Height: Weight: BMI: IBW: Airway Assessment: Mallampati: I TM distance: >3 FB Neck ROM: full Cardiovascular Assessment: Rhythm: regular Rate: normal system normal Pulmonary Assessment: unlabored breathing pulmonary exam normal Dental Assessment: - normal exam Misc Assessment: Patient is wearing No contact(s). IV access: Peripheral line Last Filed Perioperative Cognitive Screening None Anesthesia Plan: ASA 2 general, with a(n) intravenous induction 35 yo male here for left hand median nerve decompression and left elbow ulnar nerve neuroplasty/ transposition Med hx sig chronic pain receiving 10mg suboxone daily [place];PIV Region - Other Informed Consent: Anesthetic plan and risks discussed with patient. Plan discussed with ROAD TEST EXAMINER. Anesthesia Screening documented in this encounter Plan of Treatment Not on file documented as of this encounter Visit Diagnoses Not on filedocumented in this encounter Administered Medications Inactive Administered Medications - up to 3 most recent administrations Medication Order MAR Action Action Date Dose Rate Site ceFAZolin (Ancef) 2 g in dextrose 5% 100 mL infusion 2 g, Intravenous, ONCE, 1 dose, On Mon10/08/21 at 1500, Administer over 30 Minutes, Indication for (Active or Suspected): Prophylaxis Given 10/08/2021 3:33 PM EDT 2 g dexmedetomidine (Precedex) (4 mcg/mL) bolus injection (Anesthsia) Intravenous, PRN, Starting on Mon10/08/21 at 1525, Until Mon10/08/21 at 1738, Anesthesia Intra-op, Routine Given 10/08/2021 3:25 PM EDT 8 mcg lactated ringers infusion Intravenous, CONTINUOUS PRN, Starting on Mon10/08/21 at 1518, Until Mon10/08/21 at 1738, Anesthesia Intra-op New Bag 10/08/2021 3:18 PM EDT lidocaine (pf) (Xylocaine) (20 mg/mL) 2% injection syringe Intravenous, PRN, Starting on Mon10/08/21 at 1528, Until Mon10/08/21 at 1738, Anesthesia Intra-op, Routine Given 10/08/2021 3:28 PM EDT 60 mg midazolam (pf) (Versed) (1 mg/mL) multi-dose injection Intravenous, PRN, Starting on Mon10/08/21 at 1519, Until Mon10/08/21 at 1738, Anesthesia Intra-op, Routine Given 10/08/2021 3:19 PM EDT 2 mg ondansetron (pf) (Zofran) (2 mg/mL) injection Intravenous, PRN, Starting on Mon10/08/21 at 1700, Until Mon10/08/21 at 1738, Anesthesia Intra-op, Routine Given 10/08/2021 5:00 PM EDT 4 mg propofoL (Diprivan) (10 mg/mL) infusion Intravenous, CONTINUOUS PRN, Starting on Mon10/08/21 at 1531, Until Mon10/08/21 at 1738, Anesthesia Intra-op, Routine Rate/Dose Change 10/08/2021 4:23 PM EDT 125 mcg/kg/min 48.3 mL/hr Rate/Dose Change 10/08/2021 3:35 PM EDT 150 mcg/kg/min 57. 96 mL/hr New Bag 10/08/2021 3:31 PM EDT 200 mcg/kg/min 77.28 mL/ hr propofoL (Diprivan) 10 mg/mL bolus injection (Anesthesia) Intravenous, PRN, Starting on Mon10/08/21 at 1528, Until Mon10/08/21 at 1738, Anesthesia Intra-op Given 10/08/2021 3:28 PM EDT 200 mg documented in this encounter Care Teams Sales Promotion Coordinator Relationship Specialty Start Date End Date Leslie Briggs, MART [address] [place] [address] PCP - General Family Medicine 05/11/21 08/28/22 documented as of this encounter
--- OUTSIDE RECORDS SUMMARY | 2023-12-20 10:57 | XMS_ITS | Encounter Summary ---
[place] [address] Care Team Providers Care Renewal Specialist Name Role Phone Leslie Briggs APRN Primary Care Provider [phone] Encounter Details Date Type Department Care Team (Latest Contact Info) Description 05/16/2022 Travel Social History Tobacco Use Types Packs/Day [...] on filedocumented in this encounter Care Teams Renewal Specialist Relationship Specialty Start Date End Date Leslie Briggs APRN [address] [place] [address] PCP - General Family Medicine 05/11/21 08/28/22 documented as of this encounter
--- OUTSIDE RECORDS SUMMARY | 2023-12-20 10:57 | XMS_ITS | Encounter Summary ---
Author Organization [facility] Address [facility] [place] [address] Care Team Providers Care Office Support Assistant Name Role Phone Leslie Briggs APRN Primary Care Provider [phone] Reason for Visit * Reason Comments Follow Up Surgery S/p left carpal tunn el, medial epicondylectomy, fat grafting Encounter Details Date Type Department Care Team (Late st Contact Info) Description 12/27/2021 1:30 PM EDT Office [place] [address] Yousif Bentley MD [facility] [address] Surgery follow-up Social History Tobacco Use Types Packs/Day Years [...] as of this encounter Progress Notes * Connie Mehta - 12/27/2021 10:45 AM EDT Plastic Surgery Follow Up Note Provider: Yousif Bentley M.D. Date of Surgery: 10/08/21 Procedure(s): left carpal and cubital tunnel, medial epicondylectomy, fat grafting ([place]) Complications: None Reported HPI: Patient returns to clinic for a follow up visit and continues working with Physical Therapy twice a week. He hasn't been able to drive because he has difficulty with left hand turns. He mentions that he has seen some return in sensation and all of his prior numbness has resolved. Examination: Patient is alert, conversant, comfortable, ambulating Left upper extremity Incision well healed but painful at the wrist Noticed an increase feeling in all fingers. Full ROM Impression: Dallas Scruggs is a 36 y.o. male who was seen today for follow-up after the above procedure. Please see the operative note for details. Seeing some overall Improvement. Will continue with OT. Plan: Follow up in one month. I, Connie Mehta, have performed the documentation for this encounter in the presence of and acting as a scribe for YOUSIF BENTLEY MD. documented in this encounter Plan of Treatment Not on file documented as of this encounter Visit Diagnoses Diagnosis Surgery follow-up Follow-up examination, following unspecified surgery documented in this encounter Care Teams Office Support Assistant Relationship Specialty Start Date End Date Leslie Briggs, MART [address] [place] [address] PCP - General Family Medicine 05/11/21 08/28/22 documented as of this encounter
--- OUTSIDE RECORDS SUMMARY | 2023-12-20 10:57 | XMS_ITS | Encounter Summary ---
Author Organization [facility] [place] [address] Care Team Providers Care Food Photographer Name Role Phone Demetri Temple Primary Care Provider [phone] Reason for Referral * Consultation (Routine) - Closed Specialty Diagnoses / Procedures Referred By Contac t Referred To Contact Orthopaedics Diagnoses Ulnar neuropathy at elbow of left upper extremity Left wrist pain Marianna Arana APRN [facility] [place] [address] [facility] [address] [place] [phone] Referral ID Status Reason Start Date Expiration Date V isits Requested Visits Authorized [id number] Closed Consult, Test & Treat 10/14/2022 10/14/2023 1 1 Encounter Details Date Type Department Care Team (Late st Contact Info) Description 10/14/2022 Orders Only [facility] [place] [id number] Marianna Arana APRN [facility] [place] [address] Ulnar neuropathy at elbow of left upper extremity; Left wrist pain Social History Tobacco Use Types Packs/Day [...] Scheduled Referrals Name Type Priority Associated Diagnoses Order Schedule Referral to Orthopaedics Outpatient Referral Routine Ulnar neuropathy at elbow of left upper extremity Left wrist pain Ordered: 10/14/2022 documented as of this encounter Visit Diagnoses Diagnosis Ulnar neuropathy at elbow of left upper extremity Left wrist pain Pain in joint, forearm documented in this encounter Care Teams Food Photographer Relationship Specialty Start Date End Date Demetri [place] PA [address] [place] [address] PCP - General Internal Medicine 08/29/22 documented as of this encounter
--- OUTSIDE RECORDS SUMMARY | 2023-12-20 10:57 | XMS_ITS | Encounter Summary ---
Author Organization [facility] [address] Care Team Providers Care Acute Specialist Name Role Phone Leslie Briggs APRN Primary Care Provider [phone] Encounter Details Date Type Department Care Team (Latest Contact Info) Description 07/08/2021 Travel Social History Tobacco Use Types Packs/Day [...] on filedocumented in this encounter Care Teams Acute Specialist Relationship Specialty Start Date End Date Leslie Briggs APRN [address] [place], [place] [address] PCP - General Family Medicine 05/11/21 08/28/22 documented as of this encounter
--- OUTSIDE RECORDS SUMMARY | 2023-12-20 10:57 | XMS_ITS | Encounter Summary ---
[place] [address] Care Team Providers Care Cosmetology Instructor Name Role Phone ChesterLeslie MART Primary Care Provider [phone] Reason for Referral * Diagnostic Test (Routine) - Closed Specialty Diagnoses / Procedures Referred By Contjanki t Referred To Contact Radiology Diagnoses Lesion of left ulnar nerve Procedures MRI Upper Extremity Non Joint wo Contrast Parker Rogers MD [facility] [place] [address] [place] [address] Referral ID Status Reason Start Date Expiration Date V isits Requested Visits Authorized [id number] Closed Specialty Service Requested 06/05/2021 12/02/2022 1 1 Encounter Details Date Type Department Care Team (Late st Contact Info) Description 06/04/2021 Orders [place] [id number] Parker Rogers MD [facility] [place] [address] Lesion of left ulnar nerve Social History [...] on file documented as of this encounter Results * MRI Upper Extremity Non Joint wo Contrast (06/12/2021 2:32 PM EST) Anatomical Region Laterality Modality Shoulder, Arm, Elbow, Forearm, Wrist, Hand Magnetic Resonance Impressions 06/14/2021 10:58 AM EST 1. ??Normal course and appearance of the ulnar nerve. 2. ??Normal flexor compartment muscles without findings of denervation change. Preliminary report signed by: Rosibel Keller at 06/14/2021 10:35 AM I have personally reviewed the image(s) and the resident's interpretation and agree with the findings, Amy Alaniz MD at 06/14/2021 10:58 AM Thank you for letting us participate in the care of this patient. ??If you are a health care provider and have any questions regarding this report, please contact the number below. ??For patients who have questions please contact the health healthcare facility administrator that requested your imaging first. ? Narrative 06/14/2021 10:58 AM EST EXAMINATION: MRI UPPER EXTREMITY NON JOINT WO CONTRAST CLINICAL HISTORY: patient s/p left endoscopic and cubital release continues to experience pain, discomfort and finger paresthesia in ulnar distribution and FCU wasting Please focus on mid upper arm to mid forearm TECHNIQUE: Noncontrast MRI of the left elbow was performed using axial T1, T2 FS; coronal PD, PD FS; sagittal PD and PD FS sequences. COMPARISON: None FINDINGS: TENDONS: Biceps: Normal Brachialis: Normal Triceps: Normal Common Flexor: Normal Common Extensor: Normal Muscle: Normal bulk and signal without fatty replacement, with particular attention to the flexor compartment and flexor carpi ulnaris. LIGAMENTS: UCL: Intact RCL: Intact Annular: Intact LUCL: Intact Bone: Normal bone marrow signal. No fracture. Cartilage: Normal. Effusion: No joint effusion. Neurovascular: Normal course and caliber. No abnormal signal or mass lesion. Normal appearance of the cubital tunnel. Procedure Note Amy Alaniz MD - 06/14/2021 EXAMINATION: MRI UPPER EXTREMITY NON JOINT WO CONTRAST CLINICAL HISTORY: patient s/p left endoscopic and cubital releasecontinues to experience pain, discomfort and finger paresthesia in ulnar distributionand FCU wasting Please focus on mid upper arm to mid forearm TECHNIQUE: Noncontrast MRI of the left elbow was performed using axial T1,T2 FS; coronal PD, PD FS; sagittal PD and PD FS sequences. COMPARISON: None FINDINGS: TENDONS: Biceps: Normal Brachialis: Normal Triceps: Normal Common Flexor: Normal Common Extensor: Normal Muscle: Normal bulk and signal without fatty replacement, withparticular attention to the flexor compartment and flexor carpi ulnaris. LIGAMENTS: UCL: Intact RCL: Intact Annular: Intact LUCL: Intact Bone: Normal bone marrow signal. No fracture. Cartilage: Normal. Effusion: No joint effusion. Neurovascular: Normal course and caliber. No abnormal signal or masslesion. Normal appearance of the cubital tunnel. IMPRESSION 1. Normal course and appearance of the ulnar nerve. 2. Normal flexor compartment muscles without findings of denervationchange. Preliminary report signed by: Rosibel Keller at 06/14/2021 10:35 AM I have personally reviewed the image(s) and the resident's interpretationand agree with the findings, Amy Alaniz MD at 06/14/2021 10:58 AM Thank you for letting us participate in the care of this patient. If youare a health care provider and have any questions regarding this report,please contact the number below. For patients who have questions please contactthe health healthcare facility administrator that requested your imaging first. Parker Rogers MD IMG MRI ORDERABLES documented in this encounter Visit Diagnoses Diagnosis Lesion of left ulnar nerve Lesion of ulnar nerve Lesion of left ulnar nerve Lesion of ulnar nerve documented in this encounter Care Teams Cosmetology Instructor Relationship Specialty Start Date End Date Leslie Briggs, RIGGER APPRENTICE [address] [place] [address] PCP - General Family Medicine 05/11/21 08/28/22 documented as of this encounter
--- OUTSIDE RECORDS SUMMARY | 2023-12-20 10:57 | XMS_ITS | Encounter Summary ---
Author Organization [facility] Address [facility] [place] [address] Care Team Providers Care Residential Counselor Name Role Phone Leslie Briggs MART Primary Care Provider [phone] Reason for Visit * Auth/Cert Specialty Diagnoses / Procedures Referred By Contac t Referred To Contact Diagnoses carpal tunnel [...] Expiration Date Visits Re quested Visits Authorized [id number] 1 1 Encounter Details Date Type Department Care Team (Latest Contact Info) Description 10/08/2021 1:32 PM EDT - 10/08/2021 6:52 PM EDT Hospital En[place] [address] Yousif Bentley MD [facility] [place] [address] Carpal tunnel syndrome on left Discharge Disposition: Home Social History Tobacco Use Types Packs/Day Years [...] Sign Reading Time Taken Comments Blood Pressure 137/92 10/08/2021 6:30 PM EDT Pulse 79 10/08/2021 6:30 PM EDT Temperature 37.4 ??C (99.3 ??F) 10/08/2021 5:33 PM ED T Respiratory Rate 11 10/08/2021 6:30 PM EDT Oxygen Saturation 99% 10/08/2021 6:30 PM EDT Inhaled Oxygen Concentration - - Weight 64.4 kg (142 lb) 10/08/2021 2:03 PM EDT Height 177.8 cm (5' 10) 10/08/2021 2:03 PM EDT Body Mass Index 20.37 10/08/2021 2:03 PM EDT documented in this encounter Discharge Instructions * Patient Instructions* Jerry Ojeda MD - 10/08/2021 2:48 PM EDT Hand/Forearm Discharge Instructions Keep splint on and dry at all times until your follow-up appointment. For fingers not included in the splint: OK to move your fingers. Do not use your fingers. Avoid weightbearing in your Left upper extremity. Keep hand elevated at all times until your follow-up appointment. Take narcotic pain medication as needed for breakthrough pain. Call our office if: Fingers in splint are white, numb or cold. You have signs of infection A temperature over 100.4 F. Redness of the incision lines that is beginning to spread away from the incision. Yellow pus-like or foul smelling drainage from the incision or drain site. Increase pain/discomfort that is not relieved by your pain medication. To make an appointment or for questions about scheduling, please contact our administrative officesat [phone] For clinical questions, please call our nurses at [phone] Both offices are open Monday thru Monday 8a - 5p. With emergencies after hours, call the hospital donkey ride operator at [phone] and ask for the Plastic Surgery Resident quality control lab tech. documented in this encounter Medications at Time of Discharge Medication Sig Dispensed Refills Start Date End Date rizatriptan (MAXALT) 10 mg Tablet Take 10 mg by mouth as needed. 11/28/2019 oxyCODONE (Roxicodone) 5 mg Tablet Take 1 tablet by mouth every 4 hours as needed for Pain. 20 tablet 10/08/2021 10/10/2021 senna-docusate (Pericolace) 8.6-50 mg Tablet Take 1 tablet by mouth 2 times daily. 10/08/2021 12/27/2021 polyethylene glycoL (Miralax) 17 gram Powder in Packet Take 17 g by mouth 2 times daily. 10/08/2021 12/27/2021 buprenorphine-naloxone (Suboxone) 2-0.5 mg Tablet, Sublingual sublingual tablet 4 mg of opiate daily. Decrease 2mg per month 08/23/2022 gabapentin (NEURONTIN) 600 mg Tablet nightly. 05/16/2022 clonazePAM (KlonoPIN) 0.5 mg Tablet Take 1 tablet by mouth 2 times daily. 04/15/2022 documented as of this encounter Progress Notes * Lesly Cardenas RN - 10/08/2021 6:51 PM EDT Patient alert and oriented, vital signs stable. Reviewed discharge instructions; patient and Hanna verbalized understanding. Copy of instruction sheet with contact numbers for questions/concerns. Pain assessment documented. Patient escorted out of department via wheelchair. documented in this encounter H&P Notes * Jerry Ojeda MD - 10/08/2021 2:30 PM EDT PLASTIC SURGERY PRE-OP H+P S: Patient with history of left endoscopic carpal and open cubital tunnel release in Jun 2020 presenting for persistent pain at elbow and wrist. Denies health and medication changes since last seen by Connie Mehta on behalf of Dr. Bentley on 08/05/21. Reports allergies to sulfa antibiotics. O: General: alert and oriented x 3. Moves all extremities spontaneously. Laying in bed, NAD. Pulm: lungs clear, respirations unlabored on room air. CV: RRR, no murmurs noted. Surgical site: intact skin without lesions or erythema. Assessment / Plan: To OR for open carpal and cubital tunnel decompression and fat grafting. Patientexpresses understanding of risks and benefits and elects to proceed. Jerry Ojeda MD documented in this encounter Miscellaneous Notes * Brief Op Note - Jerry Ojeda MD - 10/08/2021 6:05 PM EDT Brief Operative Note Patient Name: Dallas Scruggs : [id number] MR#: [id number] Case Date: 10/08/2021 Surgeon: Surgeon(s) and Role: * Yousif Bentley MD - Primary * Parker Bolaños MD - Resident * Jerry Ojeda MD - Resident Preoperative diagnosis: carpal tunnel syndrome; cubital tunnel entrapement Postoperative diagnosis: carpal tunnel syndrome ; cubital tunnel entrapment (LEFT) Procedure(s) (LRB): MEDIAN NERVE DECOMPRESSION (CARPAL TUNNEL RELEASE) (WRVU 4.97) (Left) NEUROPLASTY &/OR TRANSPOSITION, ULNAR NERVE AT ELBOW (WRVU 7.26) (Left) Anesthesia: General Findings: s/p decompression of cubital tunnel and carpal tunnel Complications: none Estimated Blood Loss: 50 mL* No values recorded between 10/08/2021 3:51 PM and 10/08/2021 5:32 PM * Specimens removed during surgery: None Fluids: Intraprocedure Crystalloid Total Intake Lactated Ringers 600.00 mL ceFAZolin (Ancef) 2 g in dextrose 5% 100 mL infusion 100.00 mL Total Intake 700 mL Output Blood Loss 50 mL Total Output 50 mL Net Net Volume 650 mL PRBCs: none (See Anesthesia Record/Report for Other Blood Products) Urine Output: (no urine output recorded) Drains: none Disposition: awakened from anesthesia, extubated and taken to the recovery room in a stable condition, having suffered no apparent untoward event. Condition: doing well without problems (Please see the Surgical Encounter Summary for any Implant and Specimen details pertinent to this patient.) Surgical Infection Prevention Bundle Used? 2g Ancef pre-op Post-Op Plan: - Follow up in: 7-14 days - Wound Check - Suture removal: L elbow and L wrist/~14 days - Dressings: remove splint and replace - X-rays: no - OT coordinating appointments needed: no Future Appointments Date Time Provider Department Center 10/22/2021 9:40 AM Stella Bran APRN [facility] PLAS 4M [facility] * Op Note - Yousif Bentley MD - 10/08/2021 3:51 PM EDT [facility] Operative Note Patient Name: Dallas Scruggs : [id number] MR#: [id number] Case Date: 10/08/2021 Surgeon: Surgeon(s) and Role: * Yousif Bentley MD - Primary * Parker Bolaños MD - Resident * Jerry Ojeda MD - Resident Preoperative diagnosis: carpal tunnel syndrome Postoperative diagnosis: carpal tunnel syndrome Procedure(s) (LRB): MEDIAN NERVE DECOMPRESSION (CARPAL TUNNEL RELEASE) (WRVU 4.97) (Left) NEUROPLASTY &/OR TRANSPOSITION, ULNAR NERVE AT ELBOW (WRVU 7.26) (Left) Medial epicondylectomy Anesthesia: General Estimated Blood Loss: 50 mL Specimens removed during surgery: None Drains: * No LDAs found * Surgical Closure: Primary Closure - skin incision is completely closed without any wires, nathaly, drains or other devices Disposition: awakened from anesthesia, extubated and taken to the recovery room in a stable condition, having suffered no apparent untoward event. Condition: doing well without problems (Please see the Surgical Encounter Summary for any Implant and Specimen details pertinent to this patient.) HPI/Surgical Indications: Patient had prior carpal tunnel release and cubital tunnel release left arm. Electrical studies show persistent nerve entrapment at both sites. Procedure Description: Patient was brought to the OR. Time out was done. Patient was given general anesthesia. Left arm was prepped and draped in a sterile manner. Tourniquet was applied. Left carpaltunnel was re- released completely . There was constriction of the nerve and an hour glass deformity. A Neurolysis was done under magnification. Then the cubital tunnel was released. A Medial epicondylectomy was performed. Neurolysis of the nerve under magnification was done. Nerve was constricted.Bleeding was controlled with ligaclips and electrocautery. After tounriquet was taken down. Deep layers were closed with 3- 0 vicryl and skin with 4-0 nylon. A splint dressing was applied to immobilize the elbow and wrist. There were no specimens and no complications. Surgical Infection Prevention Bundle Used? No Attestation: Case Date: 10/08/2021 I was present and I participated during the entire procedure (does not need to include opening and closing). YOUSIF BENTLEY MD 10/11/2021 documented in this encounter Plan of Treatment Not on file documented as of this encounter Procedures Procedure Name Priority Date/Time Associated Diagnosis Comments Revise Ulnar Nerve At Elbow (27804) Yes 10/08/2021 3:20 PM EDT Carpal tunnel syndrome on left Revise Median N/Carpal Tunnel Surg (46549) Yes 10/08/2021 3:20 PM EDT Carpal tunnel syndrome on left MEDIAN NERVE DECOMPRESSION (CARPAL TUNNEL RELEASE) Routine 10/08/2021 1:42 PM EDT Carpal tunnel syndrome on left NEUROPLASTY &/OR TRANSPOSITION, ULNAR NERVE AT ELBOW Routine 10/08/2021 1:42 PM EDT Carpal tunnel syndrome on left documented in this encounter Visit Diagnoses Diagnosis Carpal tunnel syndrome on left Carpal tunnel syndrome documented in this encounter Administered Medications Inactive Administered Medications - up to 3 most recent administrations Medication Order MAR Action Action Date Dose Rate Site HYDROmorphone (Dilaudid) (0.2 mg/1 mL) injection syringe 0.4 mg 0.4 mg, Intravenous, EVERY 10 MIN PRN, Starting on Mon10/08/21 at 1736, Until Mon10/08/21 at 1850, Pain, For Moderate to Severe Pain (6-10 out of 10), Hold for respiratory rate less than 10 per minute. Maximum dose 3 mg over one hour including administrations in the OR. If multiple pain medications are ordered, start with HYDROmorphone or morphine and use fentaNYL for breakthrough pain, PACU Recovery, Routine Given 10/08/2021 6:30 PM EDT 0.4 mg Given 10/08/2021 6:15 PM EDT 0.4 mg oxyCODONE (Roxicodone) tablet 10 mg 10 mg, Oral, EVERY 4 HOURS PRN, Starting on Mon10/08/21 at 1823, Until Mon10/08/21 at 2052, Pain, Routine Given 10/08/2021 6:27 PM EDT 10 mg documented in this encounter Active and Recently Administered Medications Times are shown in EDT. Scheduled Medication Order 10/06/2021 10/07/2021 10/08/2021 ceFAZolin (Ancef) 2 g in dextrose 5% 100 mL infusion (COMPLETED) 2 g, Intravenous, ONCE, 1 dose, On Mon10/08/21 at 1500, Administer over 30 Minutes, Indication for (Active or Suspected): Prophylaxis 1533 (Given - Provid er: Corin Gordon CRNA) PRN Medication Order 10/06/2021 10/07/2021 10/08/2021 BUpivacaine (pf) (Marcaine) (7.5 mg/mL) 0.75% injection (CANCELED) ONCE PRN, Starting on Mon10/08/21 at 1707, Until Mon10/08/21 at 205, Intra-Operative (Intra-Procedure), Routine 170 (Given - Provid er: Yousif Bentley MD) HYDROmorphone (Dilaudid) (0.2 mg/1 mL) injection syringe 0.4 mg (CANCELED)(Linked Group 1) 0.4 mg, Intravenous, EVERY 10 MIN PRN, Starting on Mon10/08/21 at 1736, Until Mon10/08/21 at 1850, Pain, For Moderate to Severe Pain (6-10 out of 10), Hold for respiratory rate less than 10 per minute. Maximum dose 3 mg over one hour including administrations in the OR. If multiple pain medications are ordered, start with HYDROmorphone or morphine and use fentaNYL for breakthrough pain, PACU Recovery, Routine 1814 (Given - Provid er: Lesly Cardenas RN)183 (Given - Provider: Lesly Cardenas RN) oxyCODONE (Roxicodone) tablet 10 mg 10 mg, Oral, EVERY 4 HOURS PRN, Starting on Mon10/08/21 at 1823, Until Mon10/08/21 at 2051, Pain, Routine 182 (Given - Provid er: Lesly Cardenas RN) Linked Groups Order Group 1: HYDROmorphone (Dilaudid) (0.2 mg/1 mL) injection syringe 0.2 mg (CANCELED) 0.2 mg, Intravenous, EVERY 10 MIN PRN, Starting on Mon10/08/21 at 1736, Until Mon10/08/21 at 1850, Pain, For Mild to Moderate Pain (1-5 out of 10), Hold for respiratory rate less than 10 per minute. Maximum dose 3 mg over one hour including administrations in the OR. If multiple pain medications are ordered, start with HYDROmorphone or morphine and use fentaNYL for breakthrough pain, PACU Recovery, Routine Or HYDROmorphone (Dilaudid) (0.2 mg/1 mL) injection syringe 0.4 mg (CANCELED)Jump to med 0.4 mg, Intravenous, EVERY 10 MIN PRN, Starting on Mon10/08/21 at 1736, Until Mon10/08/21 at 1850, Pain, For Moderate to Severe Pain (6-10 out of 10), Hold for respiratory rate less than 10 per minute. Maximum dose 3 mg over one hour including administrations in the OR. If multiple pain medications are ordered, start with HYDROmorphone or morphine and use fentaNYL for breakthrough pain, PACU Recovery, Routine documented in this encounter Care Teams Residential Counselor Relationship Specialty Start Date End Date Leslie Briggs, MART [address] [place] [address] PCP - General Family Medicine 05/11/21 08/28/22 documented as of this encounter
--- OUTSIDE RECORDS SUMMARY | 2023-12-20 10:57 | XMS_ITS | Encounter Summary ---
Author Organization [facility] [address] Care Team Providers Care Delinquent Notice Machine Operator Name Role Phone Demetri Temple Primary Care Provider Encounter Details Date Type Department Care Team (Late st Contact Info) Description 08/31/2022 Ancillary Procedure [place] [id number] Demetri Temple PA [address] [facility] [address] [place] [address] Social History Tobacco Use Types Packs/Day Years [...] Procedure Name Priority Date/Time Associated Diagnosis Comments FILM LIBRARY STORAGE ONLY DX ELBOW Routine 08/31/2022 12:00 AM EDT documented in this encounter Results * Film Library- Storage Only DX Elbow (08/31/2022 12:00 AM EDT) Narrative [facility] - 09/02/2022 11:31 AM EDT This exam is auto-finalizing. It's purpose is for storage only. Demetri SHARMA [facility] FILM LIBRARY ORD ERABLES [place], [place] documented in this encounter Visit Diagnoses Not on filedocumented in this encounter Care Teams Delinquent Notice Machine Operator Relationship Specialty Start Date End Date Demetri Temple PA [address] [place] [address] PCP - General Internal Medicine 08/29/22 documented as of this encounter
--- OUTSIDE RECORDS SUMMARY | 2023-12-20 10:57 | XMS_ITS | Encounter Summary ---
Author Organization [facility] [place] [address] Care Team Providers Care Doper Operator Name Role Phone Cynthia Briggsh MART Primary Care Provider [phone] Reason for Referral * Occupational Therapy (Routine) - Duplicate Referral Specialty Diagnoses / Procedures Referred By Berenice barragan Referred To Contact Diagnoses Carpal tunnel syndrome on left Stella Bran APRN [facility] [place] [address] Referral ID Status Reason Start Date Expiration Date Visits Requested Visits Authorized [id number] Duplicate Referral Evaluate and Treat 10/22/2021 04/20/2022 12 12 Reason for Visit * Reason Comments Follow Up Surgery S/p left carpal tunn el medial Encounter Details Date Type Department Care Team (Late st Contact Info) Description 10/22/2021 9:40 AM EDT Office [place] [address] Stella Bran APRN [facility] [place] [address] Surgery follow-up; Carpal tunnel syndrome on left Social History Tobacco Use Types Packs/Day Years [...] as of this encounter Progress Notes * Stella Bran APRN - 10/22/2021 9:40 AM EDT Plastic Surgery Follow Up Note Provider: Stella Bran APRN Date of Surgery: 10/08/21 Procedure(s): left carpal and cubital tunnel, medial epicondylectomy, fat grafting ([place]) Complications: None Reported HPI: Patient reports extreme pain in his wrist and elbow. He reports that he feels like a chucky in inhis arm. He typically takes 8 mg per day of Suboxone. This was recently increased to 10 mg due to his pian. He took the higher dose for one day and reports that it did not work. His treatment prescribe is at [facility] which he reports is only open Monday & at the [place] office. The patient says the his fingers are all numb. It hurts so much that I'm only focused on the pain. Examination: Patient is alert, conversant, comfortable, ambulating Hand is warm and well perfused. Incisions: CDI, healing well. Nylon sutures removed today. No collection, no erythema, no evidence of cellulitis. Impression: Dallas Scruggs is a 35 y.o. male who was seen today for follow-up after the above procedure. Please see the operative note for details. He appears to be healing well though his pain is out of control. I googled a phone number for [facility] (patient could not provide contact info). I did speak with a person who transferred me to a different office. I left a message asking for a return phone call. I discussed the patient's pain with him. I acknowledge that his pain is not well controlled. This is certainly complicated by his history of addiction and Suboxone use. He has tried increased dose of Suboxone for one day. I recommended that he try this for longer. Plan: Follow up: [address] Taylor Referral to OT for hand therapy in [facility] Physical Therapy at [facility] in [facility] Dr. Taylor in to see patient and agrees with the plan. I, Meghan Arnold, have performed the documentation for this encounter in the presence of and acting as a scribe for PEPITO PUTNAM MD. I performed the services which were documented by the scribe, and I agree with the accuracy of the documentation in this encounter. STELLA BRAN APRN documented in this encounter Plan of Treatment Scheduled Referrals Name Type Priority Associated Diagnoses Order Schedule Referral to Occupational Therapy Outpatient Referral Routine Carpal tunnel syndrome on left Ordered: 10/22/2021 documented as of this encounter Visit Diagnoses Diagnosis Surgery follow-up Follow-up examination, following unspecified surgery Carpal tunnel syndrome on left Carpal tunnel syndrome documented in this encounter Care Teams Doper Operator Relationship Specialty Start Date End Date Leslie Briggs APRN [address] [place] [address] PCP - General Family Medicine 05/11/21 08/28/22 documented as of this encounter
--- OUTSIDE RECORDS SUMMARY | 2023-12-20 10:57 | XMS_ITS | Encounter Summary ---
Author Organization [facility] [place] [address] Care Team Providers Care Linotype Worker Name Role Phone Leslie Briggs APRN Primary Care Provider [phone] Encounter Details Date Type Department Care Team (Late st Contact Info) Description 08/24/2022 Telephone Pain and Spine Center at [facility] [place] [phone] Malaika Baptiste, RN Social History Tobacco Use Types Packs/Day Years [...] AM EDT documented as of this encounter Miscellaneous Notes * Telephone Encounter - Malaika Baptiste, RN - 08/24/2022 12:56 PM EDT Incoming call from PT in [place] stating they do not do Occ Therapy. Reviewed chart. Will contact pt to find out where his WC choices are. OUTGOING call to pt. Reported to pt. He will contact his WC insurance person to find appropriate OTfacility. Will let us know. documented in this encounter Plan of Treatment Not on file documented as of this encounter Visit Diagnoses Not on filedocumented in this encounter Care Teams Linotype Worker Relationship Specialty Start Date End Date Leslie Briggs, MART [address] [place] [address] PCP - General Family Medicine 05/11/21 08/28/22 documented as of this encounter
--- OUTSIDE RECORDS SUMMARY | 2023-12-20 10:57 | XMS_ITS | Encounter Summary ---
[place] [address] Care Team Providers Care Demurrage Man Name Role Phone SofiyaLeslie meehan MART Primary Care Provider [phone] Reason for Visit * Consultation (Routine) - Closed Specialty Diagnoses / Procedures Referred By Berenice barragan Referred To Contact Gastroenterology Diagnoses Heartburn Abdominal pain Nausea HREM/pH impedance - Off PPI Procedures HIGH RESOLUTION ESOPHAGEAL MANOMETRY PH IMPEDANCE - 24 HOUR PRG UNLISTED DIAGNOSTIC GASTROENTEROLOGY PROCEDURE PRG ESOPHAGEAL MOTILITY STUDY PRG GERD TST W MUCOS IMPEDE ELECTROD, >1HR HREM/pH IMP-Off PPI Adelaida Villegas MD [address] [place] [address] [facility] [address] [place] [address] Referral ID Status Reason Start Date Expiration Date V isits Requested Visits Authorized [id number] Closed Test Only PCP Updated and/or Approved 06/15/2020 06/15/2021 1 1 Encounter Details Date Type Department Care Team (Late st Contact Info) Description 05/24/2021 9:00 AM EST Procedure [place] [address] Heartburn Social History Tobacco Use Types Packs/Day Years [...] Sign Reading Time Taken Comments Blood Pressure 134/90 05/24/2021 9:55 AM EST Pulse 67 05/24/2021 9:55 AM EST Temperature - - Respiratory Rate 16 05/24/2021 9:55 AM EST Oxygen Saturation 98% 05/24/2021 9:55 AM EST Inhaled Oxygen Concentration - - Weight - - Height - - Body Mass Index - - documented in this encounter Progress Notes * Siddhartha Davalos LPN - 05/24/2021 9:00 AM EST A description of the esophageal manometry procedure was provided to the patient. All questions wereanswered and the patient verbalized understanding. The patient was unable to tolerate the lidocaine spray. He became panicky and the study was aborted. The pt was place in Trendelenberg, wrapped in warm blankets and vital signs monitored. See VS for details. VS wnl and stable throughout observation period. Patient was monitored and observed for 40 mins. All panic symptoms resolved and patient was discharged in stable condition ambulating from Motility Lab. documented in this encounter Plan of Treatment Not on file documented as of this encounter Visit Diagnoses Diagnosis Heartburn documented in this encounter Care Teams Demurrage Man Relationship Specialty Start Date End Date Leslie Briggs APRN [address] [place] [address] PCP - General Family Medicine 05/11/21 08/28/22 documented as of this encounter
--- OUTSIDE RECORDS SUMMARY | 2023-12-20 10:57 | XMS_ITS | Encounter Summary ---
Author Organization [facility] [place] [address] Care Team Providers Care Inseam Leveler Name Role Phone Cynthia Briggsh MART Primary Care Provider [phone] Encounter Details Date Type Department Care Team (Late st Contact Info) Description 08/25/2022 Telephone Pain and Spine Center at [facility] [phone] Alexsandra Allred Social History Tobacco Use Types Packs/Day Years [...] encounter Miscellaneous Notes * Telephone Encounter - Alexsandra Allred - 08/25/2022 2:43 PM EDT 08/25/2022 If Shannan, Nurse case manger for this patient's workman's case, should call back. She is inquiring about the patient's recent OT referral . Her question is ,is the patient needing to still attend both PT & OT since he has had 36 PT sessions and had a BRENT in April of 2022 that stated no more PT. After following up w/ MART Arana regarding this, she stated he is only needing to be seenfor OT. documented in this encounter Plan of Treatment Not on file documented as of this encounter Visit Diagnoses Not on filedocumented in this encounter Care Teams Inseam Leveler Relationship Specialty Start Date End Date Leslie Briggs APRN [address] [place] [place] [address] PCP - General Family Medicine 05/11/21 08/28/22 documented as of this encounter
--- OUTSIDE RECORDS SUMMARY | 2023-12-20 10:57 | XMS_ITS | Encounter Summary ---
Author Organization [facility] [place] [address] Care Team Providers Care Forest Law And Policy Professor Name Role Phone Leslie Briggs APRN Primary Care Provider [phone] Encounter Details Date Type Department Care Team (Late st Contact Info) Description 10/11/2021 Telephone [place] [phone] Nita Mcfadden Social History Tobacco Use Types Packs/Day Years [...] on filedocumented in this encounter Care Teams Forest Law And Policy Professor Relationship Specialty Start Date End Date Leslie Briggs APRN [address] [facility] [place] [address] PCP - General Family Medicine 05/11/21 08/28/22 documented as of this encounter
--- OUTSIDE RECORDS SUMMARY | 2023-12-20 10:57 | XMS_ITS | Encounter Summary ---
Author Organization [facility] Address [facility] Mauricio dias [place] [id number] Care Team Providers Care Automation And Control Engineer Name Role Phone Demetri Temple Primary Care Provider [phone] Reason for Visit * Reason Comments Follow-up WORK COMP INJURY left ulnar neuropathy and and wrist pain past history ulnar nerve, median nerve, radial nerve and carpal tunnel acting up with failed OT, failed surgical procedures x2 and failed injections in pain and spine. * Consultation (Routine) - Closed Specialty Diagnoses / Procedures Referred By Berenice barragan Referred To Contact Orthopaedics Diagnoses Ulnar neuropathy at elbow of left upper extremity Left wrist pain Marianna Arana APRN [facility] [address] [facility] [address] [place] [phone] Referral ID Status Reason Start Date Expiration Date V isits Requested Visits Authorized [id number] Closed Consult, Test & Treat 10/14/2022 10/14/2023 1 1 Encounter Details Date Type Department Care Team (Late st Contact Info) Description 2022 9:00 AM EDT Office [place] [phone] Bob Obregon MD [facility] DR ORTHOPAEDIC SURGERY [address] Ulnar neuropathy at elbow of left [...] - Inhaled Oxygen Concentration - - Weight 65.8 kg (145 lb) 2022 9:40 AM EDT Height 177.8 cm (5' 10) 2022 9:40 AM EDT Body Mass Index 20.81 2022 9:40 AM EDT documented in this encounter Progress Notes * Bob Obregon MD - 2022 9:00 AM EDT Orthopaedic Clinic Progress Note DATE OF VISIT: 11/22/22 CHIEF COMPLAINT: Chief Complaint Patient presents with Follow-up WORK COMP INJURY 03/10/2021 left ulnar neuropathy and and wrist pain past history ulnar nerve, median nerve, radial nerve and carpal tunnel acting up with failed OT, failed surgical procedures x2 and failed injections in pain and spine. HPI: Dallas Scruggs is a 37 y.o. male patient who presents to the orthopaedic clinic for a follow-up appointment. Followed for LUE nerve dysfunction and symptoms despite prior surgeries. Has had multiple opinions and prior surgery (Brandon - carpal tunnel release, cubital tunnel release, medial epicondylectomy) Dallas Scruggs is a 37 y.o. year-old male RHD who is seen today for LUE symptoms. About 3 years ago, began feeling pain and numbness throughout ulnar digits, then progressed to all fingers. Endorses pain in lateral elbow as well. 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 Since seeing my in 02/2021, he had [...] tried voltaren gel, creams, with no relief. MEDICATIONS: Current Outpatient Medications: methadone (Dolophine) 10 mg tablet, Take 30 mg by mouth daily., Disp: , Rfl: [...] -- BP: -- Body mass index is 20.81 kg/m??. No acute distress Affect within normal limits for age Alert and oriented Speech clear and intact, appropriate for age Head atraumatic Respirations unlabored Brisk capillary refill peripheral bilateral upper extremities, warm and well perfused LUE examined: 4/5 JUAN 4/5 palmar abduction thumb Trace only atrophy thenar and hypothenar 2 point: 7mm or less all digits +Tinel's at elbow with exam concern for subluxation of ulnar nerve medial elbow No significant swelling at elbow, well healed incision. Pain with elbow ROM. IMAGING: No new imaging today ASSESSMENT and PLAN: This is a 37 y.o. male seen in follow-up for LUE symptoms s/p Left CTR and Cubital tunnel release with medial epicondylectomy (Brandon) and persistent symptoms LUE ulnar nerve irritation. He has concern on exam today for possible subluxation / instability of ulnar nerve and we discussedfurther dynamic imaging to confirm and possible surgical intervention to stabilize. Discussed both operative and nonoperative options. Recommend Ultrasound to confirm nerve position and subluxation PLAN: - Dr. Smith [facility] Ultrasound left ulnar nerve at elbow Considering submuscular transposition at elbow, and Guyon's canal release. All questions were answered, and the patient/family were satisfied with the discussion. They know to call sooner with any questions or concerns. Follow-up: Monday visit Melissa Smith and Qudsi (ideally earliest available in the morning). No new xrays prior Bob Obregon MD, MPH Department of Orthopaedic [...] extremity documented in this encounter Care Teams Automation And Control Engineer Relationship Specialty Start Date End Date Demetri Temple PA [address] [place] [address] PCP - General Internal Medicine 08/29/22 documented as of this encounter
--- OUTSIDE RECORDS SUMMARY | 2023-12-20 10:57 | XMS_ITS | Encounter Summary ---
Author Organization [facility] Address [facility] [place] [address] Care Team Providers Care Conveyor Feeder Offbearer Name Role Phone Demetri Temple Primary Care Provider [phone] Reason for Visit * Auth/Cert (Routine) Specialty Diagnoses / Procedures Referred By Contac t Referred To Contact Diagnoses ulnar neuropathy Procedures PRO INJECTION ANES AGENT &/OR STEROID OTHER PERIPHERAL NERVE/BRANCH PRG US GUIDANCE NEEDLE PLACEMENT IMG S&I NERVE BLOCK, OTHER PERIPHERAL NERVE OR BRANCH (WRVU 0.75) Ultrasound Guidance (resource) (17432) Omar Sanchez MD [facility] [place] [address] [facility] Referral ID Status Reason Start Date Expiration Date Visits Re quested Visits Authorized [id number] 1 1 Encounter Details Date Type Department Care Team (Latest Contact Info) Description 09/28/2022 9:48 AM EDT - 09/28/2022 11:09 AM EDT Hospital Encounter Pain [place] [address] Omar Sanchez MD [facility] [place] [address] Ulnar neuropathy at elbow of left upper extremity Discharge Disposition: Home Social History Tobacco Use [...] Pulse 66 09/28/2022 10:07 AM EDT Temperature - - Respiratory Rate - - Oxygen Saturation 100% 09/28/2022 10:07 AM EDT Inhaled Oxygen Concentration - - Weight 65.8 kg (145 lb) 09/28/2022 10:07 AM EDT Height 177.8 cm (5' 10) 09/28/2022 10:07 AM EDT Body Mass Index 20.81 09/28/2022 10:07 AM EDT documented in this encounter Medications at Time of Discharge Medication Sig Dispensed Refills Start Date End Date methadone (Dolophine) 10 mg tablet Take 40 mg by mouth daily. 07/22/2022 clonazePAM (KlonoPIN) 0.5 mg tablet TAKE ONE TABLET BY MOUTH TWICE A DAY NEEDED ANXIETY 08/16/2022 Emgality Pen 120 mg/mL Pen Injector INJECT THE CONTENTS OF 1 SYRINGE (120MG) UNDER THE SKIN ONCE MONTHLY 04/04/2022 rizatriptan (MAXALT) 10 mg Tablet Take 10 mg by mouth as needed. 11/28/2019 documented as of this encounter H&P Notes * Wayne Sanchez MD - 09/28/2022 8:09 AM EDT Patient Name: Dallas Scruggs Patient Age: 36 y.o. Birthdate: 1985 Admit date: 09/28/2022 Attending Physician: Omar Sanchez MD PREPROCEDURE HISTORY AND PHYSICAL Date of Visit: September 28, 2022 Mr. Scruggs presents for Left Ulnar nerve block . Chief Complaint: Left forearm and wrist pain HPI: Subjective Dallas Scrugsg is a 36 y.o. male who presents today for Left Ulnar nerve block with a diagnosis of 1. Ulnar neuropathy at elbow of left upper extremity with symptoms of Left forearm and wrist pain. The history is obtained from the patient, and I have reviewed medical records provided by the referring physician and located in the electronic medical record to fill in gaps in the patient's recollection of events, treatments and outcomes. LOCATION: Left forearm and wrist pain PAIN LEVEL AT REST 8/10 PAST MEDICAL HISTORY: No past medical history on file. There are no medical history contraindications to this procedure. PAST SURGICAL HISTORY: Past Surgical History: Procedure Laterality Date ??? PRO REVISE MEDIAN N/CARPAL TUNNEL SURG Left 10/08/2021 MEDIAN NERVE DECOMPRESSION (CARPAL TUNNEL RELEASE) (WRVU 4.97) performed by Yousif Taylor MD at [facility] MAIN OR ??? PRO REVISE ULNAR NERVE AT ELBOW Left 10/08/2021 NEUROPLASTY &/OR TRANSPOSITION, ULNAR NERVE AT ELBOW (WRVU 7.26) performed by Yousif Taylor MD at [facility] MAIN OR There are no past surgical contraindications to this procedure ALLERGIES: Sulfa (sulfonamide antibiotics) There are no allergic contraindications to this procedure. MEDICATIONS: Medications 09/28/22 1006 Medication Sig Taking? methadone (Dolophine) 10 mg tablet Take 30 mg by mouth daily. clonazePAM (KlonoPIN) 0.5 mg tablet TAKE ONE TABLET BY MOUTH TWICE A DAY NEEDED ANXIETY Emgality Pen 120 mg/mL Pen Injector INJECT THE CONTENTS OF 1 SYRINGE (120MG) UNDER THE SKIN ONCE MONTHLY rizatriptan (MAXALT) 10 mg Tablet Take 10 mg by mouth as needed. There are no medication contraindications to this procedure. FAMILY HISTORY: Family History Problem Relation Age of Onset ??? Connective Tissue Disease Paternal Grandfather SOCIAL HISTORY: Social History Socioeconomic History ??? Marital status: Single Spouse name: Not on file ??? Number of children: Not on file ??? Years of education: Not on file ??? Highest education level: Not on file Occupational History ??? Not on file Tobacco Use ??? Smoking status: Former Types: Cigarettes Quit date: 03/10/2015 Years since quittin.5 ??? Smokeless tobacco: Never Vaping Use ??? Vaping Use: Never used Substance and Sexual Activity ??? Alcohol use: Not Currently Comment: 1-2 drinks a year ??? Drug use: Yes Types: Marijuana ??? Sexual activity: Yes Other Topics Concern ??? Not on file Social History Narrative ??? Not on file Social Determinants of Health Financial Resource Strain: Not on file Food Insecurity: Not on file Transportation Needs: Not on file Physical Activity: Not on file Housing Stability: Not on file There are no social history contraindications to this procedure. ROS: Review of Systems Constitutional: Negative for fever, chills, or recent infection. Respiratory: Negative for shortness of breath. Cardiovascular: Negative for chest pain. Musculoskeletal: Positive for Left forearm and wrist pain. Psychiatric/Behavioral: Negative for agitation and behavioral problems. PHYSICAL EXAM: BP 125/70 (Patient Position: Sitting) Pulse 66 Ht 177.8 cm (5' 10) Wt 65.8 kg (145 lb) SpO2 100% BMI 20.81 kg/m?? Physical Exam Constitutional: He appears well-developed and well-nourished. No distress. Cardiovascular: Normal heart rate. Pulmonary/Chest: Effort normal and breath sounds normal. Skin: He is not diaphoretic. This is no rash, apparent infection, or other abnormality to the area of the proposed injection. Weakness throughout the left upper extremity. Hyperalgesia and allodynia noted in LUE. Pain and LUEsymptoms are not in a one nerve distribution. Rather, it appears that there is involvement of the ulnar, median and possibly radial nerves. ASSESSMENT: 1. Ulnar neuropathy at elbow of left upper extremity PLAN: Considering the results of the examination mentioned above, including allodynia, hyperalgesia and multiple nerve involvement, it would not be indicated to attempt an ulnar nerve block at this time. Procedure will not be performed and we will discuss this with the referring provider, Marianna Arana APRN to determine next steps. Thank you for the opportunity to participate in Dallas Scruggs's care. Please feel free to contact mewith any questions. Sincerely, Wayne Sanchez MD, CHRISTO Pain Medicine Fellow [address] [phone] / [facility] documented in this encounter Plan of Treatment Scheduled Orders Name Type Priority Associated Diagnoses Order Schedule Film Library- Storage Only Pain Clinic Ultrasound Imaging Storage Only Routine Once PRN (for Radiant use) for 1 Occurrences starting 09/28/2022 until 09/28/2022 documented as of this encounter Procedures Procedure Name Priority Date/Time Associated Diagnosis Comments NERVE BLOCK, OTHER PERIPHERAL NERVE OR BRANCH Routine 09/28/2022 9:59 AM EDT Ulnar neuropathy at elbow of left upper extremity documented in this encounter Visit Diagnoses Diagnosis Ulnar neuropathy at elbow of left upper extremity- Primary documented in this encounter Care Teams Conveyor Feeder Offbearer Relationship Specialty Start Date End Date Demetri Temple PA [address] [place] [address] PCP - General Internal Medicine 08/29/22 documented as of this encounter
--- OUTSIDE RECORDS SUMMARY | 2023-12-20 10:57 | XMS_ITS | Encounter Summary ---
Author Organization [facility] [place] [address] Care Team Providers Care Printer Maintainer Name Role Phone Demetri Temple Primary Care Provider Encounter Details Date Type Department Care Team (Late st Contact Info) Description 10/10/2022 Telephone [place] [phone] Alexsandra Allred Social History Tobacco Use Types [...] Miscellaneous Notes * Telephone Encounter - Malaika Baptiste RN - 10/11/2022 12:38 PM EDT SecureChat sent to Dr. Sanchez and Marianna Arana [facility] for advisement/recommendations. * Telephone Encounter - Alexsandra Allred - 10/10/2022 10:55 AM EDT 10/10/2022 Spoke with patient regarding request to schedule follow up with [facility] Marianna Arana to discuss next steps. Sent secure chat to BENNY Puri as LOF 09/06/22 states to follow up with . Procedure was not completed and referral to orthopedics was discussed. .Has not been placed at this time. Informed patient I would follow up once next steps had been clarified. documented in this encounter Plan of Treatment Not on file documented as of this encounter Visit Diagnoses Not on filedocumented in this encounter Care Teams Printer Maintainer Relationship Specialty Start Date End Date Demetri Temple PA [address] [place] [address] PCP - General Internal Medicine 08/29/22 documented as of this encounter
--- OUTSIDE RECORDS SUMMARY | 2023-12-20 10:57 | XMS_ITS | Encounter Summary ---
Author Organization [facility] [place] [address] Care Team Providers Care Yoga Coordinator Name Role Phone SofiyaLeslie meehan APRN Primary Care Provider Reason for Referral * Consultation (Routine) - Closed Specialty Diagnoses / Procedures Referred By Contac t Referred To Contact Pain and Spine Center Diagnoses Lesion of left ulnar nerve Pain- post op pain s/p carpel tunel & Cubital release/ MRI 06/12/21 & EMG 03/18/21 in [facility]/ ? pain mgmt options Parker Rogers MD [facility] [place] [address] [facility] [place] [address] Referral ID Status Reason Start Date Expiration Date V isits Requested Visits Authorized [id number] Closed Consult, Test & Treat 07/08/2021 07/08/2022 1 1 Reason for Visit * Reason Comments Follow-up Discuss MRI results and next steps Encounter Details Date Type Department Care Team (Late st Contact Info) Description 07/08/2021 10:45 AM EST Office [place] [phone] Parker Rogers MD [facility] [place] [address] Lesion of left ulnar nerve Social History [...] as of this encounter Progress Notes * Parker Rogers MD - 07/08/2021 10:45 AM EST Plastic Surgery Hand Follow Up Note Provider: Parker Rogers M.D. I have been asked to see the patient by Ken Andrade CC: Hand numbness HPI: Dallas Scruggs is a 35 y.o. male who presents to clinic to review the results of his most recentMRI. He continues to have the same problem and concern at today's visit. He reports the MRI was unbearable. The pain doesn't stop, it is always constant. Overall, he regrets having the surgery. Examination: There were no vitals taken for this visit. No acute distress Left Upper extremity: L elbow/forearm: short scar at cubital tunnel, +tenderness over the entire scar but most noted at proximal extent of incision line. L hand: No thenar or hypothenar atrohpy, APB intact and strong, no abnormal hand posturing, no signof instrinsic weakness of the hand, well healed endo CTR insicion, tender at incision site without sign of infection. 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 MRI, left upper extremity 1. Normal course and appearance of the ulnar nerve. 2. Normal flexor compartment muscles without findings of denervation change. Impression: Dallas Scruggs is a 35 y.o. male patient s/p left endoscopic and cubital release continues to experience pain, discomfort and finger paresthesia. Reviewed MRI with patient which showed normal findings. Discussed with patient that I would be happy to talk to Dr. Taylor to see if neurolysis and fat grafting around the nerve would offer any support, but I fear that he is at a night risk of not having significant relief from surgery, and would recommend exhausting all effort in pain clinic before any surgery is contemplated. Plan: Refer to Dr. Taylor for fat grafting Referral to Pain Clinic I, Connie Mehta, have performed the documentation for this encounter in the presence of and acting as a scribe for Parker Rogers MD. documented in this encounter Plan of Treatment Scheduled Referrals Name Type Priority Associated Diagnoses Order Schedule Referral to Pain Management Outpatient Referral Routine Lesion of left ulnar nerve Ordered: 07/08/2021 documented as of this encounter Visit Diagnoses Diagnosis Lesion of left ulnar nerve Lesion of ulnar nerve documented in this encounter Care Teams Yoga Coordinator Relationship Specialty Start Date End Date Leslie Briggs, MART [address] [place] [address] PCP - General Family Medicine 05/11/21 08/28/22 documented as of this encounter
--- OUTSIDE RECORDS SUMMARY | 2023-12-20 10:57 | XMS_ITS | Encounter Summary ---
Author Organization [facility] Address [facility] [place] [address] Care Team Providers Care Vp Production Name Role Phone Leslie Briggs APRN Primary Care Provider [phone] Reason for Referral * Consultation (Routine) - Duplicate Referral Specialty Diagnoses / Procedures Referred By Berenice barragan Referred To Contact Diagnoses Carpal tunnel syndrome on left Yousif Taylor MD [facility] [place] [address] Referral ID Status Reason Start Date Expiration Date Visits Requested Visits Authorized [id number] Duplicate Referral Consult, Test & Treat 2 09/03/2022 1 1 Encounter Details Date Type Department Care Team (Late st Contact Info) Description 03/07/2022 Orders [place] [address] [facility] [place] [address] Carpal tunnel syndrome on left Social History [...] Associated Diagnoses Orde r Schedule Referral to Neurology Outpatient Referral Routine Carpal tunnel syndrome on left Ordered: 03/07/2022 documented as of this encounter Visit Diagnoses Diagnosis Carpal tunnel syndrome on left Carpal tunnel syndrome documented in this encounter Care Teams Vp Production Relationship Specialty Start Date End Date Leslie Briggs, MONORAIL CHARGER OPERATOR [address] [place] [address] PCP - General Family Medicine 05/11/21 08/28/22 documented as of this encounter
--- OUTSIDE RECORDS SUMMARY | 2023-12-20 10:57 | XMS_ITS | Encounter Summary ---
[place] [address] Care Team Providers Care Collarette Separator Name Role Phone Leslie Briggs APRN Primary Care Provider [phone] Encounter Details Date Type Department Care Team (Latest Contact Info) Description 08/22/2022 Travel Social History Tobacco Use Types Packs/Day [...] on filedocumented in this encounter Care Teams Collarette Separator Relationship Specialty Start Date End Date Leslie Briggs APRN [address] [facility] [place] [address] PCP - General Family Medicine 05/11/21 08/28/22 documented as of this encounter
--- OUTSIDE RECORDS SUMMARY | 2023-12-20 10:57 | XMS_ITS | Encounter Summary ---
[place] [address] Care Team Providers Care Legal Recruiter Name Role Phone Leslie Briggs APRN Primary Care Provider [phone] Encounter Details Date Type Department Care Team (Latest Contact Info) Description 04/15/2022 Travel Social History Tobacco Use Types Packs/Day [...] on filedocumented in this encounter Care Teams Legal Recruiter Relationship Specialty Start Date End Date Leslie Briggs APRN [address] [facility] [place] [address] PCP - General Family Medicine 05/11/21 08/28/22 documented as of this encounter
--- OUTSIDE RECORDS SUMMARY | 2023-12-20 10:57 | XMS_ITS | Encounter Summary ---
Author Organization [facility] [place] [address] Care Team Providers Care Gas Main And Line Fitter Name Role Phone Demetri Temple Primary Care Provider [phone] Encounter Details Date Type Department Care Team (Latest Contact Info) Description 09/06/2022 3:15 PM EDT TH Visit (TeleHealth) [facility] [place] [address] Loc Arana, MAMMA LOGIST [facility] [place] [address] Ulnar neuropathy at elbow of left upper extremity; Cubital tunnel syndrome on left Social History Tobacco [...] as of this encounter Progress Notes * Loc Arana APRN - 09/06/2022 3:15 PM EDT [facility] [place] [address] Phone: PAIN MANAGEMENT TELEHEALTH FOLLOW UP VISIT NOTE DATE OF VISIT 09/08/2022 Patient Alex Scruggs 1985 REFERRING PROVIDER Yousif Taylor MD [facility] DR PLASTIC SURGERY [place] [id number] PRIMARY CARE PROVIDER EDITH Quick [X] Consent: I introduced and identified myself, received verbal consent from the patient to proceed with this telephone visit and made the patient aware that the same confidentiality and informationsecurity practices apply. [X] I verified the patient's name and, date of , and as well as payer information ID if available. [X] I also verified the following: Patient Location: ( ) Work ( XX) Home ( ) Other: Provider Location: ( XX) Clinic ( ) Home ( ) Other: The patient understands not all conditions can be adequately evaluated and treated through a virtual visit and may require an in-person medical evaluation. The patient understands that there may be co-pay /cost for the visit. Reason for Visit: Alex Scruggs is a 36 y.o. male who is s/p work related injury on 03/10/2021. He is seen for interval follow up onf left wrist and hand pain with numbness. Patient completed the imaging. He has started therapy with OT and it has been found that he has medial epicondylitis. In addition to the elbow pain, the wrist continues to be quite painful and affecting his function. He is going to PT on and OT on Monday. Pain is much worse when his elbow is in flexion. Pain score: 6/10 Pain medications: methadone 10mg TID Patient continues to perform clinician directed home exercises. Patient denies any new neurological symptoms. Denies ataxia, mervin weakness, bladder/bowel complaints. Denies recent hospitalizations since last visit. Denies fever, chills. Past medical, social and family history is unchanged from prior visit Physical Exam: On limited telephonic examination appropriate speech and communication. Constitutional - Ax3 Psychiatric - normal affect , responds normally Respiratory - normal respiratory effort Musculoskeletal - Per report no change from last visit. Neurologic - Alert and oriented x 3 with intact recent memory, attention, concentration, language function, and affect. Speech is fluent and prosodic with no dysarthria appreciated. Per report, able to weight bear, lift legs, bend at hips while standing, toe and heel walk without issues. Imaging Studies: Patient Name: Alex Scruggs Unit #: [id number] Loc: DI Ordering Provider: Loc Arana 21 Status: REG CLI Primary Care Provider: Demetri Temple Date of Exam: 0 08/31/22 Sex: M Admission Date: 08/31/22 : 1985 Age: 36 Exam(s) MR UPPER JOINT LT WO/W EXAM: MR UPPER JOINT LT WO/W CLINICAL HISTORY: ULNAR NEUROPATHY ELBOW LUE,G56.22,?NERVE LOCATION TECHNIQUE: Multiplanar multisequence MRI was performed without intravenous contrast. COMPARISON: MR UPPER EXTREMITIES ADULT from 06/12/2021 CR XR ELBOW LT LIMITED from 08/31/2022 FINDINGS: MARROW: There is no evidence of fracture, bone contusion, nor ominous osseous lesions. ELBOW JOINT: There is no evidence of elbow joint effusion.No significant cartilage loss nor osteochondral defect and there is no evidence of loose intra-articular body. There are no osteophytes. EPICONDYLES: There is signal abnormality and some enhancement seen in the region of the medial epicondyle-common flexor tendon. Consistent with postsurgical changes and possible Patient: ALEX SCRUGGS Exam: MR UPPER JOINT LT WO/W Exam Date: 08-31-2022 10:19 AM Status: Final Page 2 of 3 epicondylitis at this level.. ULNAR COLLATERAL LIGAMENT: The anterior band which extends from the medial epicondyle to the sublime tubercle of the coronoid process of the ulna is intact. This structure is the strongest ligament in the elbow and is the main opponent to severe valgus stress. RADIAL COLLATERAL LIGAMENT: Intact TENDONS: The biceps tendon is intact. The brachialis tendon is intact. The triceps tendon is intact. CUBITAL TUNNEL/ULNAR NERVE: The ulnar nerve appears be in normal position within the cubital tunnel posterior to the medial epicondyle. There is no evidence of arthritic spur arising from the epicondyle nor olecranon causing impingement on the ulnar nerve. There is also no evidence of soft tissue mass nor ganglia on cyst causing impingement at this level. OTHER FINDINGS: IMPRESSION: 1. Ulnar nerve appears to be in satisfactory position within the cubital tunnel. 2. Increased signal in this region may be related to recent surgery and/or element of medial Epicondylitis. [address] [place] [address] Page 1 of 2 Exam: XR ELBOW LT LIMITED Patient: Alex Scruggs Date of : 1985 Gender: Male Exam Date: 08-31-2022 10:10 AM [facility]+00:00 Ordering Physician: LOC ARANA Order #: Status: Final Patient Name: Alex Scruggs Unit #: [id number] Loc: DI Ordering Provider: Loc Arana 21 Status: REG CLI Primary Care Provider: Demetri Temple Date of Exam: 0 08/31/22 Sex: M Admission Date: 08/31/22 : 1985 Age: 36 Exam(s) XR ELBOW LT LIMITED EXAM: XR ELBOW LT LIMITED CLINICAL HISTORY: LT ELBOW PAIN, M25.522,S/P 2 SURGERIES,ULNAR NEUROPATHY AT ELBOW, G56.22. TECHNIQUE: 2D digital imaging was performed. Three views. COMPARISON: CR XR WRIST LT COMP NAVICULAR from 05/11/2020 MR UPPER EXTREMITIES ADULT from 06/12/2021 FINDINGS: BONES: No acute fracture is present. No bony destructive lesion is seen. Small enthesophyte triceps insertion. JOINTS: The elbow is normally aligned. No joint effusion is seen. SOFT TISSUE: Surgical clips medial soft tissues. Small calcifications adjacent to medial epicondyle. IMPRESSION: Postsurgical changes. Assessment Alex Scruggs is a 36 y.o. male seen today for a chief complaint of left upper extremity pain due toCTS and cubital tunnel syndrome. Patient has had two surgeries and continues to have constant pain and functional limitation which he feels has been worsening since the surgery. The imaging showed that patient has epicondylitis which is likely contributing to his pain. He has significant medial tenderness. The pain is much worse with elbow flexion. Xray showed no fractures and the MRI showed thatthe ulnar nerve is in proper position. Patient has started OT and is also continuing with PT. It is important that he be approved to continue with these modalities to improve function and to help retrain the nervous system to re-establishmore normal neural connections. At this time there are no red flag symptoms on history. Patient instructed to go to emergency department if new or worsening neurological symptoms develop. Plan: Patient will continue with PT and OT as scheduled. Once he has reached a plateau, will consider work readiness evaluation. Regarding work release and projection for MMI, I will defer to the patient'sprimary treating provider. This provider is functioning solely in a consultatory capacity. Discussed doing an ulnar nerve block to help assess candidacy for sprint peripheral nerve stimulation. Procedure: Ulnar nerve block Laterality: Left Contrast Required? No Pertinent Medical History - h/o Thrombocytopenia/bleeding tendency/platelet dysfunction: no - h/o Liver disease/abnormal liver function: no - h/o Chronic kidney disease (CKD)/abnormal kidney function: no - Patient on dialysis? no BRITTANY Risk Stratification - Low Is patient taking an anticoagulant? No Is patient taking any NSAIDs/Nutritional Supplements? No Is patient taking Aspirin? No Is patient taking Antibiotics? No Has patient been on greater than 40mg of steroid 14 days or longer or has patient had a steroid injection within the last two weeks? No Does patient have allergies to contrast/local anesthetic/steroid? No Labs? N/A Imaging? In Chart Does patient need IV? no Does patient need sedation? no Does patient need NPO guidelines? no Special Instructions - Booking Time (if different than default time) [address] Sanchez Follow up post procedure - In Person Office Visit 3-4 weeks with Omar Sanchez MD He will continue with medication treatment with his PCP. Patient verbalized agreement of the plan. All of patient's questions were answered to their satisfaction. Time spent on this visit reflects time evaluating the patient pre-visit, during the visit and post-visit. Total time spent 30 minutes by video Phone Visits: PCV12 (5-10 Minutes) PCV13 (11-20 Minutes) PCV14 (21 or > Minutes) Loc Arana APRN Nurse Practitioner [facility] [place] [address] / documented in this encounter Miscellaneous Notes * Addendum Note - Loc Arana APRN - 09/06/2022 3:15 PM EDTAddended by: LOC ARANA on: 09/08/2022 08:37 PM Modules accepted: Orders documented in this encounter Plan of Treatment Not on file documented as of this encounter Visit Diagnoses Diagnosis Ulnar neuropathy at elbow of left upper extremity Cubital tunnel syndrome on left Lesion of ulnar nerve documented in this encounter Care Teams Gas Main And Line Fitter Relationship Specialty Start Date End Date Demetri Temple PA [address] [place] [address] PCP - General Internal Medicine 08/29/22 documented as of this encounter
--- OUTSIDE RECORDS SUMMARY | 2023-12-20 10:57 | XMS_ITS | Encounter Summary ---
Author Organization [facility] [place] [address] Care Team Providers Care Field Crop Farming Supervisor Name Role Phone Kanwal Vaca APRN Primary Care Provider [phone] Encounter Details Date Type Department Care Team (Late st Contact Info) Description 09/15/2020 Telephone [place] [address] Demetri Cervantes Social History Tobacco Use Types Packs/Day Years Used Date Smoking Tobacco: Never Assessed Sex and Gender Information Value Date Recorded Sex Assigned at Male 03/18/2021 10:29 AM EDT Gender Identity Male 03/18/2021 10:29 AM EDT Sexual Orientation Straight 03/18/2021 10 :29 AM EDT documented as of this encounter Miscellaneous Notes * Telephone Encounter - Demetri Cervantes - 09/15/2020 4:59 PM EDT 24 HOUR PH IMPEDANCE CLINICAL SAFETY CHECKLIST 09/15/2020 Demetri Scruggs [address] [facility] [address] [id number] : 1985 REFERRING PROVIDER: AMRIK WALLER V [[id number]] PRIMARY CARE PROVIDER: Kanwal Vaca APRN PRIMARY SYMPTOM (PROCEDURE INDICATION): heartburn SAFETY QUESTIONS FOR THE PATIENT HISTORY OF TRANSSPHENOIDAL OR PITUITARY SURGERY? No IF YES, please inform the patient that the test cannot be scheduled due to safety concerns about testing, and the patient should speak with their provider to consider alternative testing. The senior solutions workflow consultant should also contact the provider's office directly to notify them that we are unable to schedule due to a contraindication to testing. Then, delete the remainder of this checklist and close out thereferral. HISTORY OF NASAL SURGERY IN THE LAST SIX MONTHS? No IF YES: PT CANNOT BE SCHEDULED DUE TO SAFETY CONCERNS until we receive documented clearance by their ENT provider. Then, delete the remainder of this checklist and close out the referral. PLEASE LOOK THIS UP IN THE CHART IN THE PRIOR 12 MONTHS, HAS AN ESOPHAGEAL MANOMETRY BEEN PERFORMED AT [facility]? NO IF NO, please inform the patient that an esophageal manometry will be scheduled at the same time asthe pH impedance test as part of the procedure. A new referral is not needed. Please add the .xmohrem checklist to bottom of this note. QUESTIONS FOR THE PATIENT DIABETIC? No Diabetic patients should speak with their PCP or managing provider at least two weeks before the test to ask what medication or insulin adjustments are needed for testing. If the patient feels ill while fasting due to diabetes, it is OK to have a little apple juice - just enough to feel better. Patients fast 8 hours before testing and the test lasts 1 hour. ALLERGIC TO LIDOCAINE, BENZOCAINE? No (OK to schedule procedure but please document type of allergy if present) BLOOD THINNERS SUCH PLAVIX, COUMADIN, PRADAXA? No (pt does not have to stop any blood thinners for this procedure) DOES THE PATIENT USE A WHEELCHAIR? No VERBAL PATIENT INSTRUCTIONS FOR off-PPI STUDY The written instructions are very important for the patient to review and contain specific dietary and medication instructions prior to testing. These instructions will give the patient the most accurate test result. The patient should speak with their referring provider or our office if they have any questions. For this test, it is important that the patient hold proton pump inhibitors (PPIs) for seven days before testing, but it is OK to use H2-blockers (zantac, ranitidine) up to 24 hours before testing. VERBAL PATIENT INSTRUCTIONS FOR on-PPI STUDY The written instructions are very important for the patient to review and contain specific dietary and medication instructions prior to testing. These instructions will give the patient the most accurate test result. The patient should speak with their referring provider or our office if they have any questions. APPOINTMENT NOTES TEMPLATE Document the correct appointment notes template depending on if an esophageal manometry is also needed. Esophageal manometry with pH impedance: HREM with Ph/IMP on PPI, symptom: heartburn, RMD: AMRIK WALLER V [[id number]], PCP: Kanwal Vaca APRN, wheelchair: No, blood thinners: No, allergy to lidocaine/benzocaine/novocaine: No PLEASE DOCUMENT THE ESOPHAGEAL MANOMETRY CHECKLIST BELOW if you use this template. (At exit, the RMD for appointment notes is the GI provider who saw the patient) documented in this encounter Plan of Treatment Not on file documented as of this encounter Visit Diagnoses Not on filedocumented in this encounter Care Teams Field Crop Farming Supervisor Relationship Specialty Start Date End Date Kanwal Vaca APRN PCP - General 04/20/10 02/15/21 documented as of this encounter
--- OUTSIDE RECORDS SUMMARY | 2023-12-20 10:57 | XMS_ITS | Encounter Summary ---
Author Organization [facility] [place] [address] Care Team Providers Care Radio Performer Name Role Phone Leslie Briggs APRN Primary Care Provider [phone] Encounter Details Date Type Department Care Team (Late st Contact Info) Description 10/22/2021 Telephone [place] [phone] Jazmyn Champion Social History Tobacco Use Types Packs/Day Years [...] encounter Miscellaneous Notes * Telephone Encounter - Jazmyn Champion - 10/22/2021 2:17 PM EDTSummary: Office note Stella left a msg with an addiction provider for this patient. If they call back, please request the most recent office note and let Stella know.. Thank You Jazmyn documented in this encounter Plan of Treatment Not on file documented as of this encounter Visit Diagnoses Not on filedocumented in this encounter Care Teams Radio Performer Relationship Specialty Start Date End Date Leslie Briggs APRN [address] [place] [address] PCP - General Family Medicine 05/11/21 08/28/22 documented as of this encounter
--- OUTSIDE RECORDS SUMMARY | 2023-12-20 10:57 | XMS_ITS | Encounter Summary ---
Author Organization [facility] [place] [address] Care Team Providers Care Immigration Officer Name Role Phone Cynthia Briggsh MART Primary Care Provider [phone] Reason for Referral * Physical Therapy (Routine) - Closed Specialty Diagnoses / Procedures Referred By Contac t Referred To Contact Occupational Therapy Diagnoses Ulnar neuropathy at elbow of left upper extremity Marianna Arana APRN [facility] [place] [place] [address] Referral ID Status Reason Start Date Expiration Date V isits Requested Visits Authorized [id number] Closed Evaluate and Treat 08/23/2022 02/19/2023 12 12 Reason for Visit * Consultation (Routine) - Closed Specialty Diagnoses / Procedures Referred By Contac t Referred To Contact [facility] Sp[facility] Center Diagnoses Pain- chronic pain status post L carpal and cubital tunnel nerve releases 09/2021/ ? pain mgmt options Procedures Left arm, chronic pain status post carpal and cubital tunnel nerve releases. Please evaluate and treat Yousif Taylor MD [facility] [place] [address] [facility] [place] [address] Referral ID Status Reason Start Date Expiration Date V isits Requested Visits Authorized [id number] Closed Evaluate and Treat 05/19/2022 05/19/2023 1 1 Encounter Details Date Type Department Care Team (Late st Contact Info) Description 08/23/2022 10:45 AM EDT Office Visit [facility] [place] [address] Marianna Arana APRN [facility] [place] [address] Left wrist pain; Cubital tunnel syndrome on left; Ulnar neuropathy at elbow of left upper extremity; Pain in left elbow Social History Tobacco Use Types Packs/Day Years [...] Sign Reading Time Taken Comments Blood Pressure 138/83 08/23/2022 10:34 AM EDT Pulse 72 08/23/2022 10:34 AM EDT Temperature - - Respiratory Rate - - Oxygen Saturation 100% 08/23/2022 10:34 AM EDT Inhaled Oxygen Concentration - - Weight - - Height - - Body Mass Index - - documented in this encounter Progress Notes * Marianna Arana APRN - 08/23/2022 10:45 AM EDT Images from the original note were not included. [facility] [place] [address] Phone: [facility] HPI: Dallas Scruggs is a 36 y.o. male who is s/p work related injury on 03/10/2021. 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 Patient is seen in referral today upon the request of Yousif Taylor for consultation and treatment of left wrist and hand pain with numbness. Was seen at [facility] and had surgery (left carpal and cubital tunnel releases) with Ken Andrade. Had no improvement. He had a revision surgery on 10/08/21. With Dr. Taylor which also did not improve his symptoms. Patient had an BRENT visit with Dr. Avelar. The notes from which are not available to me at the time of this visit. Follow up EMG/NCV showed persistent neuropathy. A new MRI has not been done since patient's last surgery. Description: Ripping pain, nagging, aching, stabbing. Weakness, numbness, tingling:has tingling and numbness along medial epicondyle down arm. Alleviating factors: Methadone 10mg TID Aggravating factors: use of hand. Pain today: 11/05 Current Medications for pain: methadone 10mg TID Function: unable to open jars, unable to open some door handles. Any activity requiring the use of his left hand aggravates the symptoms. Conservative Treatment: Physical Therapy: physical therapy. Home Exercise Program: yes Medications: gabapentin, lyrica, tylenol, umable to take NSAIDs, suboxone Other: None Injections: None Employment: Has not returned to work since injury ROS No bowel or bladder changes, weight loss, fever, chills, chest pain, SOB Sleeps Poorly. Wakes with pain. Unable to sleep on side. 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 Vapes marijuana for sleep reports that he quit smoking about 7 years ago. His smoking use included cigarettes. He has never used smokeless tobacco. Physical Examination: Wt Readings from Last 1 Encounters: 10/08/21 64.4 kg (142 lb) BMI Readings from Last 1 Encounters: 10/08/21 20.37 kg/m?? Patient Vitals for the past 24 hrs: Pulse BP SpO2 08/23/22 1034 72 138/83 100 % Appearance/ Behavior Well groomed, good eye contact, relaxed, cooperative, normal speech, no acute distress, no involuntary movements Lungs Respirations unlabored Cardiovascular Bilateral upper extremities warm and dry, pulses present and symmetrical. Skin No rash, asymmetric hair loss, bruises, swelling, incisional scars well healed. Musculoskeletal Inspection/Palpation/ Range of Motion/Facet Loading maneuvers Gait: Normal. No assistive device Inspection: No hair or skin changes, No discoloration ROM: Painful ROM elbow and wrist in all planes. Cervical spine ROM intact. Palpation: no allodynia, temperature symmetrical. No cervical paraspinal muscle tenderness. Neuro Motor Strength Segment Muscle Action Bilateral Results C5 Detoid Shoulder abduction 5/5 C5 Biceps Elbow flexion Left 4/5 C6 Extensor carpi radialis Wrist extension Left 4/5 C7 Triceps Elbow extension Left 4/5 C8, T1 Hand intrinsics Grasp Left 3/5 Reflexes: Segment Tendon Bilateral C5 Biceps 2+ C6 Brachioradialis 2+ C7 Triceps 2+ Sensory Exam: dec sensation fingers. Imaging and Test Review: MRI upper extremity non joint w/o contrast. 06/14/2021 Normal course and appearance of ulnar nerve Normal flexor compartment muscles wtihout findings of denervation change. Medical Decision Making: Dallas Scruggs is a 36 y.o. male seen today for a chief complaint of left upper extremity pain due toCTS and cubital tunnel syndrome. Patient has had two surgeries and continues to have constant pain and functional limitation which he feels has been worsening. MRI has not been done since the latest surgery and would be helpful in determining whether peripheral nerve stimulation might be possible treatment option. I spent a total of 45 minutes on the day of this encounter meeting with the patient and reviewing documentation/coordinating care as described in this note. No procedures were performed at today's visit. Diagnosis: ICD-10-CM 1. Left wrist pain M25.532 2. Cubital tunnel syndrome on left G56.22 Plan Imaging: ?? MRI left upper extremity non joint w/ and w/o contrast ?? XR elbow 2 views, Left. ?? Physical Medicine: ?? Referral to Occupational therapy to improve patient's function. ?? Medications: ?? No change. ?? Recommend monitoring QTc if patient is to be continued on methadone ?? Caution regarding interaction with combination of klonopin with methadone. Discussed this with patient. Interventions: ?? Will consider ulnar nerve block under ultrasound guidance once imaging has been completed. If this is effective, may consider Sprint PNS. Lifestyle Medicine: ?? Curable su and Recognize su suggested. Recognize ?? su is for GMI. ?? Patient may benefit from pain neuroscience education and further PT with a specialist in neuropathic pain. Basic pain neuroscience discussion was had with patient. Follow up: after imaging has been completed. May be via telehealth due to distance patient lives from the center. Completed w/c paperwork. CC: Leslie Briggs APRN Referring Provider: Yousif Arana APRN 08/23/2022 [facility] documented in this encounter Plan of Treatment Scheduled Referrals Name Type Priority Associated Diagnoses Orde r Schedule Referral to Physical Therapy Outpatient Referral Routine Ulnar neuropathy at elbow of left upper extremity Ordered: 08/23/2022 documented as of this encounter Visit Diagnoses Diagnosis Left wrist pain Pain in joint, forearm Cubital tunnel syndrome on left Lesion of ulnar nerve Ulnar neuropathy at elbow of left upper extremity Pain in left elbow Pain in joint, upper arm documented in this encounter Care Teams Immigration Officer Relationship Specialty Start Date End Date Leslie Briggs APRN [address] [place] [address] PCP - General Family Medicine 05/11/21 08/28/22 documented as of this encounter
--- OUTSIDE RECORDS SUMMARY | 2023-12-20 10:57 | XMS_ITS | Encounter Summary ---
Author Organization [facility] Address [facility] [place] [address] Care Team Providers Care Regulatory Product Manager Name Role Phone Leslie Briggs APRN Primary Care Provider [phone] Encounter Details Date Type Department Care Team (Late st Contact Info) Description 03/07/2022 Telephone [place] [phone] Allyssa Ho Social History Tobacco Use Types Packs/Day Years [...] encounter Miscellaneous Notes * Telephone Encounter - Allyssa Ho - 03/07/2022 9:22 AM EDT ----- Message from Allyssa Ho sent at 03/07/2022 9:20 AM EDT ----- Regarding: FW: Appointment Request Contact: Spoke to patient, Neurology is reviewing his referral for EMG and they will call him to schedule the test. We will then call to schedule follow-up with Dr Bentley as I am not sure the timeframe that they will get him in for EMG test. ----- Message ----- From: Allyssa Ho Sent: 03/07/2022 9:17 AM EDT To: Allyssa Ho Subject: FW: Appointment Request Pt may need help setting up EMG-they may need to schedule with him themselves ----- Message ----- From: Dallas Scruggs Sent: 03/07/2022 7:18 AM EDT To: [facility] Plastic Surgery Web Publisher Subject: Appointment Request Appointment Request From: Dallas Scruggs With Provider: NANCY BENTLEY MD [Plastic Surgery at [facility]] Preferred Date Range: Any Preferred Times: Any Time Reason for visit: Emg Comments: Find out why arm still hurts and why it???s going numb again. documented in this encounter Plan of Treatment Not on file documented as of this encounter Visit Diagnoses Not on filedocumented in this encounter Care Teams Regulatory Product Manager Relationship Specialty Start Date End Date Leslie Briggs, MART [address] [place] [address] PCP - General Family Medicine 05/11/21 08/28/22 documented as of this encounter
--- OUTSIDE RECORDS SUMMARY | 2023-12-20 10:57 | XMS_ITS | Encounter Summary ---
Author Organization [facility] Address [facility] [place] [address] Care Team Providers Care Preventive Medicine Officer Name Role Phone Leslie Briggs APRN Primary Care Provider [phone] Reason for Visit * Reason Comments Follow Up Surgery Encounter Details Date Type Department Care Team (Late st Contact Info) Description 01/24/2022 8:30 AM EDT Office [place] [address] Yousif Bentley MD [facility] [place] [address] Surgery follow-up Social History Tobacco Use Types [...] encounter Progress Notes * Connie Mehta - 01/24/2022 8:30 AM EDT Plastic Surgery Follow Up Note Provider: Yousif Bentley M.D. Date of Surgery: 10/08/21 Procedure(s): left carpal and cubital tunnel, medial epicondylectomy, fat grafting Complications: None Reported HPI: Patient returns to clinic for a follow up visit. He reports that every morning his pain is at a 4 or 5/10. He admits to having stiffness each morning as well. He has pain in his elbow. He denieshaving numbness. He is unable to fully extend his arm. He has been working with PT. He notes frustration with his symptoms. Examination: Patient is alert, conversant, comfortable, ambulating Left upper extremity Incision well healed Improved feeling in ulnar and median distribution 4/5 abduction of fingers 4/5 FDP of ring and little fingers 4/5 FCU +tinel's at medial epicondyle Impression: Dallas Scruggs is a 36 y.o. male who was seen today for follow-up. Recommend he keep his elbow quiet to allow it to heal more. Increase PT. Workers comp paperwork completed in clinic today. The patient was provided with a copy of the report. Plan: Increase PT. Follow up in 1 month. IDevorah, have performed the documentation for this encounter in the presence of and acting as a scribe for YOUSIF BENTLEY MD. documented in this encounter Plan of Treatment Not on file documented as of this encounter Visit Diagnoses Diagnosis Surgery follow-up Follow-up examination, following unspecified surgery documented in this encounter Care Teams Preventive Medicine Officer Relationship Specialty Start Date End Date Leslie Briggs APRN [address] [place] [address] PCP - General Family Medicine 05/11/21 08/28/22 documented as of this encounter
--- OUTSIDE RECORDS SUMMARY | 2023-12-20 10:57 | XMS_ITS | Encounter Summary ---
Author Organization [facility] Address [facility] [place] [address] Care Team Providers Care Termite Technician Name Role Phone SofiyaLeslie meehan MART Primary Care Provider [phone] Reason for Visit * Auth/Cert Specialty Diagnoses [...] Expiration Date Visits Re quested Visits Authorized [id number] 1 1 Encounter Details Date Type Department Care Team (Late st Contact Info) Description 10/08/2021 2:47 PM EDT - 10/08/2021 5:32 PM EDT Surgery [place] [address] Yousif Bentley MD [facility] [place] [address] MEDIAN NERVE DECOMPRESSION (CARPAL TUNNEL RELEASE) (WRVU 4.97) Social History Tobacco Use Types Packs/Day Years [...] Sign Reading Time Taken Comments Blood Pressure 138/98 10/08/2021 2:03 PM EDT Pulse 97 10/08/2021 2:03 PM EDT Temperature 38.2 ??C (100.8 ??F) 10/08/2021 2:03 PM E DT Respiratory Rate 18 10/08/2021 2:03 PM EDT Oxygen Saturation 98% 10/08/2021 2:03 PM EDT Inhaled Oxygen Concentration - - [...] about scheduling, please contact our administrative officesat [phone] For clinical questions, please call our nurses at [phone] Both offices are open Monday thru Monday 8a - 5p. With emergencies after hours, call the hospital can closing machine operator at [phone] and ask for the Plastic Surgery Resident adoption social worker. documented in this encounter Medications at Time [...] by Connie Mehta on behalf of Dr. Betnley on 08/05/21. Reports allergies to sulfa antibiotics. [...] Operative Note Patient Name: Dallas Scruggs : [id number] MR#: [id number] Case Date: 10/08/2021 Surgeon: Surgeon(s) and Role: [...] Center 10/22/2021 9:40 AM Stella Bran APRN [facility] [address] [place] [address] * Op Note - Yousif Bentley MD - 10/08/2021 3:51 PM EDT [facility] Operative Note Patient Name: Dallas Scruggs : [id number] MR#: [id number] Case Date: 10/08/2021 Surgeon: Surgeon(s) and Role: [...] Diagnosis Comments Revise Ulnar Nerve At Elbow (81003) Yes 10/08/2021 3:20 PM EDT Carpal tunnel syndrome on left Revise Median N/Carpal Tunnel Surg (51349) Yes 10/08/2021 3:20 PM EDT Carpal tunnel syndrome on left MEDIAN NERVE DECOMPRESSION (CARPAL TUNNEL RELEASE) Routine 10/08/2021 1:42 PM EDT Carpal tunnel syndrome on left NEUROPLASTY &/OR TRANSPOSITION, ULNAR NERVE AT ELBOW Routine 10/08/2021 1:42 PM EDT Carpal tunnel syndrome on left documented in this encounter Visit Diagnoses Diagnosis Carpal tunnel syndrome on left Carpal tunnel syndrome Carpal tunnel syndrome on left Carpal tunnel syndrome documented in this encounter Administered Medications Inactive Administered Medications - up to 3 most recent administrations Medication Order MAR Action Action Date Dose Rate Site BUpivacaine (pf) (Marcaine) (7.5 mg/mL) 0.75% injection ONCE PRN, Starting on Mon10/08/21 at 1707, Until Mon10/08/21 at 2051, Intra-Operative (Intra-Procedure), Routine Given 10/08/2021 5:07 PM EDT 10 mLs 19- Surgical Site HYDROmorphone (Dilaudid) (0.2 mg/1 mL) injection [...] 1823, Until Mon10/08/21 at 2051, Pain, Routine Given 10/08/2021 6:27 PM EDT [...] Until Mon10/08/21 at 205, Intra-Operative (Intra-Procedure), Routine 1707 (Given - Provid er: Yousif Bentley MD) [...] 1814 (Given - Provid er: Lesly Cardenas RN)1829 (Given - Provider: Lesly Cardenas RN) oxyCODONE (Roxicodone) tablet 10 mg 10 mg, Oral, EVERY 4 HOURS PRN, Starting on Mon10/08/21 at 1823, Until Mon10/08/21 at 205, Pain, Routine 1826 (Given - Provid er: Lesly Cardenas RN) [...] Routine documented in this encounter Care Teams Termite Technician Relationship Specialty Start Date End Date Leslie Briggs, SACK DEPARTMENT SUPERVISOR [address] [place] [address] PCP - General Family Medicine 05/11/21 08/28/22 documented as of this encounter
--- OUTSIDE RECORDS SUMMARY | 2023-12-20 10:57 | XMS_ITS | Encounter Summary ---
Author Organization [facility] Address [facility] [place] [address] Care Team Providers Care Button Breaker Operator Name Role Phone Leslie Briggs APRN Primary Care Provider [phone] Reason for Visit * Reason Comments Follow Up Surgery Encounter Details Date Type Department Care Team (Late st Contact Info) Description 08/05/2021 1:45 PM EST Office [place] [address] [facility] [address] [place]IC [place] [address] Lesion of left ulnar nerve; Carpal tunnel syndrome on left Social History [...] AM EDT documented as of this encounter Patient Instructions * Patient Instructions* Annette Burns RN - 08/05/2021 2:18 PM EST Preoperative Instructions You have been scheduled to have plastic surgery. The instructions below are specific to your procedure. If you are a smoker, we ask that you stop at least 2 months prior to your surgical date and remain nicotine free for at least a month after surgery. Smoking can impair healing and increase your chance of infection. Two Weeks prior to Surgery Do not take any Aspirin or aspirin containing products for the 2 weeks leading up to surgery. You may resume taking 48 hours after surgery. Do not take medications containing Ibuprofen. Do not take any anti-steroidal's such as Advil, Aleve, Celebrex, Daypro, Indocin, Midol, Motrin, Naproxen, Nuprinand Toradol. These medications increase your risk of bleeding. You may resume taking any of these medications 48 hours after surgery. Stop Vitamin E, Garlic supplements, Ginseng, Fish Oil tablets, Ginkgo and Enmanuel's Wort and any other herbals. You may resume taking 48 hours after surgery. If you need medication for pain, you may take Tylenol or extra strength Tylenol during this two week period. One Week prior to Surgery Please call if you feel ill, have cold or fever, have a rash or breaks in the skin near your surgical site. Stay hydrated. Avoid alcohol and recreational drugs Three Days before Surgery Do not shave near your surgical site One Day before Surgery Hand Surgery - Scrub your hand with an antibacterial soap for several minutes the night before and morning of surgery. Trim your fingernails and scrub them with a nail brush. DO NOT wear any rings, nail estonian or artifical nails. The Same Day Surgery Team will call you the business day before your surgery to give you instructions specific to your procedure and your surgical time. Generally, you will be asked not to eat any solids after midnight. You are allowed clear liquids (water, geo daniele, apple juice, black coffee andplain tea) until 2 hours prior to your surgery. Day of Surgery A medical delivery driver is required at time of discharge. If you are a Same Day procedure and do not have a driveryour surgery will be canceled. DO NOT wear any jewelry, makeup or artificial nails the day of surgery. DO NOT apply any lotions, powders or deodorants on or near the surgical site the day of surgery. Do wear comfortable, loose fitting clothes. Anesthesia will meet with you the morning of surgery. They will perform an assessment and review your history with you. Contact Information: During regular office hours (Monday- Monday, non-holiday 8:00 am- 5:00 pm) For an appointment or insurance questions For questions pertaining to your surgical date [phone] For nursing related questions [phone] On weekends, holidays or after office hours: Call [phone] and ask the poacher operator to page the Plastic Surgery Resident sap treasury consultant. documented in this encounter Progress Notes * Connie Mehta - 08/05/2021 1:45 PM EST Plastic Surgery Hand Follow Up Note Provider: Yousif Bentley M.D. I have been asked to see the patient by Parker Rogers. CC: Hand numbness HPI: Dallas Scruggs is a 35 y.o. male who presents to clinic to discuss proceeding with fat grafting.Patient had a left endoscopic carpal and open cubital release back in June [address] Andrade. He reports that the pain is mostly located to the medial elbow but also at the endo incision site at the left wrist Examination: There were no vitals taken for this visit. No acute distress + tinel's left elbow and wrist + compression test + phalens test Numbness in long, ring, and little fingers No numbness in dorsum of hand 5/5 abduction 3/5 abduction fingers 3/5 first dorsal interosseous 4/5 flexion of flexor ring and little FDP 3/5 flexor carpi ulnaris Diagnostic Testing: EMG from 03/18/21 Abnormal study [...] to experience pain, discomfort and finger paresthesia. We discussed that I would re-release the nerves again, but in a different way. I would also add fatgrafting to help cushion the nerve. Plan: Schedule surgery. Surgical Grid Dr Bentley Duration: 2 hours Timeframe: next available Coordinated with: N/A Procedure: carpal and cubital tunnel, medial epicondylectomy, fat grafting, CPT: 74283, 49979, [address] Surgical site: wrist and elbow Side: left Anesthesia: General Follow up: Days PAT: H+P DOS Implants needed: mini c-arm, 50cc's puregraft, hong cannulas, tumesecent Bone wax, logan rodrigez, bone rasp I, [facility], have performed the documentation for this encounter in the presence of and acting as a scribe for YOUSIF BENTLEY MD. documented in this encounter Plan of Treatment Not on file documented as of this encounter Visit Diagnoses Diagnosis Lesion of left ulnar nerve Lesion of ulnar nerve Carpal tunnel syndrome on left Carpal tunnel syndrome documented in this encounter Care Teams Button Breaker Operator Relationship Specialty Start Date End Date Leslie Briggs, TRAIN CLERK [address] [place] [address] PCP - General Family Medicine 05/11/21 08/28/22 documented as of this encounter
--- OUTSIDE RECORDS SUMMARY | 2023-12-20 10:57 | XMS_ITS | Encounter Summary ---
Author Organization [facility] [place] [address] Care Team Providers Care Nurse Behavioral Health Care Name Role Phone Leslie Briggs APRN Primary Care Provider [phone] Reason for Referral * Consultation (Routine) - Closed Specialty Diagnoses / Procedures Referred By Berenice barragan Referred To Contact Neurology Diagnoses Surgery follow-up Yousif Bentley MD [facility] [place] [address] [facility] [address] [place] [address] Referral ID Status Reason Start Date Expiration Date V isits Requested Visits Authorized [id number] Closed Test Only 02/28/2022 02/28/2023 1 1 Reason for Visit * Reason Comments Follow Up Surgery Tingling has returne d since PT - has new numbness Encounter Details Date Type Department Care Team (Late st Contact Info) Description 02/28/2022 8:30 AM EDT Office [place] [phone] Yousif Bentley MD [facility] [place] [address] Surgery follow-up Social History Tobacco Use Types [...] Progress Notes * Yousif Bentley MD - 02/28/2022 8:30 AM EDT Plastic Surgery Follow Up Note Provider: Yousif Bentley M.D. Date of Surgery: 10/08/21 Procedure(s): left carpal and cubital tunnel, medial epicondylectomy, fat grafting Complications: None Reported HPI: Patient returns to clinic for a follow up visit. He presents with tingling on his thumb, ring and small fingers. He was seeing OT but has since discontinued. He complains that over the last month he has been experiencing significant paresthesia. Saw some improvement with his elbow ROM. No painin the hand but 3-5 in the arm. Examination: Patient is alert, conversant, comfortable, ambulating Left upper extremity Incision well healed Full ROM Normal feeling index and long 80 thumb 5/5 abduction thumb 4/5 finger abduction 4/5 FDI 4/5 FDP ring and little 5/5 FCU +tinels at the left elbow Impression: Dallas Scruggs is a 36 y.o. male who was seen today for follow-up. Possible re occurrenceof carpal and cubital tunnel. Will proceed with EMG Plan: Proceed with EMG Follow up after test. Connie Cottrell, have performed the documentation for this encounter in the presence of and acting as a scribe for YOUSIF BENTLEY MD. documented in this encounter Plan of Treatment Scheduled Referrals Name Type Priority Associated Diagnoses Orde r Schedule Referral to Neurology Outpatient Referral Routine Surgery follow-up Ordered: 02/28/2022 documented as of this encounter Visit Diagnoses Diagnosis Surgery follow-up Follow-up examination, following unspecified surgery documented in this encounter Care Teams Nurse Behavioral Health Care Relationship Specialty Start Date End Date Leslie Briggs, BUSINESS EDUCATION TEACHER [address] [place] [address] PCP - General Family Medicine 05/11/21 08/28/22 documented as of this encounter
--- OUTSIDE RECORDS SUMMARY | 2023-12-20 10:57 | XMS_ITS | Encounter Summary ---
Author Organization [facility] Address [facility] [place] [address] Care Team Providers Care Oil Rig Roughneck Name Role Phone Demetri Temple Primary Care Provider [phone] Encounter Details Date Type Department Care Team (Late st Contact Info) Description 08/29/2022 Telephone Care Management [facility] [place] [address] Radha Reinoso [facility] [place] [address] Social History Tobacco Use Types Packs/Day Years [...] encounter Miscellaneous Notes * Telephone Encounter - Radha Reinoso MSW - 08/29/2022 12:59 PM EDT Workers Compensation Demographics: Insurance: Khadra claim # [id number] DOI: 03-12-20 Silverlight Developer: Amanda Nelson Employer: [employer] [facility] claim CCM consulted by [facility] [place] pain and spine audio visual secretary: Rosangela, requesting help w/ needed PA for OSH4-5-23 MRI at [facility]. CCM phoned pt to secure wc machine adjuster leader contact and claim # but he was driving and could only give me the name of : Amanda Nelson. [facility] phoned medical setting, speaking w/ Asha in Radiology # [phone], fax # [phone] whom provided me w/ the wc machine adjuster leader phone number and claim #. [facility] phoned [place] machine adjuster leader: Amanda Nelson to relay need for PA or MRI scheduled on 08-31-22 at [facility], providing her w/ the contact name: Asha and fax # of this MRI setting, and relaying plan to fax her [facility] for pain and spine provider's 08-23-22 office note and wc form, detailing medical necessity of the MRI and other tx plan recommendations. Requested PA be faxed to [facility] iván in order to avoid having to cancel the 08-31-22 MRI. [facility] phoned pt s/p call to [place] wc machine adjuster leader relaying the above and hoping they render the PA for the MRI in time. Pt thanked [facility] for her assistance. P: [facility] will fax Marianna Arana APRN wc form and 08-23-22 office note on 08-29-22 and be available for f/u intervention PRN. documented in this encounter Plan of Treatment Not on file documented as of this encounter Visit Diagnoses Not on filedocumented in this encounter Care Teams Oil Rig Roughneck Relationship Specialty Start Date End Date Demetri Temple PA [address] [place] [address] PCP - General Internal Medicine 08/29/22 documented as of this encounter
--- OUTSIDE RECORDS SUMMARY | 2023-12-20 10:57 | XMS_ITS | Encounter Summary ---
Author Organization [facility] [place] [address] Care Team Providers Care Senior Java Ui Developer Name Role Phone Demetri Temple Primary Care Provider Encounter Details Date Type Department Care Team (Late st Contact Info) Description 08/29/2022 Telephone [place] [phone] Malaika Baptiste, RN Social History Tobacco Use [...] Telephone Encounter - Malaika Baptiste, RN - 08/29/2022 1:43 PM EDT Opened in error documented in this encounter Plan of Treatment Not on file documented as of this encounter Visit Diagnoses Not on filedocumented in this encounter Care Teams Senior Java Ui Developer Relationship Specialty Start Date End Date Demetri Temple PA [address] [place] [address] PCP - General Internal Medicine 4/3/23 documented as of this encounter
--- OUTSIDE RECORDS SUMMARY | 2023-12-20 10:57 | XMS_ITS | Encounter Summary ---
Author Organization [facility] [place] [address] Care Team Providers Care Brim Presser Name Role Phone Leslie Briggs APRN Primary Care Provider Encounter Details Date Type Department Care Team (Late st Contact Info) Description 11/26/2021 10:15 AM EDT Office [place] [address] Yousif Bentley MD [facility] [place] [address] Surgery follow-up Social History Tobacco Use Types [...] Progress Notes * Yousif Bentley MD - 11/26/2021 10:15 AM EDT Plastic Surgery Follow Up Note Provider: Yousif Bentley M.D. Date of Surgery: 10/08/21 Procedure(s): left carpal and cubital tunnel, medial epicondylectomy, fat grafting ([place]) Complications: None Reported HPI: Patient returns to clinic for a follow up visit. He denies no pain, no tingling sensation but continues to have DROM, limited ROM. He has not seen OT up to this point in time but is scheduled to see them next week. He has hyper sensitivity to his incision line especially when he scratches over the area. Examination: Patient is alert, conversant, comfortable, ambulating Left upper extremity Incision well healed on wrist and elbow Normal feeling in all fingers median and ulnar distrubution 5/5 abduction of thumb 5/5 abduction of fingers 5/5 FDP ring and little 4/5 FCU +tinels wrist and elbow that goes to the small finger. Limited ROM of wrist with 30 degress ext and 45 with flexion Elbow- Lacks 30 degrees extension at the elbow. Impression: Dallas Scruggs is a 35 y.o. male who was seen today for follow-up after the above procedure. Please see the operative note for details. Overall, seeing good progress but he will need to proceed with OT starting next week. I reassured patient that with therapy he should be able to regain most of his ROM. Plan: Follow up in one month. Start OT next week going 3 times a week IConnie, have performed the documentation for this encounter in the presence of and acting as a scribe for YOUSIF BENTLEY MD. documented in this encounter Plan of Treatment Not on file documented as of this encounter Visit Diagnoses Diagnosis Surgery follow-up Follow-up examination, following unspecified surgery documented in this encounter Care Teams Brim Presser Relationship Specialty Start Date End Date Leslie Briggs, MART [address] [place] [address] PCP - General Family Medicine 05/11/21 08/28/22 documented as of this encounter
--- OUTSIDE RECORDS SUMMARY | 2023-12-20 10:57 | XMS_ITS | Encounter Summary ---
Author Organization [facility] [place] [address] Care Team Providers Care Microfilm Technician Name Role Phone Demetri Temple Primary Care Provider [phone] Encounter Details Date Type Department Care Team (Late st Contact Info) Description 03/10/2021 Tele[place] [phone] Bob Obregon MD [facility] [place] [address] Social History Tobacco Use Types Packs/Day Years [...] encounter Miscellaneous Notes * Telephone Encounter - Rufina Mora - 03/10/2021 11:10 AM EDT Relayed message to exit sales demonstrator * Telephone Encounter - Sharon Ambrose - 03/10/2021 10:40 AM EDT Patients work comp director case called to inform us that this patient needs a Release of information form given to him after his appointment at 11. documented in this encounter Plan of Treatment Not on file documented as of this encounter Visit Diagnoses Not on filedocumented in this encounter Care Teams Microfilm Technician Relationship Specialty Start Date End Date Demetri Temple PA PCP - General Internal Medicine 02/16/21 05/10/21 documented as of this encounter
--- OUTSIDE RECORDS SUMMARY | 2023-12-20 10:57 | XMS_ITS | Encounter Summary ---
Author Organization [facility] Address [facility] [place] [address] Care Team Providers Care Shuttle Buggy Operator Name Role Phone SofiyaLeslie meehan MART Primary Care Provider [phone] Encounter Details Date Type Department Care Team (Late st Contact Info) Description 10/12/2021 9:40 AM EDT TH Visit (TeleHealth) [place] [address] Stella Bran APRN [facility] [place] [address] Surgery follow-up Social History Tobacco Use Types [...] Progress Notes * Stella Bran APRN - 10/12/2021 9:40 AM EDT Plastic Surgery Follow Up Note (Telephone-patient unable to get ride into [facility]) Provider: Stella Bran APRN Date of Surgery: 10/08/21 Procedure(s): Carpal Tunnel Release (Taylor) Complications: None Reported HPI: Patient reports that his hands are still tingling and his fingers are ice cold. He has a lot of pain on the top part of his arm. Advised him to remove his JAVY wrap and rest arm on a pillow without straightening arm. Contacted patient about an hour later. Patient reports some symptoms relief with this. He will continue to monitor closely. Examination: No examination due to telephone appointment. Impression: Dallas Scruggs is a 35 y.o. male patient s/p left carpal and cubital release. JAVY compressive. Patient encouraged to come in our office multiple times. He declined. States he will contact our office if he gets worse. States he does plan to come for his scheduled fu. Plan: Follow up 10/22 documented in this encounter Plan of Treatment Not on file documented as of this encounter Visit Diagnoses Diagnosis Surgery follow-up Follow-up examination, following unspecified surgery documented in this encounter Care Teams Shuttle Buggy Operator Relationship Specialty Start Date End Date Leslie Briggs APRN [address] [place] [address] PCP - General Family Medicine 05/11/21 08/28/22 documented as of this encounter
--- OUTSIDE RECORDS SUMMARY | 2023-12-20 10:57 | XMS_ITS | Encounter Summary ---
Author Organization [facility] [place] [address] Care Team Providers Care Naval Aircrewman Mechanical Name Role Phone Demetri Temple Primary Care Provider [phone] Reason for Visit * Auth/Cert (Routine) Specialty Diagnoses / Procedures Referred By Contac t Referred To Contact Diagnoses ulnar neuropathy Procedures PRO INJECTION ANES AGENT &/OR STEROID OTHER PERIPHERAL NERVE/BRANCH PRG US GUIDANCE NEEDLE PLACEMENT IMG S&I NERVE BLOCK, OTHER PERIPHERAL NERVE OR BRANCH (WRVU 0.75) Ultrasound Guidance (resource) (43343) Omar Sanchez MD [facility] [place] [address] [facility] Referral ID Status Reason Start Date Expiration Date Visits Re quested Visits Authorized [id number] 1 1 Encounter Details Date Type Department Care Team (Late st Contact Info) Description 09/28/2022 10:30 AM EDT - 09/28/2022 11:30 AM EDT [place] [address] Omar Sanchez MD [facility] [place] [address] Not Performed NERVE BLOCK, OTHER PERIPHERAL NERVE OR BRANCH (WRVU 0.75) Social History Tobacco Use Types Packs/Day Years [...] forearm and wrist pain HPI: Subjective Dallas Scruggs is a 36 y.o. male who presents [...] and wrist pain PAIN LEVEL AT REST 01/05 PAST MEDICAL HISTORY: No past medical history on file. There are no medical history contraindications to this procedure. PAST SURGICAL HISTORY: Past Surgical History: Procedure Laterality Date ??? PRO REVISE MEDIAN N/CARPAL TUNNEL SURG Left 10/08/2021 MEDIAN NERVE DECOMPRESSION (CARPAL TUNNEL RELEASE) (WRVU 4.97) performed by Yousif Taylor MD at [facility] OR ??? PRO REVISE ULNAR NERVE AT ELBOW Left 10/08/2021 NEUROPLASTY &/OR TRANSPOSITION, ULNAR NERVE AT ELBOW (WRVU 7.26) performed by Yousif Taylor MD at [facility] OR There are no past surgical contraindications [...] Wayne Sanchez MD, [facility] Pain Medicine Fellow [address] [address] / [facility] documented in this encounter Plan of Treatment [...] at elbow of left upper extremity- Primary Ulnar neuropathy at elbow of left upper extremity documented in this encounter Care Teams Naval Aircrewman Mechanical Relationship Specialty Start Date End Date Demetri Temple PA [address] [place] [address] PCP - General Internal Medicine 08/29/22 documented as of this encounter
--- OUTSIDE RECORDS SUMMARY | 2023-12-20 10:57 | XMS_ITS | Encounter Summary ---
Author Organization [facility] [place] [address] Care Team Providers Care Population Health Coach Name Role Phone Demetri Temple Primary Care Provider [phone] Encounter Details Date Type Department Care Team (Late st Contact Info) Description 08/31/2022 12:05 AM EDT Ancillary Procedure [place] [phone] Demetri Temple PA [facility] [address] [facility] [address] [place] [address] Social History Tobacco Use Types Packs/Day Years [...] Associated Diagnosis Comments FILM LIBRARY STORAGE ONLY MR UPPER EXTREMITY Routine 08/31/2022 12:05 AM EDT documented in this encounter Results * Film Library- Storage Only MR Upper Extremity (08/31/2022 12:05 AM EDT) Narrative [facility] - 09/02/2022 11:31 AM EDT This exam is auto-finalizing. It's purpose is for storage only. Demetri SHARMA IMStoney FILM LIBRARY ORD ERABLES [facility] [place], [place] documented in this encounter Visit Diagnoses Not on filedocumented in this encounter Care Teams Population Health Coach Relationship Specialty Start Date End Date Demetri Temple PA [address] [place] [address] PCP - General Internal Medicine 08/29/22 documented as of this encounter
--- OUTSIDE RECORDS SUMMARY | 2023-12-20 10:57 | XMS_ITS | Encounter Summary ---
Author Organization [facility] [place] [address] Care Team Providers Care Peoplesoft Hrms Developer Name Role Phone Demetri Temple Primary Care Provider Encounter Details Date Type Department Care Team (Late st Contact Info) Description 08/31/2022 Notes Only [facility] [place] [address] Alma Siegel Social History Tobacco Use Types Packs/Day Years [...] as of this encounter Progress Notes * Alma Siegel - 08/31/2022 12:00 PM EDT Sent out office visit notes from 08/23/21 with Marianna Arana APRN to Forepart Reducer Shannan Lundberg @ fax # [phone]. Missing documentation from previous note that had been sent. Resent with complete notes including follow up plan. documented in this encounter Plan of Treatment Not on file documented as of this encounter Visit Diagnoses Not on filedocumented in this encounter Care Teams Peoplesoft Hrms Developer Relationship Specialty Start Date End Date Demetri Temple PA [address] [place] [address] PCP - General Internal Medicine 08/29/22 documented as of this encounter
--- OUTSIDE RECORDS SUMMARY | 2023-12-20 10:57 | XMS_ITS | Encounter Summary ---
Author Organization [facility] [place] [address] Care Team Providers Care Hooker Machine Tender Name Role Phone Leslie Briggs APRN Primary Care Provider [phone] Encounter Details Date Type Department Care Team (Late st Contact Info) Description 05/16/2022 1:30 PM EST Office [place] [address] [facility] [place] [address] Surgery follow-up Social History Tobacco Use Types [...] this encounter Progress Notes * Connie Mehta H - 05/16/2022 1:30 PM EST Plastic Surgery Follow Up Note Provider: Yousif Bentley M.D. Date of Surgery: 10/08/21 Procedure(s): left carpal and cubital tunnel, medial epicondylectomy, fat grafting Complications: None Reported HPI: Patient returns to clinic for a follow up visit. At each visit he continues to express his frustration at not seeing improvement and states that his symptoms just keep worsening. At this point all of his fingers on the left hand are consistently numb and has difficulty with every day tasks. He states that he has a hard time driving, holding onto the steering wheel and grasping in general. His pain has been waking him up at night. He has seen the pain clinic at [facility] and states that they told him that proceeding with steroid injections wouldn't be beneficial. He continues working with OT. 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 Impression: Dallas Scruggs is a 36 y.o. male who was seen today for follow-up. Patient with worsening symptoms since proceeding with left carpal and cubital tunnel, medial epicondylectomy, fat grafting. I discussed with patient that since he has worsening of his symptoms with no improvement post surgery that I wouldn't want to proceed with revising the area which could worsenhis situation due to the extensive scar tissue he currently has. Although, on examination he has good muscle strength. I discussed with him that I would follow up with Dr. Panchal in regards to his situation. Plan: Follow up with Dr. Panchal in regards to the patient. I, Connie Mehta, have performed the documentation for this encounter in the presence of and acting as a scribe for YOUSIF BENTLEY MD. documented in this encounter Plan of Treatment Not on file documented as of this encounter Visit Diagnoses Diagnosis Surgery follow-up Follow-up examination, following unspecified surgery documented in this encounter Care Teams Hooker Machine Tender Relationship Specialty Start Date End Date Leslie Briggs APRN [address] [place] [address] PCP - General Family Medicine 05/11/21 08/28/22 documented as of this encounter
--- OUTSIDE RECORDS SUMMARY | 2023-12-20 10:57 | XMS_ITS | Encounter Summary ---
Author Organization [facility] Address [facility] [place] [address] Care Team Providers Care Air Lift Operator Name Role Phone Leslie Briggs APRN Primary Care Provider [phone] Encounter Details Date Type Department Care Team (Late st Contact Info) Description 10/10/2021 Telephone [place] [address] Isabella Hull MD [facility] [place] [address] Social History Tobacco Use Types Packs/Day Years [...] encounter Miscellaneous Notes * Telephone Encounter - Isabella Hull MD - 10/10/2021 1:12 PM EDT Patient called stating pain 8/10. Patient takes suboxone and was taking oxycodone 10mg as breakthrough pain. Patient cannot take NSAIDs due to history of GERD. Patient stating he is able to feel and move his fingers, movement can increase pain from 8/10 to 9/10. Discussed with patient that supply would be for 1-2 days, would need exam afterwards. Patient expressed understanding. Isabella Hull MD documented in this encounter Plan of Treatment Not on file documented as of this encounter Visit Diagnoses Diagnosis Carpal tunnel syndrome on left Carpal tunnel syndrome documented in this encounter Care Teams Air Lift Operator Relationship Specialty Start Date End Date Leslie Briggs, TAX SPECIALIST [address] [place] [address] PCP - General Family Medicine 05/11/21 08/28/22 documented as of this encounter
--- OUTSIDE RECORDS SUMMARY | 2023-12-20 10:57 | XMS_ITS | Encounter Summary ---
Author Organization [facility] [place] [address] Care Team Providers Care Cable Maker Name Role Phone Leslie Briggs APRN Primary Care Provider [phone] Encounter Details Date Type Department Care Team (Late st Contact Info) Description 05/25/2022 Telephone [place] [address] Nita Mcfadden Social History Tobacco Use Types [...] on filedocumented in this encounter Care Teams Cable Maker Relationship Specialty Start Date End Date Leslie Briggs APRN [address] [place] [address] PCP - General Family Medicine 05/11/21 08/28/22 documented as of this encounter
--- OUTSIDE RECORDS SUMMARY | 2023-12-20 10:57 | XMS_ITS | Encounter Summary ---
Author Organization Count Includes [facility] Address [facility] Mauricio dias [place] [id number] Care Team Providers Care Senior Sas Programmer Name Role Phone Leslie Briggs APRN Primary Care Provider [phone] Reason for Visit * Reason Comments Advice Only s/p left carpal tunn el release and cubital tunnel in Jun. has come back worse than it was * Consultation (Routine) - Closed Specialty Diagnoses / Procedures Referred By Berenice barragan Referred To Contact Plastic Surgery Diagnoses LEFT RECURRENT CUBITAL TUNNEL & WRIST PAIN W/C DOI 03/18/2020 Procedures CONSULT Ken Andrade MD [address] [place] [address] Parker Rogers MD [facility] [address] Referral ID Status Reason Start Date Expiration Date V isits Requested Visits Authorized [id number] Closed Consult, Test & Treat PCP Updated and/or Approved 05/13/2021 05/13/2022 6 6 Encounter Details Date Type Department Care Team (Late st Contact Info) Description 05/13/2021 2:45 PM EST Office [place] [address] Parker Rogers MD [facility] [address] Lesion of left ulnar nerve Social History [...] - Inhaled Oxygen Concentration - - Weight 59 kg (130 lb) 05/13/2021 2:49 PM EST Height 177.8 cm (5' 10) 05/13/2021 2:49 PM EST Body Mass Index 18.65 05/13/2021 2:49 PM EST documented in this encounter Progress Notes * Praker Rogers MD - 05/13/2021 2:45 PM EST Plastic Surgery Hand Consultation Note Provider: Parker Rogers M.D. I have been asked to see the patient by Ken Andrade CC: Hand numbness HPI: Dallas Scruggs is a 35 y.o. male who presents to clinic with concerns for left forearm pain. Pain is mostly located to the medial elbow but also at the endo incision site at the left wrist. Surgical history consists of proceeding with a left endoscopic carpal and open cubital release back in June of this year by Dr. Andrade. He complains that his pain while initially improved immediately after surgery, has worsened since surgery. Pain is worse with activity. He mentions that there was a period of time that he had difficulty achieving full elbow extension due to his pain. One of his concerns is his significant forearm muscle waisting. Social History Socioeconomic History ??? Marital status: Single Spouse name: Not on file ??? Number of children: Not on file ??? Years of education: Not on file ??? Highest education level: Not on file Occupational History ??? Not on file Tobacco Use ??? Smoking status: Former Smoker Quit date: 03/10/2015 Years since quittin.1 ??? Smokeless tobacco: Never Used Substance and Sexual Activity ??? Alcohol use: Never ??? Drug use: Yes Types: Marijuana ??? Sexual activity: Yes Other Topics Concern ??? Not on file Social History Narrative ??? Not on file Social Determinants of Health Financial Resource Strain: Not on file Food Insecurity: Not on file Transportation Needs: Not on file Physical Activity: Not on file Housing Stability: Not on file Allergies Allergen Reactions ??? Sulfa (Sulfonamide Antibiotics) Hives Current Outpatient Medications on File Prior to Visit Medication Sig Dispense Refill ??? gabapentin (NEURONTIN) 600 mg Tablet nightly. ??? lidocaine 5 % Gel 3 times daily. ??? propranoloL (Inderal) 20 mg Tablet 2 times daily. ??? buprenorphine-naloxone (Suboxone) 8-2 mg Film daily. ??? clonazePAM (KlonoPIN) 0.5 mg Tablet Take 1 tablet by mouth 2 times daily. ??? diclofenac (Voltaren) 1 % Gel Apply 2 g topically 2 times daily. ??? galcanezumab-gnlm (Emgality Pen) 120 mg/mL Pen Injector Inject 120 mLs subcutaneously every 28 days. ??? rizatriptan (MAXALT) 10 mg Tablet Take 10 mg by mouth as needed. No current facility-administered medications on file prior to visit. Examination: There were no vitals taken for this visit. No acute distress Left Upper extremity: L elbow/forearm: shot scar at cubital tunnel, FCU wasting, +tenderness over the entire scar but most noted at proximal extent of incision line. L hand: No thenar or hypothenar atrohpy, APB intact and strong, no abnormal hand posturing, no signof instrinsic weakness of the hand, well healed endo CTR insicion, sensation to index finger improved in comparison to small and ring, Negative compression test, no synovitis noted just proximal to CT. 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 Impression: Dallas Scruggs is a 35 y.o. male patient s/p left endoscopic and cubital release continues to experience pain, discomfort and finger paresthesia. Discussed with patient that I would like toproceed with ordering a more recent MRI specifically focusing on mid-upper arm to mid forearm. Plan: Obtain MRI results from [facility] Referral for MRI, left arm no contrast. I, Connie Mehta, have performed the documentation for this encounter in the presence of and acting as a scribe for Parker Rogers MD. documented in this encounter Plan of Treatment Not on file documented as of this encounter Visit Diagnoses Diagnosis Lesion of left ulnar nerve Lesion of ulnar nerve documented in this encounter Care Teams Senior Sas Programmer Relationship Specialty Start Date End Date Leslie Briggs, ACCESS SERVICES ASSISTANT [address] [place] [address] PCP - General Family Medicine 05/11/21 08/28/22 documented as of this encounter
--- OUTSIDE RECORDS SUMMARY | 2023-12-20 10:57 | XMS_ITS | Encounter Summary ---
Author Organization [facility] [place] [address] Care Team Providers Care Instrument Worker Name Role Phone Leslie Briggs APRN Primary Care Provider [phone] Encounter Details Date Type Department Care Team (Late st Contact Info) Description 09/20/2021 Telephone [place] [phone] Nita Mcfadden Social History Tobacco Use Types [...] on filedocumented in this encounter Care Teams Instrument Worker Relationship Specialty Start Date End Date Leslie Briggs APRN [address] [place] [address] PCP - General Family Medicine 05/11/21 08/28/22 documented as of this encounter
--- OUTSIDE RECORDS SUMMARY | 2023-12-20 10:57 | XMS_ITS | Encounter Summary ---
Author Organization [facility] [place] [address] Care Team Providers Care Warehouse Logistics Manager Name Role Phone Demetri Temple Primary Care Provider [phone] Reason for Visit * Reason Onset Date Comments Other 03/23/2021 Encounter Details Date Type Department Care Team (Late st Contact Info) Description 03/23/2021 Telephone Neurology at [facility] [place] [address] Kameron [place] [address] Other Social History Tobacco Use Types Packs/Day Years [...] encounter Miscellaneous Notes * Telephone Encounter - Balbir Alaniz RN - 04/28/2021 4:07 PM EST Retturned call to Carrie. Reached voicemail: Left a message. Please make your requests for office notes from medical records you can call [phone] or you can fax your medical records request to [phone]. * Telephone Encounter - Balbir Alaniz, RN - 03/23/2021 12:20 PM EDT Returned call to Carrie to discuss. Walker make your requests from medical records. Send a faxed medical records request on letterheadto [facility] [place] Records Reached voicemail. Mailbox full unable to leave message. * Telephone Encounter - Peg Faulkner - 03/23/2021 10:00 AM EDT Call Center / Print Cutter Message - General Issue Call Provider patient sees in Clinic: Dr. Kameron Lim MD Caller and relationship (if other than patient-full name): Carrie- nurse case finisherhealth services manager and position if other than patient or family: NA Call back number: [phone] Ok to leave a message: y Reason for call: Carrie called today requesting a copy of Dr. Lim office notes from 03/18/21 visit. Please fax to [phone] (direct fax). Disposition of Call (choose one and remove others): ??? Routine Message sent to the Nurse: yes Nurse/Print Cutter contacted via: Message: y Call: n Pager: n documented in this encounter Plan of Treatment Not on file documented as of this encounter Visit Diagnoses Not on filedocumented in this encounter Care Teams Warehouse Logistics Manager Relationship Specialty Start Date End Date Demetri Temple PA PCP - General Internal Medicine 02/16/21 05/10/21 documented as of this encounter
--- OUTSIDE RECORDS SUMMARY | 2023-12-20 10:57 | XMS_ITS | Encounter Summary ---
Author Organization [facility] Address [facility] [place] [address] Care Team Providers Care School Health Assistant Name Role Phone Demetri Temple Primary Care Provider [phone] Reason for Visit * Consultation (Routine) - Closed Specialty Diagnoses / Procedures Referred By Contac t Referred To Contact Neurology Diagnoses S/P LECTR/CUBITAL, CONTINUED SYMPTOMS, ?CRPS eKn Andrade MD [address] [place] [address] [facility] Neu[facility] [address] [place] [address] Referral ID Status Reason Start Date Expiration Date V isits Requested Visits Authorized [id number] Closed Consult, Test & Treat Connection Center PCP Updated and/or Approved 02/10/2021 02/10/2022 6 6 Encounter Details Date Type Department Care Team (Late st Contact Info) Description 03/18/2021 12:00 PM EDT [place] [phone] Kameron Lim MD [facility] [place] [address] Ulnar neuropathy at elbow of left upper extremity; Left hand pain Social History Tobacco Use Types Packs/Day [...] as of this encounter Progress Notes * Kameron Lim MD - 03/18/2021 12:00 PM [place] [address] 03/18/2021 Patient name: Dallas Scruggs Date of : 1985 Referring provider: Ken Andrade MD [address] [place] [id number] HISTORY REASON FOR REFERRAL/CHIEF COMPLAINT: Left UE symptoms HISTORY OF PRESENTING COMPLAINTS: He says he has work related carpal tunnel and cubital tunnel issues. He had a CTS surgery and cubital tunnel release done in Jun 2020. Since the surgery he has been having a lo of pain at left elbow.He feels like his muscles are pinched on the left side. Feels pain in left hand as well. He is having trouble holding things with his left hand. He is working light duty at this time. He is seeing orthopedics who referred here for evaluation of ? CRPS. He had EMG done at [facility] prior to the surgery. He is taking gabapentin since the surgery. No symptoms in R hand. He has migraines, now well controlled with Emgality. He is seeing a Neurologist at [facility] who did the initial EMG and she is on leave atthis time. PMHx: No past medical history on file. No past surgical history on file. CTS Migraine on Emgality. Family History: Family History Problem Relation Age of Onset ??? Connective Tissue Disease Paternal Grandfather No family history of neurologic problems. Social History: reports that he quit smoking about 6 years ago. He has never used smokeless tobacco. He reports current drug use. Drug: Marijuana. He reports that he does not drink alcohol. No flowsheet data found. 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 Review of systems: [x] Review of systems otherwise negative Medications: Current Outpatient Medications on File Prior to Visit Medication Sig Dispense Refill ??? clonazePAM (KlonoPIN) 0.5 mg Tablet Take [...] facility-administered medications on file prior to visit. Allergies: Allergies Allergen Reactions ??? Sulfa (Sulfonamide Antibiotics) Hives EXAMINATION Vitals: There were no vitals taken for this visit. General Examination: Appearance: alert, no distress Cardiovascular: Rate regular, S1S2 normal, no murmur Respiratory: Symmetric expansion, lungs clear to auscultation Extremity: no edema Skin: No rashes noted Neurological Examination o Higher functions: - Speech: fluent, no aphasia/dysarthria or dysphonia - Alert and oriented. o Cranial Nerves - II-XII: Pupils bilaterally equal and symmetric conjugate gaze, reacting to light. No ptosis/nystagmus. Vision normal. No field deficits. EOMI. No facial droop. o Reflexes - +2 Bilaterally biceps, BR , knee and ankles. o Motor and Coordination - Normal tone, bulk strength and coordination of right and left sided muscles o Sensory - Tenderness cubital region left side. - Sensory asymmetry in left forearm medially. Sensory asymmetry in left ulnar hand distribution. o Skull and Spine/ Gait - Normal - Normal gait LABS AND IMAGING Labs GENERAL THYROID: No results found for: TSH, F1CZFHM, FREET4, TT4, THYROIDAB, THGAB FolateNo results found for: SFOLATE ESRNo results found for: SEDRATE CRPNo results found for: CRP B12No results found for: WRCCCATC05 CKNo results found for: CK Angiotensin ConvertaseNo results found for: JAVY INFECTIONS HIVNo results found for: HIV12 HEPATITIS PANELNo results found for: HAV, HEPBSAB, HBEAG, HEPBSAG, HEPCAB AUTOIMMUNE PANEL ANANo results found for: FREDERICK DSDNANo results found for: DNAABDS Jason results found for: INEZ C3,C4, COMPLEMENTSNo results found for: C3, C4 CARDIOLIPIN, LUPUSNo components found for: CARDIOLIPINANTIBODY, LUPUS, ANTICOAGULANT CELIAC: TTG, GLIADIN, ENDOMYSIALNo components found for: TTRANSGLUTAMINASEANTIBODY ANTIGLIADINANTIBODY VASCULITIS: C,P,ANCA, MPONo results found for: PANCA, CANCA, MYELOP, PR3AB NMONo components found for: NEUROMYELITISOPTICAANTIBODY MG: ACHRAB, Anit MuSK, LEMSNo components found for: ACETYLCHOLINERECEPTORABBINDING, LEMSANTIBODY, ANTISKELETALMUSCLEANTIBODY CRYOGLOBULINSNo components found for: CRYOGLOBULINS METABOLIC CERULOPLASMINNo components found for: CERULOPLASMIN BETA 2 MICROGLOBULINNo results found for: B2MG No results found for: TPROTEINPEP, ALBELECT, ALPHA1, ALPHA2, GAMMAGLOB, APB1 CORTISOLNo results found for: CORTISOL LDH No results found for: LDH NUTRITIONAL VITAMIN DNo results found for: 25OHVITD PRE ALBUMINNo results found for: PREALBUMIN FERRITINNo results found for: IRON COPPERNo results found for: COPPER PERIPHERAL NEUROPATHY HEMOGLOBIN A1CNo results found for: HA1C LIPID PROFILENo results found for: CHLPL, HDL, CHOLHDL, TRIG, LDLCHOL, LDLDIRECT NANDO 65No results found for: ZQV14MB ANTI GM1,ANTI SGPG, MAG@RESUFAST (MAGAUTOAB,SGPG,MAGWB,GM1AB)@ HEAVY METAL SCREENNo results found for: LEAD, ARSENIC METHYLMLONIC ACIDNo results found for: METHYLMAL IgA, IGG No results found for: IGA, IGG CSF PANEL No results found for: NUCCELMANCSF, RBCCSFCT, SEGSCSF, LYMPHSCSF, NUMCELLCTCSF, CSFGLUC, CSFPROTEIN, XANTHOCHROM, MCSBFTYPE, MCS, CSFIGGINDEX, LYMEAB, VDRLSCRNCSF, OLIGOCSF, HSVDNA, ARBOWNILECSF, ENTVPCR, VZVPCR PARANEOPLASTIC PANEL No results found for: PARANEOINTRP, ANNA1, ANNA2, ANNA3, AGNA1, PCA1, PCA2, PCATYPETR, AMPHIPHYSIN,[id number], STRIATMSCLAB, CACHABPQTYPE, CACHABNTYPE, ACHRBINDAB, NEUROKCHAB, NMDARECEPTOR, CGO17OI THROMBOSIS HOMEOCYSTEINENo results found for: HOMOCYSTEINE THROMBOSIS PANELNo results found for: ACAIGM, [id number] FACTOR V LEIDEN No components found for: FACTORVLEIDEN PROTEIN C,SNo components found for: PROTEINC, PROTEINS ANTITHROMBIN IIINo components found for: ANTITHROMBINIII Miscellaneous Send outsNo results found for: MISCSENDOUT, MISCMAYO ASSESSMENT, PLAN & RECOMMENDATIONS ASSESSMENT: 35 Y M with history of left Carpal tunnel and left cubital tunnel release referred for evaluation of persistent pain at left elbow and left hand. No significant weakness or wasting noted.He has sensory symptoms in multiple nerve distributions. EMG/ NCS shows residuals of prior CTS and UNE with no significant neuropathy or radiculopathy at this time. IMPRESSION: Residual of left CTS/ UNE. PLAN/RECOMMENDATIONS: ??? His symptoms seems related to residuals of left UNE ??? Low suspicion of CRPS. ??? Continue gabapentin. ??? Consider steroid injection/ pain clinic evaluation for his pain symptoms. ??? Follow up as needed. Kameron Lim MD Department of Neurology [facility] documented in this encounter Plan of Treatment Not on file documented as of this encounter Visit Diagnoses Diagnosis Ulnar neuropathy at elbow of left upper extremity Left hand pain Pain in limb documented in this encounter Care Teams School Health Assistant Relationship Specialty Start Date End Date Demetri Temple PA PCP - General Internal Medicine 02/16/21 05/10/21 documented as of this encounter
--- OUTSIDE RECORDS SUMMARY | 2023-12-20 10:57 | XMS_ITS | Encounter Summary ---
Author Organization [facility] [place] [address] Care Team Providers Care Clinical Medical Assistant Name Role Phone Leslie Briggs APRN Primary Care Provider [phone] Encounter Details Date Type Department Care Team (Late st Contact Info) Description 12/03/2021 Telephone [place] [phone] Nita Mcfadden Social History Tobacco Use Types [...] on filedocumented in this encounter Care Teams Clinical Medical Assistant Relationship Specialty Start Date End Date Leslie Briggs APRN [address] [facility] [place] [address] PCP - General Family Medicine 05/11/21 08/28/22 documented as of this encounter
--- OUTSIDE RECORDS SUMMARY | 2023-12-20 10:57 | XMS_ITS | Encounter Summary ---
Author Organization [facility] [place] [address] Care Team Providers Care Television Engineer Name Role Phone Cynthia Briggsh MART Primary Care Provider [phone] Reason for Referral * Diagnostic Test (Routine) - Closed Specialty Diagnoses / Procedures Referred By Contac t Referred To Contact Radiology Diagnoses Lesion of left ulnar nerve Procedures MRI Upper Extremity Non Joint wo Contrast Parker Rogers MD [facility] [address] [place] [address] [place] [address] Referral ID Status Reason Start Date Expiration Date V isits Requested Visits Authorized [id number] Closed Specialty Service Requested 06/05/2021 12/02/2022 1 1 Reason for Visit * Diagnostic Test (Routine) - Closed Specialty Diagnoses / Procedures Referred By Contac t Referred To Contact Radiology Diagnoses Lesion of left ulnar nerve Procedures MRI Upper Extremity Non Joint wo Contrast Parker Rogers MD [facility] [place] [address] [place] [address] Referral ID Status Reason Start Date Expiration Date V isits Requested Visits Authorized [id number] Closed Specialty Service Requested 06/05/2021 12/02/2022 1 1 Encounter Details Date Type Department Care Team (Latest Contact Info) Description 06/12/2021 1:05 PM EST - 06/12/2021 11:59 PM EST Hospital Encounter MRI [place] [facility] [place] [address] Parker Rogers MD [facility] [place] [address] Lesion of left ulnar nerve Discharge Disposition: Home Social History Tobacco Use [...] AM EDT documented as of this encounter Medications at Time of Discharge Medication Sig Dispensed Refills Start Date End Date rizatriptan (MAXALT) 10 mg Tablet Take 10 mg by mouth as needed. 11/28/2019 gabapentin (NEURONTIN) 600 mg Tablet nightly. 05/16/2022 lidocaine 5 % Gel 3 times daily. 09/01/2020 07/08/19 propranoloL (Inderal) 20 mg Tablet 2 times daily. 12/15/2020 07/08/2021 buprenorphine-naloxon e (Suboxone) 8-2 mg Film daily. 07/08/2021 clonazePAM (KlonoPIN) 0.5 mg Tablet Take 1 tablet by mouth 2 times daily. 04/15/2022 galcanezumab-gnlm (Emgality Pen) 120 mg/mL Pen Injector Inject 120 mLs subcutaneously every 28 days. 10/08/2021 documented as of this encounter Plan of Treatment Not on file documented as of this encounter Procedures Procedure Name Priority Date/Time Associated Diagnosis Comments MRI UPPER EXTREMITY NON JOINT WO CONTRAST Routine 06/12/2021 2:32 PM EST Lesion of left ulnar nerve documented in this encounter Results * MRI Upper Extremity [...] who have questions please contact the health child care sitter that requested your imaging first. ? Electronically signed by: Amy Alaniz MD, [facility] ([phone]), at 06/14/2021 10:58 AM Narrative 06/14/2021 10:58 AM EST EXAMINATION: MRI [...] patients who have questions please contactthe health child care sitter that requested your imaging first. Parker Rogers MD IMG MRI ORDERABLES documented in this encounter Visit Diagnoses Diagnosis Lesion of left ulnar nerve Lesion of ulnar nerve documented in this encounter Care Teams Television Engineer Relationship Specialty Start Date End Date Leslie Briggs, DIETETIC TECHNICIAN REGISTERED [address] [facility] [place] [address] PCP - General Family Medicine 05/11/21 08/28/22 documented as of this encounter
--- OUTSIDE RECORDS SUMMARY | 2023-12-20 10:57 | XMS_ITS | Encounter Summary ---
Author Organization [facility] [place] [address] Care Team Providers Care Track Helper Name Role Phone Leslie Briggs APRN Primary Care Provider [phone] Encounter Details Date Type Department Care Team (Late st Contact Info) Description 06/04/2021 Orders [place] [address] Parker Rogers MD [facility] [address] Social History Tobacco Use Types Packs/Day Years [...] on filedocumented in this encounter Care Teams Track Helper Relationship Specialty Start Date End Date Leslie Briggs APRN [address] [facility], [place] [address] PCP - General Family Medicine 05/11/21 08/28/22 documented as of this encounter
--- OUTSIDE RECORDS SUMMARY | 2023-12-20 10:58 | XMS_ITS | Encounter Summary ---
Author Organization [facility] [place] [address] Care Team Providers Care Social Welfare Clerk Name Role Phone Kanwal Vaca APRN Primary Care Provider [phone] Encounter Details Date Type Department Care Team (Late st Contact Info) Description 06/16/2020 Ancillary Procedure [place] [phone] Demetri Temple PA [address] [place] [address] Social History Tobacco Use Types Packs/Day Years [...] LIBRARY STORAGE ONLY MR UPPER EXTREMITY Routine 06/16/2020 12:00 AM EST documented in this encounter Results * Film Library- Storage Only MR Upper Extremity (06/16/2020 12:00 AM EST) Narrative [facility] - 03/26/2021 8:52 AM EDT This exam is auto-finalizing. It's purpose is for storage only. Demetri SEAY FILM LIBRARY ORD ERABLES [place], [place] documented in this encounter Visit Diagnoses Not on filedocumented in this encounter Care Teams Social Welfare Clerk Relationship Specialty Start Date End Date Kanwal Vaca APRN PCP - General 04/20/10 02/15/21 documented as of this encounter
--- OUTSIDE RECORDS SUMMARY | 2023-12-20 10:58 | XMS_ITS | Encounter Summary ---
Author Organization [facility] Address [facility] [place] [address] Care Team Providers Care Cone Classifier Tender Name Role Phone Kanwal Vaca APRN Primary Care Provider [phone] Encounter Details Date Type Department Care Team (Late st Contact Info) Description 05/11/2020 Ancillary Procedure [place] [phone] Demetri Temple PA [address] [facility] [address] [place] [address] Social History Tobacco Use Types Packs/Day Years [...] Diagnosis Comments FILM LIBRARY STORAGE ONLY DX WRIST Routine 05/11/2020 12:00 AM EST documented in this encounter Results * Film Library- Storage Only DX Wrist (05/11/2020 12:00 AM EST) Narrative [facility] - 03/26/2021 8:53 AM EDT This exam is auto-finalizing. It's purpose is for storage only. Demetri SEAY FILM LIBRARY ORD ERABLES [facility] [place], [place] documented in this encounter Visit Diagnoses Not on filedocumented in this encounter Care Teams Cone Classifier Tender Relationship Specialty Start Date End Date Kanwal Vaca APRN PCP - General 04/20/10 02/15/21 documented as of this encounter
[2023-12-20 16:41] LABS: *AMPHETAMINES SCREEN URINE Negative (Negative); *BARBITURATES SCREEN URINE Negative (Negative); *BENZODIAZEPINES SCREEN URINE Negative (Negative); Cannabinoids THC Negative (Negative); Cocaine Screen,Urine Positive (Negative); METHADONE URINE SCREEN Positive (Negative); OPIATES URINE SCREEN Negative (Negative); Tricyclic Antidepressants Negative (Negative)
[2023-12-29 14:38] LABS: 2-OH-Ethyl-Flurazepam Negative ng/mL (Cutoff: 10); 7-NH-Clonazepam 204 ng/mL (Cutoff: 10); 7-NH-Flunitrazepam Negative ng/mL (Cutoff: 10); Alpha OH-Alprazolam Negative ng/mL (Cutoff: 10); Alpha-OH Midazolam Negative ng/mL (Cutoff: 10); Alpha-OH-Triazolam Negative ng/mL (Cutoff: 10); Alprazolam Negative ng/mL (Cutoff: 10); Benzodiazepines Interpretation Positive.; Chlordiazepoxide Negative ng/mL (Cutoff: 10); Clobazam Negative ng/mL (Cutoff: 10); Clonazepam Negative ng/mL (Cutoff: 10); Diazepam Negative ng/mL (Cutoff: 10); Flurazepam Negative ng/mL (Cutoff: 10); Lorazepam Negative ng/mL (Cutoff: 10); Midazolam Negative ng/mL (Cutoff: 10); N-Desmethylclobazam Negative ng/mL (Cutoff: 10); Prazepam Negative ng/mL (Cutoff: 10); Temazepam Negative ng/mL (Cutoff: 10); Triazolam Negative ng/mL (Cutoff: 10); Zolpidem Carboxylic acid Negative ng/mL (Cutoff: 10)
== END 2023-12-20 10:48 | disposition home or self-care (01) ==
LOC: NCHCN 10:47
PROVIDERS: PCP Physician Assistant; Visit Provider Physician Assistant
DX: F41.8 Other specified anxiety disorders (principal); R82.5 Elevated urine levels of drugs, medicaments and biological substances
CPT/HCPCS: 80307; 80346

== ENCOUNTER 2024-12-27 19:41 | Outpatient (REF) | payer MEDICAID, SELFPAY ==
[2024-12-27 16:06] LABS: ALT 23 U/L (16-63); AST 24 U/L (15-37); Albumin 4.4 g/dL (3.4-5.0); Alkaline Phosphatase 78 U/L (46-116); Anion Gap 7.6 mmol/L (3-11); BUN 23 mg/dL (7-18); Bilirubin, Total 0.2 mg/dL (0.2-1.0); CO2 32.4 mmol/L (21.0-32.0); Calcium 9.2 mg/dL (8.5-10.1); Chloride 103 mmol/L (98-107); Estimated GFR 70.78 (mL/min/1.73m2); Glucose 77 mg/dL (74-106); Potassium 3.9 mmol/L (3.5-5.1); Sodium 143 mmol/L (136-145); Total Protein 7.9 g/dL (6.4-8.2)
[2024-12-27 16:13] LABS: Hemoglobin A1C 5.3 % (<5.7)
[2024-12-30 09:57] LABS: Hepatitis C Ab w Rflx HCV PCR Negative (Negative)
== END 2024-12-27 19:42 | disposition home or self-care (01) ==
LOC: NCHCN 19:41
PROVIDERS: PCP Physician Assistant; Visit Provider Physician Assistant
DX: R73.03 Prediabetes (principal); Z11.59 Encounter for screening for other viral diseases
CPT/HCPCS: 80053; 86803; 83036